=== PATIENT | female | born 1965 | race Caucasian/White ===

== ENCOUNTER 2025-01-31 06:33 | Inpatient (IN) | payer MEDICAID, SELFPAY ==
[2025-01-31] VITALS (65 sets, daily range): BP systolic 64–128; BP diastolic 39–89; PULSE 58–131; RESP 12–26; TEMP 36.2–36.7; O2SAT 67–100; BMI 29.0
--- NOTE | 2025-01-31 06:49 | XR_ITS ---
Examination: AP chest single view TECHNIQUE: AP portable upright chest single view Date and time: January 31, 2025 0705 hours Comparison November 14, 2023 INDICATIONS: Shortness of breath wheezing beginning today FINDINGS: Mild heart failure Mild enlargement cardiac contour Prominent vascular congestion. No lobar pneumonia IMPRESSION: Mild heart failure
--- NOTE | 2025-01-31 06:53 | EDNOTE_ITS ---
<Statement entered by Nina Reid MD - 02/01/25 08:17> I, Nina Reid MD, have reviewed the history, exam, and assessment of the patient. I have evaluated the patient independently and agree with the plan of care documented by [ ]. All diagnostic studies were reviewed and discussed. I confirm the diagnosis as documented by the Resident. I was present during the Medical Decision Making for this patient. The patient's plan of care was created between myself and the Resident and consistent with our discussion of the patient's case. ED General RME/HPI General Chief complaint: Shortness of Breath/Dyspnea Stated complaint: SOB Time Seen by Provider: 01/31/25 06:36 Arrival date/time: 01/31/25 06:33 RME / HPI RME / HPI narrative: 59-year-old female with past medical history of past substance abuse, bipolar disorder,A-fib, COPD, and active smoker comes in to the ER brought in by ambulance for shortness of breath. Patient was really short of breath and having some increased work of breathing when initially assessed and was not able to talk in full sentences. Patient was also more somnolent, but was able to state where she was and who she was, but not oriented to time. Patient mentioned that she has been having eye swelling for around 1 week and that she has been having shortness of breath for some time now, but does not remember since when. Stated no chest pain, nausea, vomiting, changes in bowel movement, or dysuria. Otherwise no other complaints at this time. Patient was saturating okay on nasal cannula. Related Data Previous Rx's ?Medication ?Instructions ?Recorded albuterol sulfate 90 mcg/actuation 1 inh inhalation QI D PRN shortness 11/04/23 aerosol inhaler of breath or wheezing #8.5 g kurt furosemide 20 mg tablet (Lasix) 20 mg PO QDAY 1 month #30 tabs 11/18/23 methylprednisolone 4 mg tablets in 4 mg PO QAM #21 tab s 11/18/23 a dose pack (Medrol (Severiano)) metoprolol succinate 25 mg capsule 25 mg PO QDAY 1 mon #30 ea 11/18/23 sprinkle, ext. release 24 hr Allergies Allergy/AdvReac Type Severity Reaction Status Date / Time Penicillins Allergy Severe I WILL Verified 01/31/25 06:45 Review of Systems Review of Systems Systems Reviewed: All systems reviewed, normal except as documented Past Medical History Past Medical History NEUROLOGIC: Positive Neurological Disorders and Seizures CARDIAC: Positive Cardiac Disorders and Hypertension; Negative Congestive Heart Failure RESPIRATORY: Positive Chronic Obstructive Pulmonary Disease (COPD) and Asthma GASTROINTESTINAL: Negative Gastrointestinal Disorders GENITOURINARY: Negative Genitourinary Disorders or Renal Disease REPRODUCTIVE: Negative Pelvic Inflammatory Disease MUSCULOSKELETAL: Negative Musculoskeletal Disorders ENDOCRINE: Negative Endocrine Disorders, Diabetes Mellitus Type 1, Diabetes Mellitus Type 2 or Jose's Disease HEMATOLOGIC: Negative Blood Disorders Family History FAMILY HISTORY: Negative Family Neurologic Problems Surgical History SURGICAL: Positive Section Social History SMOKING STATUS: Current every day smoker SUBSTANCE USE: marijuana and methamphetamine ED Exam Narrative Physical exam: Gen: A&O X 2 (not to time), mild respiratory distress HEENT: Eyes swollen RYLEE, Some discharge appreciated RYLEE, EOMI, Pupils reactive RYLEE, not icteric. External ears normal. No rhinorrhea. Dry mucous membranes. Neck: Supple, full range of motion, no observable masses, No meningeal sign. Lungs: Increased work of breathing, Wheezing bilateral. CV: RRR, no murmurs. Abdomen: Soft, nondistended, nontender, No rebound tenderness. MSK: No joint swelling, no redness, peripheral pulses presents, 1+ peripheral edema. Skin: No rashes, petechiae, lesions. Neuro: Somnolent, but able to follow commands and answer questions. No focal n eurological deficits. Psych: Cooperative Course Quality Measures none Orders Category Date Time Status Airborne precautions NOW Care 01/31/25 08:08 Active Bedside COVID-19 Antigen Test NOW Care 01/31/25 06:49 Active Bedside Influenza A&B Antigen Test NOW Care 01/31/25 06:51 Completed COVID-19 Screening Questionnaire NOW Care 01/31/25 11:33 Active Resource Protection Specialist Q4H START 00 Care 01/31/25 06:49 Active Continuous Pulse Oximetry NOW Care 01/31/25 06:49 Completed Decision to Admit X1 Care 01/31/25 11:33 Active EKG (ED ONLY) *Do not use* NOW Care 01/31/25 06:53 Completed [place]utherford [Urinary Catheter] QS Care 01/31/25 09:40 Active Strict Intake and Output Routine Care 01/31/25 09:40 Ordered CXRP [XR chest 1V portable] Stat Exams 01/31/25 06:49 Completed EKG (ED Only) Stat Exams 01/31/25 06:53 Draft ABG [Arterial Blood Gas] Routine Lab 01/31/25 08:33 Completed ABG [Arterial Blood Gas] Routine Lab 01/31/25 10:48 Completed ABG [Arterial Blood Gas] Stat Lab 01/31/25 07:20 Completed Alcohol, Urine Stat Lab 01/31/25 09:53 Completed CBC [CBC] Stat Lab 01/31/25 07:00 Completed CMP [Comprehensive Metabolic Panel] Stat Lab 01/31/25 07:32 Completed Drug Screen,Urine Stat Lab 01/31/25 09:53 Completed Lactic Acid [Lactate (Lactic Acid)] Stat Lab 01/31/25 07:00 Completed Magnesium Stat Lab 01/31/25 07:32 Completed PT [Prothrombin Time with INR] Stat Lab 01/31/25 07:32 Completed PTT [Partial Thromboplastin Time] Stat Lab 01/31/25 07:32 Completed Procalcitonin Stat Lab 01/31/25 07:32 Completed UA [Urinalysis] Stat Lab 01/31/25 09:53 Completed Albuterol/Ipratr Rt Kaitlynn [Duoneb Rt Kaitlynn] Med 01/31/25 06:49 Discontinued 3 ml INH X1 ONE Artificial Tears Med 01/31/25 09:03 Discontinued See Dose Instructions BOTH EYES X1 ONE Azithromycin Inj [Zithromax Inj] 500 mg Med 02/01/25 09:00 Pending Sodium Chloride 0.9% 250 ml [Ns] 250 ml IV QDAY Azithromycin Inj [Zithromax Inj] 500 mg Med 01/31/25 07:45 Discontinued Sodium Chloride 0.9% 250 ml [Ns] 250 ml IV X1 Furosemide Inj [Lasix Inj] Med 01/31/25 09:40 Discontinued 40 mg IVP X1 ONE Magnesium Sulfate 4 GM Ivpb [Magnesium Sulfate Ivpb] Med 01/31/25 08:41 Active 4 gm in 50 ml IV X1 MethylPREDNISolone. [SoluMEDROL Inj] Med 01/31/25 06:49 Discontinued 125 mg IVP X1 ONE MethylPREDNISolone.* [SoluMEDROL Inj] Med 01/31/25 07:00 Discontinued 125 mg IVP X1 ONE MethylPREDNISolone.* [SoluMEDROL Inj] Med 01/31/25 07:13 Discontinued 125 mg IVP X1 ONE cefTRIAXone/D5w 1gm IV premix [Rocephin/D5w 1gm IV Med 01/31/25 07:34 Discontinued premix] 1 gm in 50 ml IV X1 BiPAP / CPAP NOW RT 01/31/25 07:06 Active Oxygen Delivery NOW RT 01/31/25 06:52 Active Vital Signs Vital signs: Vital Signs Temperature 97.7 F 01/31/25 06:50 Pulse Rate 109 H 01/31/25 06:50 Respiratory Rate 26 H 01/31/25 06:50 Blood Pressure 113/85 H 01/31/25 06:50 Pulse Oximetry (%) 88 L 01/31/25 06:50 Oxygen Delivery Method Nasal Cannula 01/31/25 06:50 Oxygen Flow Rate 3 01/31/25 06:50 Discharge Plan Plan Patient Disposition: Admit Acute Care w/in Hospital Prescriptions/Referrals Prescriptions/Med Rec: No Action albuterol sulfate 90 mcg/actuation HFA aerosol inhaler 1 inh inhalation QID PRN (Reason: shortness of breath or wheezing) Qty: 8.5 0RF methylprednisolone [Medrol (Severiano)] 4 mg tablets,dose pack 4 mg PO QAM Qty: 21 0RF furosemide [Lasix] 20 mg tablet 20 mg PO QDAY 30 Days Qty: 30 1RF metoprolol succinate 25 mg capsule,sprinkle,ER 24hr 25 mg PO QDAY 30 Days Qty: 30 1RF Referrals: No Primary/Family,Physician [Primary Care Provider] - In 1 week Problem List Clinical Impression: Acute exacerbation of chronic obstructive airways disease, Hypoxia Patient/Caregiver Discharge Instructions Print Language: Bahamian Stand Alone Forms: Joan Award Info., Patient Portal Info Letter MDM Narrative [facility] hospital course: 6:44: Patient was seen and greeted personally by myself. Patient did have some increased work of breathing, yet was able to speak, but not sentences. Wheezing noted on auscultation and patient saturating above 88% on 6 L of nasal cannula. Ordered diagnostic imaging and labs as well as methylprednisolone and DuoNebs at this time. Ordered BIPAP. 7:30: Patient's ABG came back with pH of 7.16 and PCO2 of 104. Will continue with BiPAP for now. And reassess after 1 hour. 8:48: Patient reassessed, no clinical change still A/Ox2 and somnolent, but arousable. Patient repeat ABG did not show improvement. Will go up on RR on Bipap. Ordered Artificial eye drops. Repeat ABG in 1 hr after Bipap changes. 9:40: Ordered lasix as patient appears fluid overloaded as well. 11:25: Spoke with ICU resident for possible admission given the patient's repeat ABG did not show much improvement and pH was still 7.3 and pCO2 107. Patient is still alert and oriented x 2 not to time and is able to respond to questions and easily arousable to voice. Will see patient. Case disclosed with Attending Dr. Jeanette Miller PGY2 Disclaimer: Even though this this note was dictated by speech recognition and even though it was carefully revised there may still be minor errors in brickmason supervisor due to voice recognition software. Medication Administration(s) Medication Administration History Azithromycin 500 mg/ Sodium (Chloride) 250 mls @ 250 mls/hr IV QDAY ALIA Stop: 02/08/25 08:59 Magnesium Sulfate (Magnesium Sulfate Ivpb) 4 gm in 50 mls @ 12.5 mls/hr IV X1 ONE Stop: 01/31/25 12:40 Last Admin: 01/31/25 09:09 Dose: 12.5 mls/hr Documented By: ADALID Discontinued Medications Albuterol/Ipratropium (Albuterol/Ipratropium (Duoneb) Rt Kaitlynn 3 Ml Nebu) 3 ml INH X1 ONE Stop: 01/31/25 06:50 Last Admin: 01/31/25 07:14 Dose: 3 ml Documented By: FABIEN Artificial Tears (Artificial Tears 225 Drop/15 Ml Btl) 0 drop BOTH EYES X1 ONE Stop: 01/31/25 09:04 Last Admin: 01/31/25 09:10 Dose: 1 drop Documented By: ADALID Comments: 1 drop per eye Furosemide (Furosemide Inj 10 Mg/Ml 4ml Vial) 40 mg IVP X1 ONE Stop: 01/31/25 09:41 Last Admin: 01/31/25 09:54 Dose: 40 mg Documented By: GM Ceftriaxone Sodium/Dextrose (Rocephin/D5w 1gm Iv Premix) 1 gm in 50 mls @ 100 mls/hr IV X1 ONE Stop: 01/31/25 08:03 Last Admin: 01/31/25 08:05 Dose: Not Given Documented By: ADALID Non-Admin Reason: Discontinued Azithromycin 500 mg/ Sodium (Chloride) 250 mls @ 250 mls/hr IV X1 ONE Stop: 01/31/25 08:44 Last Infusion: 01/31/25 09:13 Dose: Infused Documented By: Admin: 01/31/25 08:03 Dose: 250 mls/hr Documented By: ADALID Methylprednisolone Sodium Succinate (Methylprednisolone Sod Succ 40 Mg Vial) 125 mg IVP X1 ONE Stop: 01/31/25 06:50 Last Admin: 01/31/25 07:42 Dose: Not Given Documented By: ADALID Non-Admin Reason: Discontinued Methylprednisolone Sodium Succinate (Methylprednisolone Sod Succ 62.5 Mg/Ml 2ml Vial) 125 mg IVP X1 ONE Stop: 01/31/25 07:01 Last Admin: 01/31/25 07:42 Dose: Not Given Documented By: ADALID Non-Admin Reason: Discontinued Methylprednisolone Sodium Succinate (Methylprednisolone Sod Succ 62.5 Mg/Ml 2ml Vial) 125 mg IVP X1 ONE Stop: 01/31/25 07:14 Last Admin: 01/31/25 07:41 Dose: 125 mg Documented By: ADALID
--- NOTE | 2025-01-31 06:53 | EKG_ITS ---
[facility] Test Date: 2025-01-31 Pat Name: MICHAEL MILES Department: Room: - Gender: Female [employer]: : 1965 Requested By: Zelalem Miller Order Number: [id number] Reading MD: Zelalem Miller Measurements Intervals Cornelius Rate: 124 P: MT: QRS: 146 QRSD: 98 T: 47 QT: 297 QTc: 427 Interpretive Statements ATRIAL FIBRILLATION WITH RAPID VENTRICULAR RESPONSE RIGHT AXIS DEVIATION [QRS AXIS > 100] LOW QRS VOLTAGE [QRS DEFLECTION < 0.5/1.0 mV IN LIMB/CHEST LEADS] ANTEROSEPTAL MYOCARDIAL INFARCTION , OF INDETERMINATE AGE [40+ ms Q WAVE IN V1-V4] Compared to ECG 11/16/2023 06:27:53 Right-axis deviation now present Myocardial infarct finding still present /store/S0/[id number]/ecg/[id number].pdf
[2025-01-31 07:08] LABS: Lactate (Lactic Acid) 0.7 mMol/L (0.4-2.0)
[2025-01-31 07:11] LABS: Basophils # (Auto) 0.0 Thou/mm3 (0.0-0.2); Basophils % (Auto) 1 % (0-2.5); Eosinophils # (Auto) 0.0 Thou/mm3 (0.0-0.5); Eosinophils % (Auto) 1 % (0-10); Hematocrit 45.1 % (36.0-46.0); Hemoglobin 12.3 g/dL (12.0-16.0); Immature Granulocytes Auto 0.04 Thou/mm3 (0.00-0.00); Lymphocytes # (Auto) 1.2 Thou/mm3 (1.0-4.8); Lymphocytes % (Auto) 21 % (10-50); Mean Corpuscular HGB Conc 27.3 g/dl (31.0-37.0); Mean Corpuscular Hemoglobin 26.5 pg (25.0-35.0); Mean Corpuscular Volume 97 fL (80-100); Monocytes # (Auto) 0.4 Thou/mm3 (0.0-0.8); Monocytes % (Auto) 7 % (0-12); Neutrophils # (Auto) 3.9 Thou/mm3 (1.8-7.7); Neutrophils % (Auto) 70 % (37-80); Nucleated Red Blood Cell # 0.00 Thou/mm3 (0.00-0.00); Nucleated Red Blood Cell % 0 /100 WBC (0); Platelet Count 83 Thou/mm3 (140-440); RDW Standard Deviation 51.3 fL (36.4-46.3); Red Blood Count 4.65 Miln/mm3 (4.00-5.20); White Blood Count 5.6 Thou/mm3 (3.6-11.0)
[2025-01-31] MEDS: ALBUTEROL/IPRATROPIUM (Duoneb) RT SOL 3 ML NEBU INH ×3 (07:14→19:30)
[2025-01-31 07:27] LABS: Base Excess 5 (-3-3); HCO3 37 mEq/L (20-26); Inspired Oxygen, FIO2 100 %; O2 Saturation 101 % (91-98); PCO2 104 mmHg (32.0-48.0); PO2 325 mmHg (83-108)
[2025-01-31 07:29] LABS: Allen Test Not Performed; Puncture Site Left Radial; pH, Arterial 7.16 (7.35-7.45)
[2025-01-31] MEDS: MethylPREDNISolone SOD SUCC 62.5 MG/ML 2ML VIAL 125 MG IVP (07:41)
[2025-01-31 07:54] LABS: INR 1.2 (0.9-1.3); Partial Thromboplastin Time 25.4 Seconds (22.0-36.0); Prothrombin Time 12.7 Seconds (9.0-12.2)
[2025-01-31] MEDS: AZITHROMYCIN INJ 500 MG in SODIUM CHLORIDE 0.9% 250 ML 250 ML 250 MG IV (08:03)
[2025-01-31 08:08] LABS: Alanine Aminotransferase 28 U/L (10-49); Albumin, Serum 4.0 gm/dL (3.4-4.8); Albumin/Globulin Ratio 2.1 (1.2-2.2); Alkaline Phosphatase 110 U/L (46-116); Anion Gap 3 (7-16); Aspartate Amino Transferase 37 U/L (0-34); BUN/Creatinine Ratio 19 Ratio (12-20); Bilirubin,Total 0.6 mg/dL (0.3-1.2); Blood Urea Nitrogen 26 mg/dL (9-23); Calcium 10.0 mg/dL (8.3-10.6); Calcium (Corrected) 10.0 mg/dL (8.5-10.1); Carbon Dioxide 37.2 mMol/L (20.0-31.0); Chloride 103 mMol/L (98-107); Creatinine (Component) 1.4 mg/dL (0.6-1.3); Estimated Creatinine Clearance 47.6 mL/min (>60); Globulin 1.9 gm/dL (2.3-3.5); Glucose 135 mg/dL (74-106); Magnesium 1.5 mg/dL (1.6-2.6); Osmolality,Calculated 291 (275-295); Potassium 5.1 mMol/L (3.4-5.1); Procalcitonin 0.06 ng/ml (0.0-0.49); Sodium 143 mMol/L (136-145); Total Protein 5.9 gm/dL (5.7-8.2); eGFR 43 See Note
[2025-01-31 08:37] LABS: Base Excess 4 (-3-3); HCO3 37 mEq/L (20-26); Inspired Oxygen, FIO2 100 %; O2 Saturation 101 % (91-98); PCO2 114 mmHg (32.0-48.0); PO2 297 mmHg (83-108)
[2025-01-31 08:41] LABS: pH, Arterial 7.12 (7.35-7.45)
[2025-01-31 08:42] LABS: Allen Test Not Performed; Puncture Site Right Radial
[2025-01-31] MEDS: Magnesium Sulfate 4 GM Ivpb 4 GM/50 ML BAG IV (09:09)
[2025-01-31] MEDS: Artificial Tears 225 DROP/15 ML BTL BOTH EYES (09:10)
[2025-01-31] MEDS: FUROSEMIDE INJ 10 MG/ML 4ML VIAL 40 MG IVP (09:54)
[2025-01-31 10:11] LABS: Collection Type, Urine Voided
[2025-01-31 10:22] LABS: Bacteria,Urine Rare; Bilirubin,Urine Negative (Negative); Blood,Urine Negative (Negative); Clarity,Urine Clear (Clear/Hazy); Color,Urine Yellow (Lt Yel-Yel); Glucose, Urine Negative (Negative); Granular Casts,Urine 3 /hpf (0-1); Hyaline Casts,Urine 3 /hpf (0-1); Ketones,Urine Negative (Negative); Leukocyte Esterase,Urine Negative (Negative); Nitrite,Urine Negative (Negative); PH,Urine 6.0 (5.0-7.0); Protein,Urine 1+ (Neg - Trace); RBC,Urine 5 /hpf (0-3); Specific Gravity,Urine 1.030 (1.001-1.035); Squamous Epithelial Cell,Urine < 1 /hpf (0-5); Urobilinogen,Urine 2.0 mg/dL (0.0-1.0); WBC,Urine 2 /hpf (0-5)
[2025-01-31 10:33] LABS: Alcohol, Urine Negative (Negative); Amphetamine/Methamp Scrn,U Negative (Negative); Barbiturate Screen,Urine Negative (Negative); Benzodiazepines Screen,Urine Negative (Negative); Benzoylecgonine Screen, Ur Negative (Negative); Fentanyl Screen,Urine Negative (Negative); Opiate Screen,Urine Negative (Negative); THC Screen,Urine Negative (Negative)
[2025-01-31 10:56] LABS: Base Excess 3 (-3-3); HCO3 35 mEq/L (20-26); Inspired Oxygen, FIO2 70 %; O2 Saturation 98 % (91-98); PCO2 107 mmHg (32.0-48.0); PO2 109 mmHg (83-108)
[2025-01-31 10:59] LABS: Allen Test Not Performed; Puncture Site Right Radial; pH, Arterial 7.13 (7.35-7.45)
--- NOTE | 2025-01-31 12:21 | XR_ITS ---
Examination: CT brain head without contrast. 2-D sagittal coronal reconstructions Date and time of exam:January 31, 2025, 1653 hours Comparison April 18, 2020 INDICATIONS: Altered mental status today CTDI: vol (mGy):54.7 DLP: (mGycm):1111 Technique: Multiple CT axial sections of the brain have been obtained, 5 mm slice thickness. Contrast has not been administered. 2-D sagittal, coronal reconstructions have been obtained Low dose protocols were performed. One or more of the following dose reduction techniques were used; automated exposure control, adjustment of the mA and/or KV according to patient size, use of iterative reconstruction technique. Findings: No significant ventricular enlargement. Intra-axial or extra-axial hemorrhage density is not seen. No mass effect or midline shift Basal cisterns are not remarkable. Fourth ventricle is midline. Cranial vault intact. Impression: Negative for acute hemorrhage, mass effect or midline shift Advise clinical correlation follow-up accordingly
[2025-01-31] MEDS: SUCCINYLCHOLINE INJ 20 MG/ML VIAL 10 ML 150 MG IV (12:47)
[2025-01-31] MEDS: ETOMIDATE INJ 2 MG/ML VIAL 10 ML 20 MG IVP (12:48)
--- NOTE | 2025-01-31 13:00 | XR_ITS ---
Examination: AP chest single view Technique one AP portable supine chest single view Date and time: January 31, 2025, 1371 hours Comparison January 31, 2025 0705 hours INDICATIONS: Hypoxic respiratory failure postintubation FINDINGS: Mild enlargement cardiac contour Moderate vascular congestion. No aspiration pneumonia. Endotracheal tube tip 24 mm above michelle. Orogastric tube in the stomach the tip is below the level of the film IMPRESSION: Endotracheal tube tip 24 mm above michelle Enlarged cardiac contour with moderate vascular congestion No aspiration pneumonia
--- NOTE | 2025-01-31 13:00 | PC.NURSE ---
delay on medications due to patient getting intubated, unstable blood pressure titrating the levo drip every five minutes, patient is resless, titrating sedation, icu at bedside
[2025-01-31] MEDS: PROPOFOL 1,000 MG IVPB 1,000 MG/100 ML VIAL 2.517 MG IV (13:14)
--- NOTE | 2025-01-31 13:34 | ESHP_ITS ---
<Statement entered by Trina Leo MD - 02/01/25 08:11> TOTAL CC TIME:45 MIN I saw and evaluated the patient. I reviewed the resident?s note and agree with findings and plan as documented in the resident?s note. Upon my evaluation, this patient had a high probability of imminent or life- threatening deterioration due to acute on chronic hypoxic and hypercapnic respiratory failure which required my direct attention, intervention, and personal management. This time is exclusive of time spent on procedures, which are documented separately if performed. Not improving respiratory acidosis while on noninvasive positive pressure ventilation Mostly somnolent and not safe to be kept on BiPAP. Multiple adjustments attempted at bedside but mainly due to to a poor air seal minute ventilation remained low Was intubated. Steroids, nebs and empiric antibiotics pending blood cultures/sputum cultures ordered Moderate air trapping but not severe noted postintubation <Statement entered by Skylar Sanches MD - 02/01/25 07:47> Patient was seen and examined by me personally. I have directly supervised and reviewed documentation by the team resident and agree with its findings with any exceptions or additional findings as below. Plan of care was discussed with the attending, Dr. Leo. Skylar Sanches, PGY-3 Documentation for date of: 01/31/25 HPI History of Present Illness History of present illness: Ms. Fely Bland is a 59-year-old female with a past medical history significant for past substance abuse, bipolar disorder, A-fib on Eliqis, HFrEF, COPD, and active smoking. She was brought to the Emergency Room by ambulance due to shortness of breath. The patient reported to EMS a history of dyspnea for an indeterminate period that has recently worsened. She denied chest pain, nausea, vomiting, changes in bowel movements, or dysuria. Complete history unattainable due to patient's somnolent status. ED course: Initial vitals included temperature 97.7, heart rate 109, respiratory 26, blood pressure 113/85, 88% on 3 L via nasal cannula. Patient's initial ABG showed a pH of 7.16 and a PCO2 of 104, and she were started on BiPAP. A reassessment showed no clinical improvement, so the respiratory rate on the BiPAP was increased. Then IV lasix 40 mg x 1 was given due to a suspicion of fluid overload. After another repeat ABG showed minimal improvement with a pH of 7.3 and PCO2 of 107, the decision was made to intubate and admit to the ICU. The patient remained alert, oriented to person and place, and was easily arousable to voice. Notable labs included K 5.1, Cr 1.4, Glucose 135, Magnesium 1.5, AST 37. Urine toxicology screen was negative. Patient recieved IV methylprednisolone 125 mg x3, IV ceftriaxone 1 g x 1, IV azithromycin 500 mg x 1, IV magnesium 4 g x 1. Past Medical History: As stated above. Past surgical history: 3 C-sections Social history: Per chart review patient drinks alcohol occasionally. Smokes half a pack of cigarettes per day. Use methamphetamines daily. Allergies: Penicillin Home medications: Pending med reconciliation Patient admitted to ICU due to inability to protect airway requiring mechanical ventilation. Review of Systems Review of Systems Narrative Review of Systems: All systems reviewed negative unless stated otherwise above. Exam Vital Signs Temp Pulse Resp BP Pulse Ox O2 Del Method O2 Flow Rate 97.7 F 123 H 26 H 114/75 97 Room Air 4 01/31/25 06:50 01/31/25 10:30 01/31/25 10:30 01/31/25 09:54 01/31/25 10:30 01/31/25 09:33 01/31/25 07:00 FiO2 70 01/31/25 10:30 Narrative Exam Gen: Somnolent with BiPAP in use, unable to protect airway, not in respiratory distress, HEENT: Eyes swollen RYLEE, Some discharge appreciated RYLEE, EOMI, Pupils reactive RYLEE, not icteric. External ears normal. No rhinorrhea. Dry mucous membranes. Neck: Supple, full range of motion, no observable masses, No meningeal sign. RESP: Reduced air entry bilaterally, no wheezes heard CVS: RRR, no murmurs. Bilat pedal +1 Abdomen: Soft, nondistended, nontender, No rebound tenderness. Bowel sounds present. MSK: No joint swelling, no redness, peripheral pulses presents, 1+ peripheral edema. Skin: No rashes, petechiae, lesions. Neuro: Somnolent, but able to follow commands and answer questions. No focal neurological deficits. Psych: Cooperative Results: Labs 01/31/25 07:00 01/31/25 07:32 Labs: Short CBC 01/31/25 Range/Units 07:00 WBC 5.6 (3.6-11.0) Thou/mm3 Hgb 12.3 (12.0-16.0) g/dL Hct 45.1 (36.0-46.0) % Plt Count 83 L (140-440) Thou/mm3 BMP 01/31/25 07:32 Sodium 143 Potassium 5.1 Chloride 103 Carbon Dioxide 37.2 H BUN 26 H Creatinine 1.4 H Glucose 135 H Calcium 10.0 Liver Function 01/31/25 Range/Units 07:32 Total Bilirubin 0.6 (0.3-1.2) mg/dL AST 37 H (0-34) U/L ALT 28 (10-49) U/L Alkaline Phosphatase 110 (46-116) U/L Albumin 4.0 (3.4-4.8) gm/dL Urine 01/31/25 Range/Units 09:53 Urine Color Yellow (Lt Yel-Yel) Urine Clarity Clear (Clear/Hazy) Urine pH 6.0 (5.0-7.0) Ur Specific Sheldon 1.030 (1.001-1.035) Urine Protein 1+ A (Neg - Trace) Urine Glucose (UA) Negative (Negative) ABG Interpretation ABG results: 01/31/25 01/31/25 01/31/25 07:20 08:33 10:48 ABG pH 7.16 L* 7.12 L* 7.13 L* ABG pCO2 104 H* 114 H* D 107 H* ABG pO2 325 H 297 H D 109 H D ABG HCO3 37 H 37 H 35 H ABG O2 Saturation 101 H 101 H 98 ABG Base Excess 5 H 4 H 3 Quality Measures Quality Measures none Medications Home Medications and Allergies Allergies Allergy/AdvReac Type Severity Reaction Status Date / Time Penicillins Allergy Severe I WILL Verified 01/31/25 06:45 Visit Medications Acetaminophen (Acetaminophen 325 Mg Tablet) 650 mg PO Q4HR PRN PRN Reason: PAIN SCALE 1-3 (mild Stop: 03/02/25 12:24 Acetaminophen (Acetaminophen Supp 650 Mg Supp) 650 mg CA Q4HR PRN PRN Reason: PAIN SCALE 1-3 (mild Stop: 03/02/25 12:24 Albuterol/Ipratropium (Albuterol/Ipratropium (Duoneb) Rt Kaitlynn 3 Ml Nebu) 3 ml INH Q6HRRT ALIA Stop: 03/02/25 12:59 Enoxaparin Sodium (Enoxaparin Sod Inj 40 Mg/0.4 Ml Syringe) 40 mg SC QDAY [facility] Stop: 02/14/25 12:29 Furosemide (Furosemide Inj 10 Mg/Ml 4ml Vial) 40 mg IVP QDAY ALIA Stop: 03/03/25 08:59 Azithromycin 500 mg/ Sodium (Chloride) 250 mls @ 250 mls/hr IV QDAY ALIA Stop: 02/08/25 08:59 Propofol (Diprivan Ivpb) 1,000 mg in 100 mls @ 2.517 mls/hr IV .Q24H PRN; Protocol PRN Reason: PER PROTOCOL Stop: 03/02/25 12:30 Last Admin: 01/31/25 13:14 Dose: 5 mcg/kg/min, 2.517 mls/hr Ceftriaxone Sodium/Dextrose (Rocephin/D5w 1gm Iv Premix) 1 gm in 50 mls @ 100 mls/hr IV QDAY [facility] Stop: 02/07/25 12:41 Norepinephrine/Dextrose (Levophed In D5w 8mg/250ml) 8 mg in 250 mls @ 7.867 mls/hr IV .Q24H PRN; Protocol PRN Reason: PER PROTOCOL Stop: 03/02/25 13:30 Methylprednisolone Sodium Succinate (Methylprednisolone Sod Succ 40 Mg Vial) 60 mg IVP BID [facility] Stop: 02/07/25 20:59 Pantoprazole Sodium (Pantoprazole Inj 40 Mg Vial) 40 mg IVP QDAY ALIA Stop: 03/02/25 12:29 Discontinued Medications Albuterol/Ipratropium (Albuterol/Ipratropium (Duoneb) Rt Kaitlynn 3 Ml Nebu) 3 ml INH X1 ONE Stop: 01/31/25 06:50 Last Admin: 01/31/25 07:14 Dose: 3 ml Artificial Tears (Artificial Tears 225 Drop/15 Ml Btl) 0 drop BOTH EYES X1 ONE Stop: 01/31/25 09:04 Last Admin: 01/31/25 09:10 Dose: 1 drop Calcium Gluconate (Calcium Gluconate 10% Inj 1 Gm/10 Ml Vial) 1 gm IV X1 ONE; Protocol Stop: 01/31/25 13:31 Etomidate (Etomidate Inj 2 Mg/Ml Vial 10 Ml) 20 mg IVP X1 ONE Stop: 01/31/25 12:33 Last Admin: 01/31/25 12:48 Dose: 20 mg Furosemide (Furosemide Inj 10 Mg/Ml 4ml Vial) 40 mg IVP X1 ONE Stop: 01/31/25 09:41 Last Admin: 01/31/25 09:54 Dose: 40 mg Ceftriaxone Sodium/Dextrose (Rocephin/D5w 1gm Iv Premix) 1 gm in 50 mls @ 100 mls/hr IV X1 ONE Stop: 01/31/25 08:03 Last Admin: 01/31/25 08:05 Dose: Not Given Azithromycin 500 mg/ Sodium (Chloride) 250 mls @ 250 mls/hr IV X1 ONE Stop: 01/31/25 08:44 Last Infusion: 01/31/25 09:13 Dose: Infused Magnesium Sulfate (Magnesium Sulfate Ivpb) 4 gm in 50 mls @ 12.5 mls/hr IV X1 ONE Stop: 01/31/25 12:40 Last Infusion: 01/31/25 13:16 Dose: Infused Methylprednisolone Sodium Succinate (Methylprednisolone Sod Succ 40 Mg Vial) 125 mg IVP X1 ONE Stop: 01/31/25 06:50 Last Admin: 01/31/25 07:42 Dose: Not Given Methylprednisolone Sodium Succinate (Methylprednisolone Sod Succ 62.5 Mg/Ml 2ml Vial) 125 mg IVP X1 ONE Stop: 01/31/25 07:01 Last Admin: 01/31/25 07:42 Dose: Not Given Methylprednisolone Sodium Succinate (Methylprednisolone Sod Succ 62.5 Mg/Ml 2ml Vial) 125 mg IVP X1 ONE Stop: 01/31/25 07:14 Last Admin: 01/31/25 07:41 Dose: 125 mg Sodium Chloride (Sodium Chloride Rt 10% 15 Ml Nebu) 5 ml INH X1 ONE Stop: 01/31/25 12:47 Succinylcholine Chloride (Succinylcholine Inj 20 Mg/Ml Vial 10 Ml) 150 mg IV X1 ONE Stop: 01/31/25 12:33 Last Admin: 01/31/25 12:47 Dose: 150 mg Assessment & Plan Plan Summary: Ms. Fely Bland is 59-year-old female with a history of past substance abuse, bipolar disorder, A-fib on Eliquis, COPD, HFrEF,and active smoking presented with worsening shortness of breath of an unknown duration. She was admitted to the ICU due to persistent respiratory acidosis, which did not improve with BiPAP, and required intubation and mechanical ventilation for airway protection. [facility] [employer] [facility]: Patient is intubated for airway protection and sedated with fentanyl and propofol #Acute encephalopathy DDX: Hypercapnia, drug-induced, metabolic, infection DX: ABG, CXR, urine tox screen ABG showed PCO2 in the low 100s Urine toxicology negative but unsure if taken other drugs that are not detectable on current machine Chest x-ray has been clear, similar to baseline RX: ? Started on antibiotics empirically ? Follow-up on blood culture, sputum culture RRX: monitor for worsening clinical status CVS: #Hx of HrEF Mild volume overload on examination, +2 bilat pedal edema Last ECHO 11/19 Estimtaed EF 40-45% RX: ?BNP in a.m. ?Follow-up on echo with bubble study ?Cardiac stratification ?Order restart GDMT when med reconciliation is completed #Hypotension DDX: Likely secondary to sedatives Blood pressures since intubation have been 60-100s/30-80s RX: ?Levophed infusion ?Midodrine 10 mg 3 times daily RRX: Monitor blood pressure, once blood pressure more stable will wean off pressor. #Chronic A-fib [id number]: 1 Rate: Controlled with metoprolol Rhythm: Irregular AC: Eliquis 5mg BID RX: ?Started home dose Eliquis 5 mg twice daily ?Will not start home metoprolol given low blood pressures and normal heart rate RRX: ?Monitor telemetry reading. RESP: #Intubated on mechanical ventilation, airway protection ABG after intubation pH 7.13, PCO2 104 RX: ?Patient on volume control currently, respiratory rate 20, tidal volume 350, PEEP 5, FiO2 90% ?Chest x-ray postintubation, no evidence of any pneumonia/pulmonary edema #Hypoxic hypercapnic respiratory failure #Respiratory acidosis #History of COPD DDX: COPD exacerbation, CHF, CAP, use of sedatives at home, arrhythmia Initial ABG showed a pH of 7.16 and a PCO2 of 104, and she were started on BiPAP but no clinical improvement in blood gas DX: ABG, echo with bubble study, urine tox screen, EKG RX: ?Maintaining FiO2 88 to 92% given COPD history ?Methylprednisolone 60 mg IV twice daily ?DuoNeb every 6 hours ?Respiratory acidosis correct slowly aim for pH increased to 7.25 RRX: Monitor ABG, CXR in a.m. GI: No active issues. RENAL: #Acute kidney injury Likely prerenal (cardiorenal) Cr 1.4 (baseline ~1.0) DX: CMP RX: ?Not giving fluids at this stage as suspecting volume overload RRX: Check creatinine level in a.m. and follow up on echo study ENDO: No active issues. MSK: No active issues. ID: #Rule-out community-acquired pneumonia Chest x-ray showed no obvious lobar pneumonia RX: ?Started on IV ceftriaxone 1 g daily ?Started on IV azithromycin 250 mg daily ?Follow sputum culture ?Follow-up blood culture Hospital Maintenance: Dispo: ICU DVT ppx: Apixaban 5 mg twice daily GI ppx: IV Protonix Diet: NPO Antimicrobials: Ceftriaxone and Azithromycin (01/31 - IV lines: PIV Code status: Full Code Case discussed with my attending Dr. Trina Leo, and senior resident Dr. Ashvin Sanches PGY-3 Francisco Willett MD PGY-1
[2025-01-31] MEDS: Norepinephrine/D5W 8mg/250ml 8 MG/250 ML BAG 7.867 MG IV (13:35)
[2025-01-31 13:54] LABS: Base Excess 3 (-3-3); HCO3 35 mEq/L (20-26); Inspired Oxygen, FIO2 100 %; O2 Saturation 83 % (91-98); PCO2 104 mmHg (32.0-48.0)
[2025-01-31 13:58] LABS: PO2 54 mmHg (83-108); pH, Arterial 7.13 (7.35-7.45)
[2025-01-31 13:59] LABS: Allen Test Not Performed; Puncture Site Right Radial
[2025-01-31] MEDS: fentaNYL 2,500 MCG/250 ML BAG 2,500 MCG/250 ML BAG IV (14:21)
[2025-01-31] MEDS: cefTRIAXone/D5w 1gm IV premix 1 GM/50 ML BAG IV (15:05)
[2025-01-31] MEDS: MIDODRINE 5 MG TABLET 10 MG PO ×2 (15:07→21:22)
--- NOTE | 2025-01-31 15:46 | PC.SS ---
Update: Patient intubated/sedated. Minimal pressor support. Patient upon admission experiencing shortness of breath and fluid overload.
--- NOTE | 2025-01-31 15:46 | PC.NURSE ---
UNABLE TO REACH [facility] [employer] LATASHA BOYLE NOT IN SERVICE. ATTEMPT TO CALL SUPPORT PERSON RAYSHAWN TOLEDO TO VOICEMAIL AND INBOX FULL.
[2025-01-31] MEDS: PROPOFOL 1,000 MG IVPB 1,000 MG/100 ML VIAL 20.14 MG IV ×2 (17:00→21:28)
--- NOTE | 2025-01-31 18:02 | PC.NURSE ---
UNABLE TO COMPLETE MED REC. FAMILY TO BRING MEDICATIONS
[2025-01-31 18:24] LABS: Base Excess 6 (-3-3); HCO3 34 mEq/L (20-26); Inspired Oxygen, FIO2 90 %; O2 Saturation 99 % (91-98); PCO2 63 mmHg (32.0-48.0); PO2 103 mmHg (83-108); pH, Arterial 7.34 (7.35-7.45)
[2025-01-31 18:27] LABS: Allen Test Performed/OK; Puncture Site Right Radial
--- NOTE | 2025-01-31 18:30 | ESOP_ITS ---
<Statement entered by Nina Reid MD - 02/01/25 08:19> I, Nina Reid MD, have reviewed the history, exam, and assessment of the patient. I have evaluated the patient independently and agree with the plan of care documented by [ ]. All diagnostic studies were reviewed and discussed. I confirm the diagnosis as documented by the Resident. I was present during the Medical Decision Making for this patient. The patient's plan of care was created between myself and the Resident and consistent with our discussion of the patient's case. PROCEDURES: Procedure Date / Time 01/31/25 13:00 Intubation Indication(s): acute Resp Failure and inability to protect airway Informed consent obtained: from patient Time out done, and the following verified: correct patient, side and site, procedure, patient position and implants and/or equipment Sedative: etomidate Mg given: 20 Paralytic: succinylcholine Mg given: 100 Laryngoscope: Irineo ET tube size: 7.5 ET tube uncuffed: No Tube secured depth (cm): 23 Tube secured location: teeth Tube placement confirmation: visualized tube passing through cords, equal breath sounds bilaterally, no breath sounds over epigastrium and confirmation by capnometry Patient tolerated procedure: well EBL(ml): 0 Intubation complications: none Additional comments: Francisco Willett MD PGY-1, assisted Dr. Reid with intubation.
[2025-01-31 18:52] LABS: B-Type Natriuretic Peptide 560 pg/mL (0-100)
[2025-01-31] MEDS: APIXABAN 2.5 MG TABLET 5 MG PO (20:45)
[2025-01-31 21:24] LABS: Anion Gap 8 (7-16); BUN/Creatinine Ratio 11 Ratio (12-20); Blood Urea Nitrogen 16 mg/dL (9-23); Calcium 10.7 mg/dL (8.3-10.6); Carbon Dioxide 31.9 mMol/L (20.0-31.0); Chloride 103 mMol/L (98-107); Creatinine (Component) 1.5 mg/dL (0.6-1.3); Estimated Creatinine Clearance 44.4 mL/min (>60); Glucose 149 mg/dL (74-106); Magnesium 2.4 mg/dL (1.6-2.6); Osmolality,Calculated 289 (275-295); Phosphorous 3.8 mg/dL (2.4-5.1); Potassium 5.8 mMol/L (3.4-5.1); Sodium 143 mMol/L (136-145); eGFR 40 See Note
[2025-01-31] MEDS: SOD POLYSTYRENE SULFON SUSP 15 GM/60 ML BTL 30 GM NG (22:15)
[2025-01-31] MEDS: INSULIN HUM REGULAR 1 UNIT/0.01 ML (PER UNIT) 5 UNIT IV (22:15)
[2025-01-31] MEDS: DEXTROSE 50%-WATER INJ 50 ML SYRINGE IVP (22:18)
[2025-02-01] VITALS (111 sets, daily range): BP systolic 60–113; BP diastolic 42–79; PULSE 57–118; RESP 20–22; TEMP 36.1–36.8; O2SAT 79–100; BMI 35.2
[2025-02-01] MEDS: ALBUTEROL/IPRATROPIUM (Duoneb) RT SOL 3 ML NEBU INH ×4 (01:28→18:10)
[2025-02-01] MEDS: PROPOFOL 1,000 MG IVPB 1,000 MG/100 ML VIAL 20.14 MG IV ×2 (02:16→05:52)
[2025-02-01] MEDS: fentaNYL 2,500 MCG/250 ML BAG 2,500 MCG/250 ML BAG 17.5 MCG IV ×2 (03:29→17:52)
[2025-02-01 04:55] LABS: Base Excess 7 (-3-3); HCO3 34 mEq/L (20-26); Inspired Oxygen, FIO2 85 %; O2 Saturation 99 % (91-98); PCO2 60 mmHg (32.0-48.0); PO2 106 mmHg (83-108); pH, Arterial 7.36 (7.35-7.45)
[2025-02-01 05:00] LABS: Allen Test Performed/OK; Puncture Site Right Radial
[2025-02-01] MEDS: MIDODRINE 5 MG TABLET 10 MG PO ×3 (05:20→21:45)
[2025-02-01 05:40] LABS: Basophils # (Auto) 0.0 Thou/mm3 (0.0-0.2); Basophils % (Auto) 0 % (0-2.5); Eosinophils # (Auto) 0.0 Thou/mm3 (0.0-0.5); Eosinophils % (Auto) 0 % (0-10); Hematocrit 42.8 % (36.0-46.0); Hemoglobin 12.5 g/dL (12.0-16.0); Immature Granulocytes Auto 0.03 Thou/mm3 (0.00-0.00); Lymphocytes # (Auto) 0.7 Thou/mm3 (1.0-4.8); Lymphocytes % (Auto) 11 % (10-50); Mean Corpuscular HGB Conc 29.2 g/dl (31.0-37.0); Mean Corpuscular Hemoglobin 26.4 pg (25.0-35.0); Mean Corpuscular Volume 90 fL (80-100); Monocytes # (Auto) 0.2 Thou/mm3 (0.0-0.8); Monocytes % (Auto) 4 % (0-12); Neutrophils # (Auto) 5.7 Thou/mm3 (1.8-7.7); Neutrophils % (Auto) 85 % (37-80); Nucleated Red Blood Cell # 0.00 Thou/mm3 (0.00-0.00); Nucleated Red Blood Cell % 0 /100 WBC (0); Platelet Count 112 Thou/mm3 (140-440); RDW Standard Deviation 47.6 fL (36.4-46.3); Red Blood Count 4.74 Miln/mm3 (4.00-5.20); White Blood Count 6.7 Thou/mm3 (3.6-11.0)
--- NOTE | 2025-02-01 06:00 | XR_ITS ---
Examination: AP chest single view TECHNIQUE: AP portable semiupright chest single view Date and time: February 01, 2025 0523 hours Comparison January 31, 2025 INDICATIONS: Hypoxic respiratory failure this week post intubation FINDINGS: Mild heart failure Moderate enlargement cardiac contour. Prominent vascular congestion with perihilar basilar edema Consider superimposed pneumonia at the lung bases Endotracheal tube tip 13 mm above michelle The orogastric tube is in the stomach, the tip is below the level of the film IMPRESSION: Mild heart failure Consider superimposed pneumonia at the lung bases
[2025-02-01 06:34] LABS: Alanine Aminotransferase 19 U/L (10-49); Albumin, Serum 3.2 gm/dL (3.4-4.8); Albumin/Globulin Ratio 1.8 (1.2-2.2); Alkaline Phosphatase 93 U/L (46-116); Anion Gap 8 (7-16); Aspartate Amino Transferase 24 U/L (0-34); BUN/Creatinine Ratio 16 Ratio (12-20); Bilirubin,Total 0.7 mg/dL (0.3-1.2); Blood Urea Nitrogen 23 mg/dL (9-23); Calcium 9.6 mg/dL (8.3-10.6); Calcium (Corrected) 10.2 mg/dL (8.5-10.1); Carbon Dioxide 31.8 mMol/L (20.0-31.0); Cardiac Risk Estimate 3.4 RATIO (3.7-5.6); Chloride 103 mMol/L (98-107); Cholesterol 125 mg/dL (132-200); Creatinine (Component) 1.4 mg/dL (0.6-1.3); Estimated Creatinine Clearance 51.5 mL/min (>60); Globulin 1.8 gm/dL (2.3-3.5); Glucose 180 mg/dL (74-106); Glucose Estimated Average 131 mg/dL (80-131); HDL Cholesterol 37 mg/dL (40-60); Hemoglobin A1C 6.2 % Hgb (4.8-6.0); LDL Cholesterol,Calculated 68 mg/dL (0-130); Magnesium 2.2 mg/dL (1.6-2.6); Osmolality,Calculated 293 (275-295); Phosphorous 2.8 mg/dL (2.4-5.1); Potassium 4.5 mMol/L (3.4-5.1); Sodium 143 mMol/L (136-145); Thyroid Stimulating Hormone 0.20 uIU/mL (0.55-4.78); Total Protein 5.0 gm/dL (5.7-8.2); Triglycerides 98 mg/dL (30-150); eGFR 43 See Note
[2025-02-01 07:51] LABS: Free T4 (Free Thyroxine) 0.97 ng/dL (0.89-1.76)
[2025-02-01] MEDS: APIXABAN 2.5 MG TABLET 5 MG PO ×2 (08:19→20:31)
[2025-02-01] MEDS: FUROSEMIDE INJ 10 MG/ML 4ML VIAL 40 MG IVP ×2 (08:20→12:45)
[2025-02-01] MEDS: cefTRIAXone/D5w 1gm IV premix 1 GM/50 ML BAG IV (08:21)
[2025-02-01] MEDS: AZITHROMYCIN INJ 500 MG in SODIUM CHLORIDE 0.9% 250 ML 250 ML 250 MG IV (08:59)
--- NOTE | 2025-02-01 10:32 | PC.DIETICIAN ---
Nutrition prescription Vital 1.2 at 20 ml/hr via OG tube by pump. Advance 10 ml every 8 hrs to goal rate of 50 ml/hr x 24 hrs. If no IV fluids, water flushes of 25 ml/hr (or per MD).
--- NOTE | 2025-02-01 11:09 | ESPR_ITS ---
<Statement entered by Trina Leo MD - 02/02/25 08:37> TOTAL CC TIME: 45 MIN I saw and evaluated the patient. I reviewed the resident?s note and agree with findings and plan as documented in the resident?s note. Upon my evaluation, this patient had a high probability of imminent or life- threatening deterioration due to acute on chronic hypoxic / hypercapnic resp failure which required my direct attention, intervention, and personal management. This time is exclusive of time spent on procedures, which are documented separately if performed. multifactorial resp failure - w/ CHF, pneumonia, COPD. cont current care wean fio2 not sbt candidate today cont steroids/nebs/abx <Statement entered by Skylar Sanches MD - 02/02/25 01:29> Patient was seen and examined by me personally. I have directly supervised and reviewed documentation by the team resident and agree with its findings with any exceptions or additional findings as below. Plan of care was discussed with the attending pet care assistant, Dr. Leo. Skylar Sanches, PGY-3 Documentation for date of: 02/01/25 Subjective Subjective Interval history: Ms. Fely Bland is a 59-year-old female with a past medical history significant for past substance abuse, bipolar disorder, A-fib on Eliquis, HFrEF, COPD, and active smoking. She was brought to the Emergency Room by ambulance due to shortness of breath. The patient reported to EMS a history of dyspnea for an indeterminate period that has recently worsened. She denied chest pain, nausea, vomiting, changes in bowel movements, or dysuria. Complete history unattainable due to patient's somnolent status. Interval history: 02/01/2025 The patient had no acute overnight events and remains under deep sedation. A recent chest x-ray shows new bilateral infiltrates. The patient tested positive for the flu and has been started on Tamiflu. According to her , the patient had been feeling unwell with general malaise for about a week. 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 Consider consulting addiction social worker. Furthermore, he noted that the patient is still smoking approximately two cigarettes a day, and had not taken any sleeping pills or illicit drugs, other than Tylenol. Patient uses home O2 with an unconfirmed amount. Exam Vital Signs Temp Pulse Resp BP Pulse Ox O2 Del Method O2 Flow Rate 97 F 84 20 84/67 L 97 Mechanical Ventilation 4 02/01/25 08:00 02/01/25 10:35 02/01/25 06:16 02/01/25 10:35 02/01/25 10:35 02/01/25 06:16 01/31/25 14:17 FiO2 75 02/01/25 10:35 Narrative Exam Gen: Under sedation. HEENT: Eyes swollen RYLEE, Some discharge appreciated RYLEE, EOMI, Pupils reactive RYLEE, not icteric. Dry mucous membranes. RESP: Reduced air entry bilaterally, inspiratory crackles with expiratory wheezes CVS: RRR, no murmurs. Bilat pedal +2 Abdomen: Soft, nondistended, nontender, No rebound tenderness. Bowel sounds present. MSK: No joint swelling, no redness, peripheral pulses presents Skin: No rashes, petechiae, lesions. Neuro: Under sedation. Objective Labs 02/01/25 04:43 02/01/25 04:43 Labs: Laboratory Results - last 24 hr 01/31/25 01/31/25 01/31/25 07:00 13:49 18:13 WBC RBC Hgb Hct MCV MCH MCHC RDW Std Deviation Plt Count Neut % (Auto) Lymph % (Auto) [place] % (Auto) Eos % (Auto) Baso % (Auto) Neut # (Auto) Lymph # (Auto) [place] # (Auto) Eos # (Auto) Baso # (Auto) Immature Gran # (Auto) Absolute Nucleated RBC Immature Gran % Nucleated RBC % Puncture Site Right Radial Right Radial ABG pH 7.13 L* 7.34 L D ABG pCO2 104 H* 63 H D ABG pO2 54 L* D 103 D ABG HCO3 35 H 34 H ABG O2 Saturation 83 L 99 H ABG Base Excess 3 6 H FiO2 100 90 Sodium Potassium Chloride Carbon Dioxide Anion Gap BUN Creatinine Estim Creat Clear Calc eGFR BUN/Creatinine Ratio Glucose Estimated Ave Glu mg/dL Hemoglobin A1c Calculated Osmolality Calcium Corrected Calcium Phosphorus Magnesium Total Bilirubin AST ALT Alkaline Phosphatase B-Natriuretic Peptide 560 H* Total Protein Albumin Globulin Albumin/Globulin Ratio Triglycerides Cholesterol LDL Cholesterol, Calc HDL Cholesterol Cholesterol/HDL Ratio TSH Free T4 01/31/25 02/01/25 02/01/25 20:33 04:34 04:43 WBC 6.7 RBC 4.74 Hgb 12.5 Hct 42.8 MCV 90 MCH 26.4 MCHC 29.2 L RDW Std Deviation 47.6 H Plt Count 112 L D Neut % (Auto) 85 H Lymph % (Auto) 11 [place] % (Auto) 4 Eos % (Auto) 0 Baso % (Auto) 0 Neut # (Auto) 5.7 Lymph # (Auto) 0.7 L [place] # (Auto) 0.2 Eos # (Auto) 0.0 Baso # (Auto) 0.0 Immature Gran # (Auto) 0.03 H Absolute Nucleated RBC 0.00 Immature Gran % 1 H Nucleated RBC % 0 Puncture Site Right Radial ABG pH 7.36 ABG pCO2 60 H ABG pO2 106 ABG HCO3 34 H ABG O2 Saturation 99 H ABG Base Excess 7 H FiO2 85 Sodium 143 143 Potassium 5.8 H D 4.5 D Chloride 103 103 Carbon Dioxide 31.9 H 31.8 H Anion Gap 8 8 BUN 16 23 Creatinine 1.5 H 1.4 H Estim Creat Clear Calc 44.4 L 51.5 L eGFR 40 L 43 L BUN/Creatinine Ratio 11 L 16 Glucose [address] Glu mg/dL 131 Hemoglobin A1c 6.2 H Calculated Osmolality 289 293 Calcium 10.7 H 9.6 Corrected Calcium 10.2 H Phosphorus 3.8 2.8 Magnesium 2.4 2.2 Total Bilirubin 0.7 AST 24 ALT 19 Alkaline Phosphatase 93 B-Natriuretic Peptide Total Protein 5.0 L Albumin 3.2 L D Globulin 1.8 L Albumin/Globulin Ratio 1.8 Triglycerides 98 Cholesterol 125 L LDL Cholesterol, Calc 68 HDL Cholesterol 37 L Cholesterol/HDL Ratio 3.4 L TSH 0.20 L Free T4 0.97 ABG Interpretation ABG results: 01/31/25 01/31/25 01/31/25 07:20 08:33 10:48 ABG pH 7.16 L* 7.12 L* 7.13 L* ABG pCO2 104 H* 114 H* D 107 H* ABG pO2 325 H 297 H D 109 H D ABG HCO3 37 H 37 H 35 H ABG O2 Saturation 101 H 101 H 98 ABG Base Excess 5 H 4 H 3 01/31/25 01/31/25 02/01/25 13:49 18:13 04:34 ABG pH 7.13 L* 7.34 L D 7.36 ABG pCO2 104 H* 63 H D 60 H ABG pO2 54 L* D 103 D 106 ABG HCO3 35 H 34 H 34 H ABG O2 Saturation 83 L 99 H 99 H ABG Base Excess 3 6 H 7 H Quality Measures Quality Measures none Assessment & Plan Assessment Current Active Medications: Generic Name Dose Route Start Last Admin Trade Name Freq PRN Reason Stop Dose Admin Acetaminophen 650 mg 01/31/25 12:25 Acetaminophen 325 Mg Tablet PO 03/02/25 12:24 Q4HR PRN PAIN SCALE 1-3 (mild Acetaminophen 650 mg 01/31/25 12:25 Acetaminophen Supp 650 Mg Supp HI 03/02/25 12:24 Q4HR PRN PAIN SCALE 1-3 (mild Albuterol/Ipratropium 3 ml 01/31/25 13:00 02/01/25 06:15 Albuterol/Ipratropium (Duoneb) Rt Kaitlynn 3 Ml Nebu INH 03/02/25 12:59 3 ml Q6HRRT ALIA Administration Apixaban 5 mg 02/01/25 09:00 02/01/25 08:19 Apixaban 2.5 Mg Tablet PO 03/03/25 08:59 5 mg BID ALIA Administration Furosemide 40 mg 02/01/25 09:00 02/01/25 08:20 Furosemide Inj 10 Mg/Ml 4ml Vial IVP 03/03/25 08:59 40 mg QDAY ALIA Administration Azithromycin 500 mg/ Sodium 250 mls @ 250 mls/hr 02/01/25 09:00 02/01/25 08:59 Chloride IV 02/08/25 08:59 250 mls/hr QDAY ALIA Administration Ceftriaxone Sodium/Dextrose 1 gm in 50 mls @ 100 mls/hr 01/31/25 12:42 02/01/25 08:21 Rocephin/D5w 1gm Iv Premix IV 02/07/25 12:41 100 mls/hr QDAY ALIA Administration Norepinephrine/Dextrose 8 mg in 250 mls @ 7.867 mls/hr 01/31/25 13:31 02/01/25 11:00 Levophed In D5w 8mg/250ml IV 03/02/25 13:30 0.05 mcg/kg/min .Q24H PRN 7.867 mls/hr PER PROTOCOL Titration Protocol 0.05 MCG/KG/MIN Fentanyl Citrate 2,500 mcg in 250 mls @ 2.5 mls/hr 01/31/25 13:47 02/01/25 11:00 Sublimaze Inj 2,500 Mcg/250 Ml Bag IV 02/05/25 13:46 125 mcg/hr .Q24H PRN 12.5 mls/hr PER PROTOCOL Titration Protocol 25 MCG/HR Propofol 1,000 mg in 100 mls @ 2.517 mls/hr 01/31/25 16:38 02/01/25 11:00 Diprivan Ivpb IV 03/02/25 16:37 15 mcg/kg/min .Q24H PRN 7.552 mls/hr PER PROTOCOL Titration Protocol 5 MCG/KG/MIN Midodrine 10 mg 01/31/25 14:00 02/01/25 05:20 Midodrine 5 Mg Tablet PO 03/02/25 13:59 10 mg TID ALIA Administration Oseltamivir Phosphate 75 mg 02/01/25 09:30 Oseltamivir 75 Mg Capsule PO 02/08/25 09:29 BID ALIA Pantoprazole Sodium 40 mg 01/31/25 12:30 02/01/25 08:20 Pantoprazole Inj 40 Mg Vial IVP 03/02/25 12:29 40 mg QDAY ALIA Administration Prednisone 20 mg 02/02/25 09:00 Prednisone 20 Mg Tablet PO 03/04/25 08:59 QDAY ALIA Plan Ms. Fely Bland is 59-year-old female with a history of past substance abuse, bipolar disorder, A-fib on Eliquis, COPD, HFrEF,and active smoking presented with worsening shortness of breath of an unknown duration. She was admitted to the ICU due to persistent respiratory acidosis, which did not improve with BiPAP, and required intubation and mechanical ventilation for airway protection. BULK PLANT OPERATOR: Patient is intubated for airway protection and sedated with fentanyl and propofol #Acute encephalopathy DDX: Hypercapnia, drug-induced, metabolic, infection DX: ABG, CXR, urine tox screen ABG showed PCO2 in the low 100s Urine toxicology negative but unsure if taken other drugs that are not detectable on current machine Chest x-ray has been clear, similar to baseline RX: ? Started on antibiotics empirically ? Follow-up on blood culture, sputum culture RRX: monitor for worsening clinical status CVS: #CHF exacerbation #Hx of HrEF Mild volume overload on examination, +2 bilat pedal edema Last ECHO 11/19 Estimtaed EF 40-45% BNP 560 RX: ?Echo pending ?IV Lasix 40 mg x 2 given today ?Restart GDMT when med reconciliation is completed RRX: Check responsiveness to Lasix with urine output #Hypotension Shock not suspected at this time Likely secondary to propofol Blood pressures since intubation have been 80-90s/50-60s RX: ?Levophed infusion ?Midodrine 10 mg 3 times daily RRX: Monitor blood pressure, once blood pressure more stable will wean off pressor. #Chronic A-fib, rate-controlled [id number]: 1 Rate: Controlled with metoprolol Rhythm: Irregular AC: Eliquis 5mg BID RX: ?Continue Eliquis 5 mg twice daily ?Will not start home metoprolol given low blood pressures and normal heart rate RRX: ?Monitor telemetry reading. RESP: #Acute on Chronic Hypoxic hypercapnic respiratory failure #Respiratory acidosis, resolved #History of COPD Multifactorial including flu pneumonia, CHF exacerbation, history of COPD, YASH, Obesity Hyperventilation syndrome ABG today showed pH 7.36, PCO2 60, PO2 106 On mechanical ventilation DX: ABG, CXR, ECHO RX: ?Patient on volume control currently, respiratory rate 20, tidal volume 350, PEEP 10, FiO2 45% ?Treat influenza ?Maintaining FiO2 88 to 92% given COPD history ?Switch to prednisone 20 mg daily starting tomorrow x4 days ?DuoNeb every 6 hours ?Aim for extubation tomorrow RRX: Monitor ABG in a.m. GI: No active issues. RENAL: #Mild Acute kidney injury Likely cardiorenal Cr 1.4 (baseline ~1.0) DX: CMP RX: - IV Lasix 40mg x 2 today - Continuing IV lasix RRX: check Cr tonight after patient recieved 80mg IV lasix today #Hykerkalemia, resolved K 5.8 -> 4.5 Tx: - IV Insulin 10u x1 - D50 push x1 - Kayexalate 30g x1 ENDO: #New diagnosis of type 2 diabetes A1c 6.2 Blood glucose 180 RX: ?Bedside glucose checks every 6 hours ?Order insulin sliding scale as needed #Subclinical hypothyroidism TSH 0.2 Free T40.97 RX: ?No intervention indicated at this time MSK: No active issues. ID: #Flu Pneumonia Chest x-ray today showed new bilat infiltrates Flu A positive Sputum gram stain: 3+ Gram Positive Cocci and 1+ Gram Positive Rods RX: ?Continue on IV ceftriaxone 1 g daily ?Continue on IV azithromycin 250 mg daily ?Follow sputum culture ?Follow-up blood culture Hospital Maintenance: Dispo: ICU DVT ppx: Apixaban 5 mg twice daily GI ppx: IV Protonix Diet: NPO Antimicrobials: Ceftriaxone and Azithromycin (01/31 - IV lines: PIV Code status: Full Code Case discussed with my attending Dr. Trina Leo, and senior resident Dr. Ashvin Sanches PGY-3 Francisco Willett MD PGY-1
[2025-02-01] MEDS: OSELTAMIVIR 75 MG CAPSULE PO ×2 (12:20→20:31)
[2025-02-01] MEDS: PROPOFOL 1,000 MG IVPB 1,000 MG/100 ML VIAL 5.035 MG IV (12:33)
[2025-02-01] MEDS: fentaNYL CIT INJ 50 mCg/ML AMP 2ML 25 MCG IVP (14:00)
--- NOTE | 2025-02-01 14:20 | PC.NURSE ---
Indwelling catheter removed @1150- pt with no urine output. Bladder scan performed at this time with a reading of 565cc. notified and new orders for straight cath; orders carried out.
--- NOTE | 2025-02-01 14:41 | PC.SS ---
SS attempted phone call with patient's life partner, Richie Lin [phone]. Massage stated service not available. SS unable to complete assessment, will reattempt at later date.
[2025-02-01] MEDS: Norepinephrine/D5W 8mg/250ml 8 MG/250 ML BAG 7.867 MG IV (15:55)
--- NOTE | 2025-02-01 16:22 | PC.SS ---
COMPUTER CONSOLE OPERATOR attempted phone call with patient's life partner, Richie Lin [phone]. No response. COMPUTER CONSOLE OPERATOR unable to leave voicemail.
--- NOTE | 2025-02-01 17:00 | PC.SS ---
Update: Patient remains intubated/sedated. Patient receiving pressor support. Patient receiving IV antibiotics. Patient is afebrile. OG tube in place. Feedings pending.
[2025-02-01] MEDS: PROPOFOL 1,000 MG IVPB 1,000 MG/100 ML VIAL 12.587 MG IV (20:00)
[2025-02-01 20:53] LABS: Albumin, Serum 3.6 gm/dL (3.4-4.8); Anion Gap 8 (7-16); BUN/Creatinine Ratio 20 Ratio (12-20); Blood Urea Nitrogen 30 mg/dL (9-23); Calcium 10.1 mg/dL (8.3-10.6); Calcium (Corrected) 10.4 mg/dL (8.5-10.1); Carbon Dioxide 32.6 mMol/L (20.0-31.0); Chloride 102 mMol/L (98-107); Creatinine (Component) 1.5 mg/dL (0.6-1.3); Estimated Creatinine Clearance 48.0 mL/min (>60); Glucose 149 mg/dL (74-106); Osmolality,Calculated 294 (275-295); Phosphorous 3.9 mg/dL (2.4-5.1); Potassium 4.2 mMol/L (3.4-5.1); Sodium 143 mMol/L (136-145); eGFR 40 See Note
[2025-02-02] VITALS (73 sets, daily range): BP systolic 80–137; BP diastolic 40–95; PULSE 76–99; RESP 8–24; TEMP 36.2–36.8; O2SAT 86–100
[2025-02-02] MEDS: ALBUTEROL/IPRATROPIUM (Duoneb) RT SOL 3 ML NEBU INH ×4 (00:18→18:04)
[2025-02-02] MEDS: PROPOFOL 1,000 MG IVPB 1,000 MG/100 ML VIAL 15.105 MG IV (03:27)
[2025-02-02 04:50] LABS: Base Excess 9 (-3-3); HCO3 36 mEq/L (20-26); Inspired Oxygen, FIO2 35 %; O2 Saturation 94 % (91-98); PCO2 60 mmHg (32.0-48.0); PO2 67 mmHg (83-108); pH, Arterial 7.38 (7.35-7.45)
[2025-02-02 04:51] LABS: Allen Test Performed/OK; Puncture Site Right Radial
[2025-02-02 06:20] LABS: Basophils # (Auto) 0.0 Thou/mm3 (0.0-0.2); Basophils % (Auto) 0 % (0-2.5); Eosinophils # (Auto) 0.0 Thou/mm3 (0.0-0.5); Eosinophils % (Auto) 0 % (0-10); Hematocrit 43.4 % (36.0-46.0); Hemoglobin 13.0 g/dL (12.0-16.0); Immature Granulocytes Auto 0.06 Thou/mm3 (0.00-0.00); Lymphocytes # (Auto) 0.9 Thou/mm3 (1.0-4.8); Lymphocytes % (Auto) 6 % (10-50); Mean Corpuscular HGB Conc 30.0 g/dl (31.0-37.0); Mean Corpuscular Hemoglobin 26.7 pg (25.0-35.0); Mean Corpuscular Volume 89 fL (80-100); Monocytes # (Auto) 1.2 Thou/mm3 (0.0-0.8); Monocytes % (Auto) 8 % (0-12); Neutrophils # (Auto) 13.0 Thou/mm3 (1.8-7.7); Neutrophils % (Auto) 85 % (37-80); Nucleated Red Blood Cell # 0.00 Thou/mm3 (0.00-0.00); Nucleated Red Blood Cell % 0 /100 WBC (0); Platelet Count 128 Thou/mm3 (140-440); RDW Standard Deviation 47.2 fL (36.4-46.3); Red Blood Count 4.86 Miln/mm3 (4.00-5.20); White Blood Count 15.2 Thou/mm3 (3.6-11.0)
[2025-02-02] MEDS: MIDODRINE 5 MG TABLET 10 MG PO ×2 (06:34→21:46)
[2025-02-02 06:53] LABS: Alanine Aminotransferase 15 U/L (10-49); Albumin, Serum 3.3 gm/dL (3.4-4.8); Albumin/Globulin Ratio 1.8 (1.2-2.2); Alkaline Phosphatase 90 U/L (46-116); Anion Gap 11 (7-16); Aspartate Amino Transferase 19 U/L (0-34); BUN/Creatinine Ratio 16 Ratio (12-20); Bilirubin,Total 0.5 mg/dL (0.3-1.2); Blood Urea Nitrogen 23 mg/dL (9-23); Calcium 9.3 mg/dL (8.3-10.6); Calcium (Corrected) 9.9 mg/dL (8.5-10.1); Carbon Dioxide 31.8 mMol/L (20.0-31.0); Chloride 100 mMol/L (98-107); Creatinine (Component) 1.4 mg/dL (0.6-1.3); Estimated Creatinine Clearance 51.4 mL/min (>60); Globulin 1.8 gm/dL (2.3-3.5); Glucose 128 mg/dL (74-106); Magnesium 1.7 mg/dL (1.6-2.6); Osmolality,Calculated 290 (275-295); Phosphorous 3.6 mg/dL (2.4-5.1); Potassium 4.2 mMol/L (3.4-5.1); Sodium 143 mMol/L (136-145); Total Protein 5.1 gm/dL (5.7-8.2); eGFR 43 See Note
--- NOTE | 2025-02-02 07:00 | XR_ITS ---
Examination: AP chest single view Technique one AP portable semiupright chest single view Date and time: February 02, 2025 0750 hours INDICATIONS: Hypoxic respiratory failure today. FINDINGS: Opacity left base retrocardiac consistent with pneumonia Mild enlargement cardiac contour with prominent vascular congestion Endotracheal tube tip 27 mm above michelle. Orogastric tube in the stomach IMPRESSION: Mild heart failure. Pneumonia left base.
[2025-02-02] MEDS: DEXMEDETOMIDINE 400 MCG IVPB 400 MCG/100 ML BAG 5.075 MCG IV (07:56)
[2025-02-02] MEDS: PROPOFOL 1,000 MG IVPB 1,000 MG/100 ML VIAL 10.07 MG IV (08:00)
[2025-02-02] MEDS: fentaNYL 2,500 MCG/250 ML BAG 2,500 MCG/250 ML BAG 12.5 MCG IV (08:00)
[2025-02-02] MEDS: APIXABAN 2.5 MG TABLET 5 MG PO ×2 (08:19→21:45)
[2025-02-02] MEDS: FUROSEMIDE INJ 10 MG/ML 4ML VIAL 40 MG IVP ×2 (08:19→12:17)
[2025-02-02] MEDS: OSELTAMIVIR 75 MG CAPSULE PO ×2 (08:19→21:45)
[2025-02-02] MEDS: AZITHROMYCIN INJ 500 MG in SODIUM CHLORIDE 0.9% 250 ML 250 ML 250 MG IV (08:19)
[2025-02-02] MEDS: cefTRIAXone/D5w 1gm IV premix 1 GM/50 ML BAG IV (08:19)
[2025-02-02] MEDS: DOXYCYCLINE INJ 100 MG in SODIUM CHLORIDE 0.9% (POP) 100 ML IV ×2 (10:01→21:45)
[2025-02-02] MEDS: DEXMEDETOMIDINE 400 MCG IVPB 400 MCG/100 ML BAG 25.375 MCG IV (12:25)
[2025-02-02 12:51] LABS: Base Excess 8 (-3-3); HCO3 37 mEq/L (20-26); Inspired Oxygen, FIO2 40 %; O2 Saturation 94 % (91-98); PCO2 72 mmHg (32.0-48.0); PO2 74 mmHg (83-108); pH, Arterial 7.32 (7.35-7.45)
[2025-02-02 12:52] LABS: Allen Test Performed/OK; Puncture Site Left Radial
--- NOTE | 2025-02-02 14:56 | ESPR_ITS ---
<Statement entered by Trina Leo MD - 02/03/25 12:58> TOTAL TIME: 45MINUTES ON DIRECT MEDICAL CARE, MANAGEMENT - COORDINATION AND COUNSELING > 50% OF TOTAL TIME I saw and evaluated the patient. I reviewed the resident?s note and agree with findings and plan as documented in the resident?s note. Hypoxic and hypercapnic respiratory failure are improving, pneumonia is improving, mechanical ventilator dynamics are acceptable with plateau pressure and PEEP at goal. Patient was tolerating pressure support ventilation 10/5 well however she became quite delirious and severely agitated and acutely desaturated and therefore she was not extubated. Continue full care management of pneumonia and COPD as well as chronic medical conditions. Cultures remain negative, continue empiric antibiotics <Statement entered by Skylar Sanches MD - 02/03/25 07:14> Patient was seen and examined by me personally. I have directly supervised and reviewed documentation by the team resident and agree with its findings with any exceptions or additional findings as below. Plan of care was discussed with the attending manager regional sales, Dr. Leo. Skylar Sanches, PGY- Documentation for date of: 02/02/25 Subjective Subjective Interval history: Ms. Fely Bland is a 59-year-old female with a past medical history significant for past substance abuse, bipolar disorder, A-fib on Eliquis, HFrEF, COPD, and active smoking. She was brought to the Emergency Room by ambulance due to shortness of breath. The patient reported to EMS a history of dyspnea for an indeterminate period that has recently worsened. She denied chest pain, nausea, vomiting, changes in bowel movements, or dysuria. Complete history unattainable due to patient's somnolent status. Interval history: 02/01/2025 The patient had no acute overnight events and remains under deep sedation. A recent chest x-ray shows new bilateral infiltrates. The patient tested positive for the flu and has been started on Tamiflu. According to her , the patient had been feeling unwell with general malaise for about a week. He also disclosed that she saw her home health billing specialist two weeks ago but was unable to fill her heart failure medications due to outstanding balances and has not been taking them. Consider consulting director of social media marketing. Furthermore, he noted that the patient is still smoking approximately two cigarettes a day, and had not taken any sleeping pills or illicit drugs, other than Tylenol. Patient uses home O2 with an unconfirmed amount. 02/02/2025 No acute overnight events. The patient has been transitioned from volume- controlled ventilation to pressure support ventilation. However, the patient is not yet a candidate for extubation due to hemodynamic instability and hypercapnia, as evidenced by ABG demonstrating CO2 retention. We will try again tomorrow. Exam Vital Signs Temp Pulse Resp BP Pulse Ox O2 Del Method O2 Flow Rate 97.8 F 94 21 H 110/94 H 92 L Mechanical Ventilation 4 02/02/25 12:00 02/02/25 14:00 02/02/25 13:39 02/02/25 14:00 02/02/25 14:00 02/02/25 12:00 01/31/25 14:17 FiO2 35 02/02/25 13:39 Narrative Exam HEENT: Eyes swollen RYLEE, Some discharge appreciated RYLEE, EOMI, Pupils reactive RYLEE, not icteric. Dry mucous membranes. RESP: Reduced air entry bilaterally, inspiratory crackles with expiratory wheezes CVS: RRR, no murmurs. Bilat pedal +2 Abdomen: Soft, nondistended, nontender, No rebound tenderness. Bowel sounds present. MSK: No joint swelling, no redness, peripheral pulses presents Skin: No rashes, petechiae, lesions. Neuro: Under sedation. Objective Labs 02/02/25 05:12 02/02/25 05:12 Labs: Laboratory Results - last 24 hr 02/01/25 02/02/25 02/02/25 19:48 04:38 05:12 WBC 15.2 H RBC 4.86 Hgb 13.0 Hct 43.4 MCV 89 MCH 26.7 MCHC 30.0 L RDW Std Deviation 47.2 H Plt Count 128 L Neut % (Auto) 85 H Lymph % (Auto) 6 L Lanier % (Auto) 8 Eos % (Auto) 0 Baso % (Auto) 0 Neut # (Auto) 13.0 H Lymph # (Auto) 0.9 L Lanier # (Auto) 1.2 H Eos # (Auto) 0.0 Baso # (Auto) 0.0 Immature Gran # (Auto) 0.06 H Absolute Nucleated RBC 0.00 Immature Gran % 0 Nucleated RBC % 0 Puncture Site Right Radial ABG pH 7.38 ABG pCO2 60 H ABG pO2 67 L D ABG HCO3 36 H ABG O2 Saturation 94 ABG Base Excess 9 H FiO2 35 Sodium 143 143 Potassium 4.2 4.2 Chloride 102 100 Carbon Dioxide 32.6 H 31.8 H Anion Gap 8 11 BUN 30 H 23 Creatinine 1.5 H 1.4 H Estim Creat Clear Calc 48.0 L 51.4 L eGFR 40 L 43 L BUN/Creatinine Ratio 20 16 Glucose 149 H 128 H Calculated Osmolality 294 290 Calcium 10.1 9.3 Corrected Calcium 10.4 H 9.9 Phosphorus 3.9 3.6 Magnesium 1.7 Total Bilirubin 0.5 AST 19 ALT 15 Alkaline Phosphatase 90 Total Protein 5.1 L Albumin 3.6 3.3 L Globulin 1.8 L Albumin/Globulin Ratio 1.8 02/02/25 12:42 WBC RBC Hgb Hct MCV MCH MCHC RDW Std Deviation Plt Count Neut % (Auto) Lymph % (Auto) Lanier % (Auto) Eos % (Auto) Baso % (Auto) Neut # (Auto) Lymph # (Auto) Lanier # (Auto) Eos # (Auto) Baso # (Auto) Immature Gran # (Auto) Absolute Nucleated RBC Immature Gran % Nucleated RBC % Puncture Site Left Radial ABG pH 7.32 L ABG pCO2 72 H* D ABG pO2 74 L ABG HCO3 37 H ABG O2 Saturation 94 ABG Base Excess 8 H FiO2 40 Sodium Potassium Chloride Carbon Dioxide Anion Gap BUN Creatinine Estim Creat Clear Calc eGFR BUN/Creatinine Ratio Glucose Calculated Osmolality Calcium Corrected Calcium Phosphorus Magnesium Total Bilirubin AST ALT Alkaline Phosphatase Total Protein Albumin Globulin Albumin/Globulin Ratio ABG Interpretation ABG results: 01/31/25 01/31/25 01/31/25 07:20 08:33 10:48 ABG pH 7.16 L* 7.12 L* 7.13 L* ABG pCO2 104 H* 114 H* D 107 H* ABG pO2 325 H 297 H D 109 H D ABG HCO3 37 H 37 H 35 H ABG O2 Saturation 101 H 101 H 98 ABG Base Excess 5 H 4 H 3 01/31/25 01/31/25 02/01/25 13:49 18:13 04:34 ABG pH 7.13 L* 7.34 L D 7.36 ABG pCO2 104 H* 63 H D 60 H ABG pO2 54 L* D 103 D 106 ABG HCO3 35 H 34 H 34 H ABG O2 Saturation 83 L 99 H 99 H ABG Base Excess 3 6 H 7 H 02/02/25 02/02/25 04:38 12:42 ABG pH 7.38 7.32 L ABG pCO2 60 H 72 H* D ABG pO2 67 L D 74 L ABG HCO3 36 H 37 H ABG O2 Saturation 94 94 ABG Base Excess 9 H 8 H Quality Measures Quality Measures none Assessment & Plan Assessment Current Active Medications: Generic Name Dose Route Start Last Admin Trade Name Freq PRN Reason Stop Dose Admin Acetaminophen 650 mg 01/31/25 12:25 Acetaminophen 325 Mg Tablet PO 03/02/25 12:24 Q4HR PRN PAIN SCALE 1-3 (mild Acetaminophen 650 mg 01/31/25 12:25 Acetaminophen Supp 650 Mg Supp GA 03/02/25 12:24 Q4HR PRN PAIN SCALE 1-3 (mild Albuterol/Ipratropium 3 ml 01/31/25 13:00 02/02/25 13:37 Albuterol/Ipratropium (Duoneb) Rt Kaitlynn 3 Ml Nebu INH 03/02/25 12:59 3 ml Q6HRRT ALIA Administration Apixaban 5 mg 02/01/25 09:00 02/02/25 08:19 Apixaban 2.5 Mg Tablet PO 03/03/25 08:59 5 mg BID ALIA Administration Furosemide 40 mg 02/01/25 09:00 02/02/25 08:19 Furosemide Inj 10 Mg/Ml 4ml Vial IVP 03/03/25 08:59 40 mg QDAY ALIA Administration Ceftriaxone Sodium/Dextrose 1 gm in 50 mls @ 100 mls/hr 01/31/25 12:42 02/02/25 08:19 Rocephin/D5w 1gm Iv Premix IV 02/07/25 12:41 100 mls/hr QDAY ALIA Administration Norepinephrine/Dextrose 8 mg in 250 mls @ 7.867 mls/hr 01/31/25 13:31 02/02/25 11:00 Levophed In D5w 8mg/250ml IV 03/02/25 13:30 0 mcg/kg/min .Q24H PRN 0 mls/hr PER PROTOCOL Titration Protocol 0.05 MCG/KG/MIN Dexmedetomidine/Sodium Chloride 400 mcg in 100 mls @ 5.075 mls/hr 02/02/25 07:52 02/02/25 14:00 Precedex Ivpb IV 03/04/25 07:51 1.4 mcg/kg/hr .[id number] PRN 35.525 mls/hr Per PROTOCOL Titration Protocol 0.2 MCG/KG/HR Fentanyl Citrate 2,500 mcg in 250 mls @ 2.5 mls/hr 02/02/25 07:53 02/02/25 10:30 Sublimaze Inj 2,500 Mcg/250 Ml Bag IV 02/05/25 13:46 0 mcg/hr .Q24H PRN 0 mls/hr PER PROTOCOL Titration Protocol 25 MCG/HR Propofol 1,000 mg in 100 mls @ 2.517 mls/hr 02/02/25 07:53 02/02/25 10:30 Diprivan Ivpb IV 03/02/25 16:37 0 mcg/kg/min .Q24H PRN 0 mls/hr PER PROTOCOL Titration Protocol 5 MCG/KG/MIN Doxycycline Hyclate 100 mg/ 100 mls @ 100 mls/hr 02/02/25 09:15 02/02/25 10:01 Sodium Chloride IV 02/09/25 09:14 100 mls/hr BID ALIA Administration Midodrine 10 mg 02/02/25 14:25 Midodrine 5 Mg Tablet PO 03/02/25 13:59 TID ALIA Mupirocin 0 gm 02/02/25 14:00 Mupirocin Oint 2% 15 Gm Tube TOP 02/09/25 13:59 TID ALIA Oseltamivir Phosphate 75 mg 02/01/25 09:30 02/02/25 08:19 Oseltamivir 75 Mg Capsule PO 02/08/25 09:29 75 mg BID ALIA Administration Pantoprazole Sodium 40 mg 01/31/25 12:30 02/02/25 08:19 Pantoprazole Inj 40 Mg Vial IVP 03/02/25 12:29 40 mg QDAY ALIA Administration Prednisone 20 mg 02/02/25 09:00 02/02/25 08:19 Prednisone 20 Mg Tablet PO 02/06/25 09:00 20 mg QDAY ALIA Administration Plan Summary: Ms. Fely Bland is 59-year-old female with a history of past substance abuse, bipolar disorder, A-fib on Eliquis, COPD, HFrEF, and active smoking presented with worsening shortness of breath of an unknown duration. She was admitted to the ICU due to persistent respiratory acidosis, which did not improve with BiPAP, and required intubation and mechanical ventilation. 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 Continue antibiotics empirically ? Follow-up on blood culture, sputum culture RRX: monitor for worsening clinical status CVS: #CHF exacerbation #Hx of HrEF Mild volume overload on examination, +2 bilat pedal edema Last ECHO 11/19 Estimtaed EF 40-45% BNP 560 RX: ?Echo pending ?IV Lasix 40 mg x 2 given today ?Restart GDMT when med reconciliation is completed RRX: Check responsiveness to Lasix with urine output #Hypotension, improved Shock not suspected at this time Likely secondary to propofol RX: ?OFF Levophed infusion ?Midodrine 10 mg 3 times daily with BP parameters set #Chronic A-fib, rate-controlled [id number]: 1 Rate: Controlled with metoprolol Rhythm: Irregular AC: Eliquis 5mg BID RX: ?Continue Eliquis 5 mg twice daily ?Will not start home metoprolol given low blood pressures and normal heart rate RRX: ?Monitor telemetry reading. RESP: #Acute on Chronic Hypoxic hypercapnic respiratory failure #Respiratory acidosis, resolved #History of COPD Multifactorial including flu pneumonia, CHF exacerbation, history of COPD, YASH, Obesity Hypoventilation syndrome ABG today showed pH 7.32, PCO2 72, PO2 74 DX: ABG, CXR, ECHO RX: ?On mechanical ventilation on Pressure Support PS 10, PEEP 8, FiO2 35% ?Treat influenza ?Maintaining FiO2 88 to 92% given COPD history ?ECHO Pending ?On prednisone 20 mg daily until 02/06 (total 5 days) ?DuoNeb every 6 hours ?Aim for extubation tomorrow if more hemodynamically stable RRX: Monitor ABG in a.m. GI: No active issues. RENAL: #Mild Acute kidney injury Likely cardiorenal vs inadequate diuresis vs new baseline Cr 1.4 (prev baseline ~1.0) DX: CMP RX: - IV Lasix 40mg x 2 today - Continuing IV lasix RRX: F/U Cr #Hykerkalemia, resolved ENDO: #New diagnosis of type 2 diabetes A1c 6.2 Blood glucose 128 RX: ?Bedside glucose checks every 6 hours as NPO ?Order insulin sliding scale as needed #Subclinical hypothyroidism TSH 0.2 Free T40.97 RX: ?No intervention indicated at this time MSK: No active issues. Hem/Onc: Leukocytosis DDX: Steroid-induced vs infection No fever Flu positive On Prednisone 20mg qday RX: - Continue Abx RRX: Monitor for fever, worsening leukocytosis ID: #Flu Pneumonia Chest x-ray today showed pneumonia left base Flu A positive Sputum gram stain: 3+ Gram Positive Cocci and 1+ Gram Positive Rods RX: ?Continue on IV ceftriaxone 1 g daily ?Continue on IV azithromycin 250 mg daily ?Follow sputum culture ?Follow-up blood culture #MRSA, nares RX: -Mupirocin TID Hospital Maintenance: Dispo: ICU DVT ppx: Apixaban 5 mg twice daily GI ppx: IV Protonix Diet: NPO Antimicrobials: Ceftriaxone and Azithromycin (01/31 - IV lines: PIV Code status: Full Code Case discussed with my attending Dr. Trina Leo, and senior resident Dr. Ashvin Sanches PGY-3 Francisco Willett MD PGY-1
--- NOTE | 2025-02-02 15:31 | PC.SS ---
SS follow up note; SS attempted phone call with patient's life partner, Richie Lin [phone]. Unable to leave voicemail, due to voicemail not set up. SS unable to complete assessment, will reattempt at later date.
[2025-02-02] MEDS: fentaNYL 2,500 MCG/250 ML BAG 2,500 MCG/250 ML BAG IV (15:43)
[2025-02-02] MEDS: DEXMEDETOMIDINE 400 MCG IVPB 400 MCG/100 ML BAG 35.525 MCG IV ×3 (15:45→21:38)
--- NOTE | 2025-02-02 16:47 | PC.SS ---
CLINICAL CARE MANAGER conducted bedside contact with the patient conduct initial assessment and to discuss discharge planning.? At bedside with patient was partner, Richie Lin .? Information was obtained from patient?s partner.? Patient possesses history of substance abuse, bipolar disorder, and COPD. ?Patient brought to the Emergency Room by ambulance due to shortness of breath.? Patient currently admitted to ICU.? Patient currently intubated/sedated.? Patient resides at home with partner.? Patient does not utilize DME to assist with ambulation.? Patient does possess home oxygen and C-PAP machine.? Patient?s surrogate medical decision maker is partner, Richie Lin.? Patient utilizes [facility] for medication services.? Patient?s partner reports that patient possesses a sister in [facility].? No contact information for sister provided.? director of professional services will discuss discharge needs at an appropriate future time.? No further intervention required at this time, social worker aide will be available to address any further concerns.? Next of Kin: Richie Lin D/C Plan: Pending
[2025-02-02] MEDS: Magnesium Sulfate 2 GM Ivpb 2 GM/50 ML BAG IV (17:38)
[2025-02-03] VITALS (43 sets, daily range): BP systolic 112–155; BP diastolic 77–107; PULSE 78–143; RESP 10–31; TEMP 36.2–37; O2SAT 89–99
[2025-02-03] MEDS: DEXMEDETOMIDINE 400 MCG IVPB 400 MCG/100 ML BAG 35.525 MCG IV ×5 (00:32→12:17)
[2025-02-03] MEDS: ALBUTEROL/IPRATROPIUM (Duoneb) RT SOL 3 ML NEBU INH ×6 (01:02→18:24)
[2025-02-03] MEDS: PROPOFOL 1,000 MG IVPB 1,000 MG/100 ML VIAL 7.552 MG IV (02:10)
[2025-02-03] MEDS: MUPIROCIN OINT 2% 15 GM TUBE TOP ×3 (04:30→21:59)
[2025-02-03 04:50] LABS: Base Excess 14 (-3-3); HCO3 40 mEq/L (20-26); Inspired Oxygen, FIO2 21 %; O2 Saturation 92 % (91-98); PCO2 61 mmHg (32.0-48.0); PO2 60 mmHg (83-108); pH, Arterial 7.43 (7.35-7.45)
[2025-02-03 04:51] LABS: Allen Test Not Performed; Puncture Site Left Radial
[2025-02-03 05:50] LABS: Basophils # (Auto) 0.0 Thou/mm3 (0.0-0.2); Basophils % (Auto) 0 % (0-2.5); Eosinophils # (Auto) 0.0 Thou/mm3 (0.0-0.5); Eosinophils % (Auto) 0 % (0-10); Hematocrit 41.5 % (36.0-46.0); Hemoglobin 12.5 g/dL (12.0-16.0); Immature Granulocytes Auto 0.02 Thou/mm3 (0.00-0.00); Lymphocytes # (Auto) 0.8 Thou/mm3 (1.0-4.8); Lymphocytes % (Auto) 13 % (10-50); Mean Corpuscular HGB Conc 30.1 g/dl (31.0-37.0); Mean Corpuscular Hemoglobin 26.8 pg (25.0-35.0); Mean Corpuscular Volume 89 fL (80-100); Monocytes # (Auto) 0.6 Thou/mm3 (0.0-0.8); Monocytes % (Auto) 9 % (0-12); Neutrophils # (Auto) 4.8 Thou/mm3 (1.8-7.7); Neutrophils % (Auto) 78 % (37-80); Nucleated Red Blood Cell # 0.00 Thou/mm3 (0.00-0.00); Nucleated Red Blood Cell % 0 /100 WBC (0); RDW Standard Deviation 46.3 fL (36.4-46.3); Red Blood Count 4.67 Miln/mm3 (4.00-5.20); White Blood Count 6.1 Thou/mm3 (3.6-11.0)
[2025-02-03 05:56] LABS: Platelet Count 76 Thou/mm3 (140-440)
[2025-02-03 06:04] LABS: Alanine Aminotransferase 13 U/L (10-49); Albumin, Serum 3.3 gm/dL (3.4-4.8); Albumin/Globulin Ratio 1.8 (1.2-2.2); Alkaline Phosphatase 84 U/L (46-116); Anion Gap 7 (7-16); Aspartate Amino Transferase 16 U/L (0-34); BUN/Creatinine Ratio 25 Ratio (12-20); Bilirubin,Total 0.6 mg/dL (0.3-1.2); Blood Urea Nitrogen 28 mg/dL (9-23); Calcium 9.0 mg/dL (8.3-10.6); Calcium (Corrected) 9.6 mg/dL (8.5-10.1); Carbon Dioxide 36.5 mMol/L (20.0-31.0); Chloride 101 mMol/L (98-107); Creatinine (Component) 1.1 mg/dL (0.6-1.3); Estimated Creatinine Clearance 65.0 mL/min (>60); Globulin 1.8 gm/dL (2.3-3.5); Glucose 114 mg/dL (74-106); Magnesium 2.0 mg/dL (1.6-2.6); Osmolality,Calculated 293 (275-295); Phosphorous 3.0 mg/dL (2.4-5.1); Potassium 4.0 mMol/L (3.4-5.1); Sodium 144 mMol/L (136-145); Total Protein 5.1 gm/dL (5.7-8.2); eGFR 58 See Note
[2025-02-03] MEDS: MIDODRINE 5 MG TABLET 10 MG PO (06:31)
--- NOTE | 2025-02-03 07:41 | XR_ITS ---
Examination: AP chest single view TECHNIQUE: AP portable semiupright chest single view Date and time: February 13, 2025 0811 hours Comparison February 02, 2025 INDICATIONS: Hypoxic respiratory failure, heart failure pneumonia on earlier chest imaging. FINDINGS: Mild enlargement cardiac contour Moderate vascular congestion. Bibasilar pneumonia. Endotracheal tube tip 3.1 cm above michelle. The orogastric tube is in the stomach, the tip is below the level of the film IMPRESSION: Moderate vascular congestion Significant bibasilar pneumonia
[2025-02-03 08:49] LABS: Slide Review Platelets confirmed
[2025-02-03] MEDS: HALOPERIDOL LACT INJ 5 MG/ML VIAL 2.5 MG IV ×2 (09:00→10:39)
[2025-02-03] MEDS: DOXYCYCLINE INJ 100 MG in SODIUM CHLORIDE 0.9% (POP) 100 ML IV ×2 (09:30→20:39)
[2025-02-03] MEDS: cefTRIAXone/D5w 1gm IV premix 1 GM/50 ML BAG IV (09:31)
[2025-02-03] MEDS: FUROSEMIDE INJ 10 MG/ML 4ML VIAL 40 MG IVP (09:31)
[2025-02-03] MEDS: fentaNYL CIT INJ 50 mCg/ML AMP 2ML 25 MCG IVP (10:48)
[2025-02-03 11:03] LABS: Allen Test Performed/OK; Base Excess 13 (-3-3); HCO3 40 mEq/L (20-26); Inspired Oxygen, FIO2 35 %; O2 Saturation 94 % (91-98); PCO2 59 mmHg (32.0-48.0); PO2 65 mmHg (83-108); Puncture Site Left Radial; pH, Arterial 7.44 (7.35-7.45)
[2025-02-03] MEDS: ENOXAPARIN SOD INJ 100 MG/ML SYRINGE SC ×2 (12:36→20:52)
[2025-02-03] MEDS: OLANZapine INJ 10 MG, Sterile Water 2.1 ML IM ×2 (12:39→21:06)
--- NOTE | 2025-02-03 14:27 | ESPR_ITS ---
<Statement entered by Trina Leo MD - 02/04/25 13:08> TOTAL CC TIME:45 MIN I saw and evaluated the patient. I reviewed the resident?s note and agree with findings and plan as documented in the resident?s note. Upon my evaluation, this patient had a high probability of imminent or life- threatening deterioration due to acute on chronic hypoxic hypercapnic respiratory failure, pneumonia, delirium which required my direct attention, intervention, and personal management. This time is exclusive of time spent on procedures, which are documented separately if performed. Extubated to noninvasive positive pressure ventilation complicated by severe delirium requiring antipsychotics and fentanyl drip. Serial ABGs reveal intact ventilation. Continue noninvasive positive pressure ventilation, antibiotics, steroids nebulized short acting bronchodilators Documentation for date of: 02/03/25 Subjective Subjective Interval history: Ms. Fely Bland is a 59-year-old female with a past medical history significant for past substance abuse, bipolar disorder, A-fib on Eliquis, HFrEF, COPD, and active smoking. She was brought to the Emergency Room by ambulance due to shortness of breath. The patient reported to EMS a history of dyspnea for an indeterminate period that has recently worsened. She denied chest pain, nausea, vomiting, changes in bowel movements, or dysuria. Complete history unattainable due to patient's somnolent status. Interval history: 02/01/2025 The patient had no acute overnight events and remains under deep sedation. A recent chest x-ray shows new bilateral infiltrates. The patient tested positive for the flu and has been started on Tamiflu. According to her , the patient had been feeling unwell with general malaise for about a week. 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 Consider consulting social director. Furthermore, he noted that the patient is still smoking approximately two cigarettes a day, and had not taken any sleeping pills or illicit drugs, other than Tylenol. Patient uses home O2 with an unconfirmed amount. 02/02/2025 No acute overnight events. The patient has been transitioned from volume- controlled ventilation to pressure support ventilation. However, the patient is not yet a candidate for extubation due to hemodynamic instability and hypercapnia, as evidenced by ABG demonstrating CO2 retention. We will try again tomorrow. 02/03/2025 No acute overnight events. Patient was on pressure support FiO2 30% and successfully was extubated to BiPAP. She is able to follow commands and answer yes and no questions, yet continues to be agitated at times therefore she is on restraints, as well as titratable Precedex, and fentanyl drip. Hold for MAP <65, RR <14, or unable to arouse. Patient was titrated off fentanyl drip, however had several episodes of agitation and confusion requiring haldol pushes, which only lasted about 30 minutes. Patient was unable to properly converse and sounded confused. She was given about 4 hours of break off BiPAP on OxyMask. BiPAP to be resumed all night. ABG scheduled q6h. Patient continues to have expiratory wheezing on examination. Prednisone converted to Solu-Medrol again given patient unable to swallow yet. Creatinine showed improvement finally today at 1.1. Will continue with Lasix 40 mg qday, patient continues to have good urine output with -4L in the past day. Exam Vital Signs Temp Pulse Resp BP Pulse Ox O2 Del Method O2 Flow Rate 97.8 F 98 17 119/88 H 95 Mechanical Ventilation 6 02/03/25 12:00 02/03/25 14:19 02/03/25 14:19 02/03/25 14:00 02/03/25 14:19 02/03/25 04:01 02/03/25 08:46 FiO2 40 02/03/25 14:19 Narrative Exam HEENT: Eyes swollen RYLEE, Some discharge appreciated RYLEE, EOMI, Pupils reactive RYLEE, not icteric. Dry mucous membranes. RESP: Reduced air entry bilaterally, inspiratory crackles with expiratory wheezes CVS: RRR, no murmurs. Bilat pedal +2 Abdomen: Soft, nondistended, nontender, No rebound tenderness. Bowel sounds present. MSK: No joint swelling, no redness, peripheral pulses presents Skin: No rashes, petechiae, lesions. Neuro: Under sedation. Objective Labs 02/04/25 04:37 02/04/25 04:37 Labs: Laboratory Results - last 24 hr 02/03/25 02/03/25 02/03/25 04:25 04:37 10:55 WBC 6.1 RBC 4.67 Hgb 12.5 Hct 41.5 MCV 89 MCH 26.8 MCHC 30.1 L RDW Std Deviation 46.3 Plt Count 76 L D Neut % (Auto) 78 Lymph % (Auto) 13 Finney % (Auto) 9 Eos % (Auto) 0 Baso % (Auto) 0 Neut # (Auto) 4.8 Lymph # (Auto) 0.8 L Finney # (Auto) 0.6 Eos # (Auto) 0.0 Baso # (Auto) 0.0 Immature Gran # (Auto) 0.02 H Absolute Nucleated RBC 0.00 Immature Gran % 0 Nucleated RBC % 0 Puncture Site Left Radial Left Radial ABG pH 7.43 D 7.44 ABG pCO2 61 H D 59 H ABG pO2 60 L 65 L ABG HCO3 40 H 40 H ABG O2 Saturation 92 94 ABG Base Excess 14 H 13 H FiO2 21 35 Sodium 144 Potassium 4.0 Chloride 101 Carbon Dioxide 36.5 H Anion Gap 7 BUN 28 H Creatinine 1.1 Estim Creat Clear Calc 65.0 eGFR 58 L BUN/Creatinine Ratio 25 H Glucose 114 H Calculated Osmolality 293 Calcium 9.0 Corrected Calcium 9.6 Phosphorus 3.0 Magnesium 2.0 Total Bilirubin 0.6 AST 16 ALT 13 Alkaline Phosphatase 84 Total Protein 5.1 L Albumin 3.3 L Globulin 1.8 L Albumin/Globulin Ratio 1.8 Misc Test Result Platelets confirmed ABG Interpretation ABG results: 01/31/25 01/31/25 01/31/25 07:20 08:33 10:48 ABG pH 7.16 L* 7.12 L* 7.13 L* ABG pCO2 104 H* 114 H* D 107 H* ABG pO2 325 H 297 H D 109 H D ABG HCO3 37 H 37 H 35 H ABG O2 Saturation 101 H 101 H 98 ABG Base Excess 5 H 4 H 3 01/31/25 01/31/25 02/01/25 13:49 18:13 04:34 ABG pH 7.13 L* 7.34 L D 7.36 ABG pCO2 104 H* 63 H D 60 H ABG pO2 54 L* D 103 D 106 ABG HCO3 35 H 34 H 34 H ABG O2 Saturation 83 L 99 H 99 H ABG Base Excess 3 6 H 7 H 02/02/25 02/02/25 02/03/25 04:38 12:42 04:25 ABG pH 7.38 7.32 L 7.43 D ABG pCO2 60 H 72 H* D 61 H D ABG pO2 67 L D 74 L 60 L ABG HCO3 36 H 37 H 40 H ABG O2 Saturation 94 94 92 ABG Base Excess 9 H 8 H 14 H 02/03/25 10:55 ABG pH 7.44 ABG pCO2 59 H ABG pO2 65 L ABG HCO3 40 H ABG O2 Saturation 94 ABG Base Excess 13 H Quality Measures Quality Measures none Assessment & Plan Assessment Current Active Medications: Generic Name Dose Route Start Last Admin Trade Name Freq PRN Reason Stop Dose Admin Acetaminophen 650 mg 01/31/25 12:25 Acetaminophen 325 Mg Tablet PO 03/02/25 12:24 Q4HR PRN PAIN SCALE 1-3 (mild Acetaminophen 650 mg 01/31/25 12:25 Acetaminophen Supp 650 Mg Supp PA 03/02/25 12:24 Q4HR PRN PAIN SCALE 1-3 (mild Albuterol/Ipratropium 3 ml 01/31/25 13:00 02/03/25 13:05 Albuterol/Ipratropium (Duoneb) Rt Kaitlynn 3 Ml Nebu INH 03/02/25 12:59 3 ml Q6HRRT ALIA Administration Olanzapine 10 mg/ Sterile 0 mg 02/03/25 11:12 02/03/25 12:39 Water 2.1 ml IM 03/05/25 11:11 10 dose QDAY ALIA Administration Enoxaparin Sodium 100 mg 02/03/25 10:45 02/03/25 12:36 Enoxaparin Sod Inj 100 Mg/Ml Syringe 1 mg/kg (100 mg) 02/17/25 10:44 100 mg SC Administration BID ALIA Furosemide 40 mg 02/01/25 09:00 02/03/25 09:31 Furosemide Inj 10 Mg/Ml 4ml Vial IVP 03/03/25 08:59 40 mg QDAY ALIA Administration Ceftriaxone Sodium/Dextrose 1 gm in 50 mls @ 100 mls/hr 01/31/25 12:42 02/03/25 09:31 Rocephin/D5w 1gm Iv Premix IV 02/07/25 12:41 100 mls/hr QDAY ALIA Administration Dexmedetomidine/Sodium Chloride 400 mcg in 100 mls @ 5.075 mls/hr 02/02/25 07:52 02/03/25 12:17 Precedex Ivpb IV 03/04/25 07:51 1.4 mcg/kg/hr .[id number] PRN 35.525 mls/hr Per PROTOCOL Administration Protocol 0.2 MCG/KG/HR Doxycycline Hyclate 100 mg/ 100 mls @ 100 mls/hr 02/02/25 09:15 02/03/25 09:30 Sodium Chloride IV 02/09/25 09:14 100 mls/hr BID ALIA Administration Fentanyl Citrate 2,500 mcg in 250 mls @ 2.5 mls/hr 02/03/25 11:37 Sublimaze Inj 2,500 Mcg/250 Ml Bag IV 02/05/25 13:46 .Q24H PRN PER PROTOCOL Protocol 25 MCG/HR Methylprednisolone Sodium Succinate 40 mg 02/03/25 21:00 Methylprednisolone Sod Succ 40 Mg Vial IVP 02/10/25 20:59 Q12HR ALIA Midodrine 10 mg 02/02/25 14:25 02/03/25 06:31 Midodrine 5 Mg Tablet PO 03/02/25 13:59 10 mg TID ALIA Administration Mupirocin 0 gm 02/02/25 14:00 02/03/25 06:38 Mupirocin Oint 2% 15 Gm Tube TOP 02/09/25 13:59 Not Given TID ALIA Oseltamivir Phosphate 75 mg 02/01/25 09:30 02/03/25 10:29 Oseltamivir 75 Mg Capsule PO 02/08/25 09:29 Not Given BID ALIA Pantoprazole Sodium 40 mg 01/31/25 12:30 02/03/25 09:31 Pantoprazole Inj 40 Mg Vial IVP 03/02/25 12:29 40 mg QDAY ALIA Administration Plan Summary: Ms. Fely Bland is 59-year-old female with a history of past substance abuse, bipolar disorder, A-fib on Eliquis, COPD, HFrEF, and active smoking presented with worsening shortness of breath of an unknown duration. She was admitted to the ICU due to persistent respiratory acidosis, which did not improve with BiPAP, and required intubation and mechanical ventilation. DROP CLIPPER: #Acute encephalopathy DDX: Hypercapnia, infection, metabolic DX: ABG, CXR, urine tox screen ABG showed PCO2 in the low 100s Urine toxicology negative but unsure if taken other drugs that are not detectable on current machine Chest x-ray has shows opacity left base consistent with pneumonia RX: ? Continue BiPAP all night ? ABG q6h ? Continue antibiotics empirically ? Follow-up on blood culture, sputum culture RRX: monitor for worsening clinical status #Agitation DDX: Hospital delirium, drug withdrawal DX: Patient has been able to follow commands and ask yes or no questions, but has been kicking, twisting, trying to take of the mask and get out of bed. Non- redirectable at times, even with at bedside. RX: ? Continue measures to prevent delirium, natural light, continue frequent re- orientation, family visitation ? Precedex drip ? Olanzipine 10 mg IM push as needed for severe agitation ? Fentanyl drip as needed, titratable by 25 mcg, stop if MAP <65, RR <14, or difficult to arouse ? Soft wrist restraints CVS: #CHF exacerbation #Hx of HrEF Mild volume overload on examination, +2 bilat pedal edema Last ECHO 11/19 Estimtaed EF 40-45% BNP 560 RX: ? Echo pending, REORDERED today ? Continue IV Lasix 40 mg qday ? Restart GDMT when appropriate RRX: Check responsiveness to Lasix with urine output #Hypotension, improved Shock not suspected at this time Likely secondary to propofol RX: ? OFF Levophed infusion ? Midodrine 10 mg 3 times daily with BP parameters set #Chronic A-fib, rate-controlled [id number]: 1 Rate: Controlled with metoprolol Rhythm: Irregular AC: Eliquis 5mg BID RX: ? Continue Eliquis 5 mg twice daily ? Will not start home metoprolol given low blood pressures and normal heart rate RRX: ?Monitor telemetry reading. RESP: #Acute on Chronic Hypoxic hypercapnic respiratory failure #Respiratory acidosis, resolved #History of COPD Multifactorial including flu pneumonia, CHF exacerbation, history of COPD, YASH, Obesity Hypoventilation syndrome ABG today showed pH 7.32, PCO2 72, PO2 74 DX: ABG, CXR, ECHO 02/03/2025 Extubated to BiPAP RX: ? Continue influenza treatment ? Maintaining FiO2 88 to 92% given COPD history ? ECHO Pending ? Converted prednisone 20 mg to methylprednisolone 40 mg q12h daily due to lack of PO ability until 02/06 (total 5 days) ? DuoNeb every 6 hours ? ABG q6h ? Continue BiPAP all night RRX: Monitor ABGs GI: No active issues. RENAL: #Mild acute kidney injury - resolving Likely cardiorenal vs inadequate diuresis vs new baseline Cr 1.4 (prev baseline ~1.0) DX: CMP 02/03/2025 Creatinine improved to 1.1 RX: - Continue IV Lasix 40mg qday RRX: F/U Cr #Hykerkalemia, resolved ENDO: #New diagnosis of type 2 diabetes A1c 6.2 Blood glucose 128 RX: ? Bedside glucose checks every 6 hours as NPO ? Insulin sliding scale as needed #Subclinical hypothyroidism TSH 0.2 Free T40.97 RX: ? No intervention indicated at this time MSK: No active issues. Hem/Onc: Leukocytosis DDX: Steroid-induced vs infection No fever Flu positive On Prednisone 20mg qday RX: - Continue Abx RRX: Monitor for fever, worsening leukocytosis ID: #Flu Pneumonia Dx: Chest x-ray today showed pneumonia left base Flu A positive Sputum gram stain: 3+ Gram Positive Cocci and 1+ Gram Positive Rods Sputum culture negative Blood culture negative RX: ? Continue on IV ceftriaxone 1 g daily ? Continue on IV azithromycin 250 mg daily for 5 day total course #MRSA, nares RX: ? Mupirocin TID Hospital Maintenance: Dispo: ICU DVT ppx: Apixaban 5 mg twice daily GI ppx: IV Protonix Diet: NPO Antimicrobials: Ceftriaxone and Azithromycin (01/31 - IV lines: PIV Code status: Full Code Patient plan of care was discussed with the attending auricular therapist, Dr. Leo. Skylar Sanches, PGY-3
[2025-02-03 14:40] LABS: Base Excess 16 (-3-3); HCO3 43 mEq/L (20-26); Inspired Oxygen, FIO2 40 %; O2 Saturation 94 % (91-98); PCO2 60 mmHg (32.0-48.0); PO2 65 mmHg (83-108); pH, Arterial 7.47 (7.35-7.45)
[2025-02-03 14:41] LABS: Allen Test Performed/OK; Puncture Site Left Radial
[2025-02-03 18:22] LABS: Base Excess 17 (-3-3); HCO3 44 mEq/L (20-26); Inspired Oxygen, FIO2 40 %; O2 Saturation 97 % (91-98); PCO2 66 mmHg (32.0-48.0); PO2 80 mmHg (83-108); pH, Arterial 7.44 (7.35-7.45)
[2025-02-03 18:35] LABS: Allen Test Performed/OK; Puncture Site Right Radial
[2025-02-03] MEDS: DEXMEDETOMIDINE 400 MCG IVPB 400 MCG/100 ML BAG 10.15 MCG IV (19:49)
--- NOTE | 2025-02-03 19:50 | EKG_ITS ---
[facility] Test Date: 2025-02-03 Pat Name: MICHAEL MILES Department: Room: 54A Gender: Female Physiotherapy Aide: YANY : 1965 Requested By: Benoit Pat Order Number: [id number] Reading MD: Benoit Pat Measurements Intervals [place] Rate: 101 P: NM: QRS: -9 QRSD: 101 T: 53 QT: 361 QTc: 469 Interpretive Statements ATRIAL FIBRILLATION WITH RAPID VENTRICULAR RESPONSE LOW QRS VOLTAGE ANTEROSEPTAL MYOCARDIAL INFARCTION , OF INDETERMINATE AGE Compared to ECG 01/31/2025 07:19:15 Right-axis deviation no longer present Myocardial infarct finding still present /store/S0/[id number]
[2025-02-03] MEDS: DEXMEDETOMIDINE 400 MCG IVPB 400 MCG/100 ML BAG 25.375 MCG IV (23:47)
[2025-02-04] VITALS (35 sets, daily range): BP systolic 113–150; BP diastolic 80–104; PULSE 83–121; RESP 12–36; TEMP 36.4–36.6; O2SAT 83–100; BMI 33.5
[2025-02-04] MEDS: ALBUTEROL/IPRATROPIUM (Duoneb) RT SOL 3 ML NEBU INH ×5 (01:05→18:13)
[2025-02-04 01:12] LABS: Base Excess 17 (-3-3); HCO3 44 mEq/L (20-26); Inspired Oxygen, FIO2 40 %; O2 Saturation 97 % (91-98); PCO2 67 mmHg (32.0-48.0); PO2 84 mmHg (83-108); pH, Arterial 7.43 (7.35-7.45)
[2025-02-04 01:13] LABS: Allen Test Performed/OK; Puncture Site Left Radial
[2025-02-04] MEDS: DEXMEDETOMIDINE 400 MCG IVPB 400 MCG/100 ML BAG 35.525 MCG IV ×5 (03:02→21:24)
[2025-02-04 05:39] LABS: Basophils # (Auto) 0.0 Thou/mm3 (0.0-0.2); Basophils % (Auto) 0 % (0-2.5); Eosinophils # (Auto) 0.0 Thou/mm3 (0.0-0.5); Eosinophils % (Auto) 0 % (0-10); Hematocrit 42.3 % (36.0-46.0); Hemoglobin 12.6 g/dL (12.0-16.0); Immature Granulocytes Auto 0.01 Thou/mm3 (0.00-0.00); Lymphocytes # (Auto) 0.4 Thou/mm3 (1.0-4.8); Lymphocytes % (Auto) 7 % (10-50); Mean Corpuscular HGB Conc 29.8 g/dl (31.0-37.0); Mean Corpuscular Hemoglobin 26.8 pg (25.0-35.0); Mean Corpuscular Volume 90 fL (80-100); Monocytes # (Auto) 0.1 Thou/mm3 (0.0-0.8); Monocytes % (Auto) 3 % (0-12); Neutrophils # (Auto) 4.6 Thou/mm3 (1.8-7.7); Neutrophils % (Auto) 90 % (37-80); Nucleated Red Blood Cell # 0.00 Thou/mm3 (0.00-0.00); Nucleated Red Blood Cell % 0 /100 WBC (0); RDW Standard Deviation 47.4 fL (36.4-46.3); Red Blood Count 4.70 Miln/mm3 (4.00-5.20); White Blood Count 5.1 Thou/mm3 (3.6-11.0)
[2025-02-04 05:40] LABS: Platelet Count 70 Thou/mm3 (140-440)
[2025-02-04] MEDS: MUPIROCIN OINT 2% 15 GM TUBE TOP ×3 (05:58→21:23)
[2025-02-04 06:00] LABS: Alanine Aminotransferase 11 U/L (10-49); Albumin, Serum 3.3 gm/dL (3.4-4.8); Albumin/Globulin Ratio 1.7 (1.2-2.2); Alkaline Phosphatase 79 U/L (46-116); Anion Gap 9 (7-16); Aspartate Amino Transferase 20 U/L (0-34); BUN/Creatinine Ratio 20 Ratio (12-20); Bilirubin,Total 0.6 mg/dL (0.3-1.2); Blood Urea Nitrogen 18 mg/dL (9-23); Calcium 9.1 mg/dL (8.3-10.6); Calcium (Corrected) 9.7 mg/dL (8.5-10.1); Carbon Dioxide 37.8 mMol/L (20.0-31.0); Chloride 98 mMol/L (98-107); Creatinine (Component) 0.9 mg/dL (0.6-1.3); Estimated Creatinine Clearance 79.1 mL/min (>60); Globulin 1.9 gm/dL (2.3-3.5); Glucose 121 mg/dL (74-106); Magnesium 2.0 mg/dL (1.6-2.6); Osmolality,Calculated 291 (275-295); Phosphorous 3.5 mg/dL (2.4-5.1); Potassium 4.3 mMol/L (3.4-5.1); Sodium 145 mMol/L (136-145); Total Protein 5.2 gm/dL (5.7-8.2); eGFR > 60 See Note
[2025-02-04] MEDS: DEXMEDETOMIDINE 400 MCG IVPB 400 MCG/100 ML BAG 30.45 MCG IV ×2 (06:00→12:09)
--- NOTE | 2025-02-04 06:00 | XR_ITS ---
Examination: AP chest single view Technique one AP portable semiupright chest single view Date and time: February 04, 2025, 0604 hours Comparison February 03, 2025 INDICATIONS: Heart failure, COPD, hypoxic respiratory failure postintubation FINDINGS: The patient has been extubated Mild to moderate enlargement cardiac contour There remains bibasilar pneumonia Moderate vascular congestion. No jordin pulmonary edema. Moderate osteopenia IMPRESSION: There remains bibasilar pneumonia Moderate vascular congestion
[2025-02-04 06:45] LABS: Slide Review Platelets confirmed
[2025-02-04 07:34] LABS: Base Excess 16 (-3-3); HCO3 44 mEq/L (20-26); Inspired Oxygen, FIO2 21 %; O2 Saturation 94 % (91-98); PCO2 66 mmHg (32.0-48.0); PO2 68 mmHg (83-108); pH, Arterial 7.43 (7.35-7.45)
[2025-02-04 07:35] LABS: Allen Test Not Performed; Puncture Site Right Radial
[2025-02-04] MEDS: DOXYCYCLINE INJ 100 MG in SODIUM CHLORIDE 0.9% (POP) 100 ML IV ×2 (08:57→20:31)
[2025-02-04] MEDS: cefTRIAXone/D5w 1gm IV premix 1 GM/50 ML BAG IV (08:58)
[2025-02-04] MEDS: FUROSEMIDE INJ 10 MG/ML 4ML VIAL 40 MG IVP ×2 (08:58→20:29)
--- NOTE | 2025-02-04 08:59 | ESPR_ITS ---
<Statement entered by Trina Leo MD - 02/04/25 13:16> TOTAL CC TIME:45 MIN I saw and evaluated the patient. I reviewed the resident?s note and agree with findings and plan as documented in the resident?s note. Upon my evaluation, this patient had a high probability of imminent or life- threatening deterioration due to acute on chronic hypoxic hypercapnic respiratory failure, which required my direct attention, intervention, and personal management. This time is exclusive of time spent on procedures, which are documented separately if performed. Able to wean off noninvasive positive pressure ventilation to facemask, remains delirious but improved continue current therapy. Recheck sodium and if increasing start gentle D5 W. Continue diuresis Documentation for date of: 02/04/25 Subjective Subjective Interval history: Ms. Fely Bland is a 59-year-old female with a past medical history significant for past substance abuse, bipolar disorder, A-fib on Eliquis, HFrEF, COPD, and active smoking. She was brought to the Emergency Room by ambulance due to shortness of breath. The patient reported to EMS a history of dyspnea for an indeterminate period that has recently worsened. She denied chest pain, nausea, vomiting, changes in bowel movements, or dysuria. Complete history unattainable due to patient's somnolent status. Interval history: 02/01/2025 The patient had no acute overnight events and remains under deep sedation. A recent chest x-ray shows new bilateral infiltrates. The patient tested positive for the flu and has been started on Tamiflu. According to her , the patient had been feeling unwell with general malaise for about a week. He also disclosed that she saw her print line inspector two weeks ago but was unable to fill her heart failure medications due to outstanding balances and has not been taking them. Consider consulting social media marketing specialist. Furthermore, he noted that the patient is still smoking approximately two cigarettes a day, and had not taken any sleeping pills or illicit drugs, other than Tylenol. Patient uses home O2 with an unconfirmed amount. 02/02/2025 No acute overnight events. The patient has been transitioned from volume- controlled ventilation to pressure support ventilation. However, the patient is not yet a candidate for extubation due to hemodynamic instability and hypercapnia, as evidenced by ABG demonstrating CO2 retention. We will try again tomorrow. 02/03/2025 No acute overnight events. Patient was on pressure support FiO2 30% and successfully was extubated to BiPAP. She is able to follow commands and answer yes and no questions, yet continues to be agitated at times therefore she is on restraints, as well as titratable Precedex, and fentanyl drip. Hold for MAP <65, RR <14, or unable to arouse. Patient was titrated off fentanyl drip, however had several episodes of agitation and confusion requiring haldol pushes, which only lasted about 30 minutes. Patient was unable to properly converse and sounded confused. She was given about 4 hours of break off BiPAP on OxyMask. BiPAP to be resumed all night. ABG scheduled q6h. Patient continues to have expiratory wheezing on examination. Prednisone converted to Solu-Medrol again given patient unable to swallow yet. Creatinine showed improvement finally today at 1.1. Will continue with Lasix 40 mg qday, patient continues to have good urine output with -4L in the past day. 02/04/2025 No acute overnight events. The patient continued on BiPAP all night. The patient remained agitated this morning. Given a QTc of 469ms, further olanzapine doses were withheld. The patient had received 10 mg of olanzapine thrice in the past 24 hours. Additionally, the patient was given 25 mg of Benadryl once. The BiPAP was trialled off given a stable ABG this morning. However, if the patient's respirations increase or patient clinically deteriorates, it will be put back on. IV Lasix was increased from 40 mg daily to twice daily as the patient is still volume overloaded. The patient's sodium levels will need to be monitored closely, as she is not drinking and is at risk for hypernatremia. A swallow evaluation needs to be passed before starting feeds. Exam Vital Signs Temp Pulse Resp BP Pulse Ox O2 Del Method O2 Flow Rate 97.9 F 95 14 137/92 H 95 BiPAP 10 02/04/25 04:00 02/04/25 08:58 02/04/25 06:48 02/04/25 08:58 02/04/25 06:48 02/04/25 06:00 02/03/25 20:00 FiO2 40 02/04/25 06:48 Narrative Exam HEENT: Eyes swollen RYLEE, Some discharge appreciated RYLEE, EOMI, Pupils reactive RYLEE, not icteric. Dry mucous membranes. RESP: Reduced air entry bilaterally, inspiratory crackles with expiratory wheezes CVS: RRR, no murmurs. Bilat pitting pedal edema +2 Abdomen: Soft, nondistended, nontender, No rebound tenderness. Bowel sounds present. MSK: No joint swelling, no redness, peripheral pulses presents Skin: Skin brusies on bilateral arms next to IV sites. No rashes, petechiae, lesions. Neuro: Under sedation. GCS 12 Objective Labs 02/04/25 04:37 02/04/25 16:25 Labs: Laboratory Results - last 24 hr 02/03/25 02/03/25 02/03/25 10:55 14:29 18:13 WBC RBC Hgb Hct MCV MCH MCHC RDW Std Deviation Plt Count Neut % (Auto) Lymph % (Auto) [place] % (Auto) Eos % (Auto) Baso % (Auto) Neut # (Auto) Lymph # (Auto) [place] # (Auto) Eos # (Auto) Baso # (Auto) Immature Gran # (Auto) Absolute Nucleated RBC Immature Gran % Nucleated RBC % Puncture Site Left Radial Left Radial Right Radial ABG pH 7.44 7.47 H 7.44 ABG pCO2 59 H 60 H 66 H ABG pO2 65 L 65 L 80 L ABG HCO3 40 H 43 H 44 H ABG O2 Saturation 94 94 97 ABG Base Excess 13 H 16 H 17 H FiO2 35 40 40 Sodium Potassium Chloride Carbon Dioxide Anion Gap BUN Creatinine Estim Creat Clear Calc eGFR BUN/Creatinine Ratio Glucose Calculated Osmolality Calcium Corrected Calcium Phosphorus Magnesium Total Bilirubin AST ALT Alkaline Phosphatase Total Protein Albumin Globulin Albumin/Globulin Ratio [facility] [place] Test Result 02/04/25 02/04/25 02/04/25 00:46 04:37 07:26 WBC 5.1 RBC 4.70 Hgb 12.6 Hct 42.3 MCV 90 MCH 26.8 MCHC 29.8 L RDW Std Deviation 47.4 H Plt Count 70 L Neut % (Auto) 90 H Lymph % (Auto) 7 L [place] % (Auto) 3 Eos % (Auto) 0 Baso % (Auto) 0 Neut # (Auto) 4.6 Lymph # (Auto) 0.4 L [place] # (Auto) 0.1 Eos # (Auto) 0.0 Baso # (Auto) 0.0 Immature Gran # (Auto) 0.01 H Absolute Nucleated RBC 0.00 Immature Gran % 0 Nucleated RBC % 0 Puncture Site Left Radial Right Radial ABG pH 7.43 7.43 ABG pCO2 67 H 66 H ABG pO2 84 68 L ABG HCO3 44 H 44 H ABG O2 Saturation 97 94 ABG Base Excess 17 H 16 H FiO2 40 21 Sodium 145 Potassium 4.3 Chloride 98 Carbon Dioxide 37.8 H Anion Gap 9 BUN 18 Creatinine 0.9 Estim Creat Clear Calc 79.1 eGFR > 60 BUN/Creatinine Ratio 20 Glucose 121 H Calculated Osmolality 291 Calcium 9.1 Corrected Calcium 9.7 Phosphorus 3.5 Magnesium 2.0 Total Bilirubin 0.6 AST 20 ALT 11 Alkaline Phosphatase 79 Total Protein 5.2 L Albumin 3.3 L Globulin 1.9 L Albumin/Globulin Ratio 1.7 Misc Test Result Platelets confirmed ABG Interpretation ABG results: 01/31/25 01/31/25 01/31/25 07:20 08:33 10:48 ABG pH 7.16 L* 7.12 L* 7.13 L* ABG pCO2 104 H* 114 H* D 107 H* ABG pO2 325 H 297 H D 109 H D ABG HCO3 37 H 37 H 35 H ABG O2 Saturation 101 H 101 H 98 ABG Base Excess 5 H 4 H 3 01/31/25 01/31/25 02/01/25 13:49 18:13 04:34 ABG pH 7.13 L* 7.34 L D 7.36 ABG pCO2 104 H* 63 H D 60 H ABG pO2 54 L* D 103 D 106 ABG HCO3 35 H 34 H 34 H ABG O2 Saturation 83 L 99 H 99 H ABG Base Excess 3 6 H 7 H 02/02/25 02/02/25 02/03/25 04:38 12:42 04:25 ABG pH 7.38 7.32 L 7.43 D ABG pCO2 60 H 72 H* D 61 H D ABG pO2 67 L D 74 L 60 L ABG HCO3 36 H 37 H 40 H ABG O2 Saturation 94 94 92 ABG Base Excess 9 H 8 H 14 H 02/03/25 02/03/25 02/03/25 10:55 14:29 18:13 ABG pH 7.44 7.47 H 7.44 ABG pCO2 59 H 60 H 66 H ABG pO2 65 L 65 L 80 L ABG HCO3 40 H 43 H 44 H ABG O2 Saturation 94 94 97 ABG Base Excess 13 H 16 H 17 H 02/04/25 02/04/25 00:46 07:26 ABG pH 7.43 7.43 ABG pCO2 67 H 66 H ABG pO2 84 68 L ABG HCO3 44 H 44 H ABG O2 Saturation 97 94 ABG Base Excess 17 H 16 H Quality Measures Quality Measures none Assessment & Plan Assessment Current Active Medications: Generic Name Dose Route Start Last Admin Trade Name Freq PRN Reason Stop Dose Admin Acetaminophen 650 mg 01/31/25 12:25 Acetaminophen 325 Mg Tablet PO 03/02/25 12:24 Q4HR PRN PAIN SCALE 1-3 (mild Acetaminophen 650 mg 01/31/25 12:25 Acetaminophen Supp 650 Mg Supp SC 03/02/25 12:24 Q4HR PRN PAIN SCALE 1-3 (mild Albuterol/Ipratropium 3 ml 01/31/25 13:00 02/04/25 06:46 Albuterol/Ipratropium (Duoneb) Rt Kaitlynn 3 Ml Nebu INH 03/02/25 12:59 3 ml Q6HRRT ALIA Administration Enoxaparin Sodium 100 mg 02/03/25 10:45 02/03/25 20:52 Enoxaparin Sod Inj 100 Mg/Ml Syringe 1 mg/kg (100 mg) 02/17/25 10:44 100 mg SC Administration BID ALIA Furosemide 40 mg 02/04/25 09:00 02/04/25 08:58 Furosemide Inj 10 Mg/Ml 4ml Vial IVP 03/06/25 08:59 40 mg BID ALIA Administration Ceftriaxone Sodium/Dextrose 1 gm in 50 mls @ 100 mls/hr 01/31/25 12:42 02/04/25 08:58 Rocephin/D5w 1gm Iv Premix IV 02/07/25 12:41 100 mls/hr QDAY ALIA Administration Dexmedetomidine/Sodium Chloride 400 mcg in 100 mls @ 5.075 mls/hr 02/02/25 07:52 02/04/25 08:00 Precedex Ivpb IV 03/04/25 07:51 1.4 mcg/kg/hr .[id number] PRN 35.525 mls/hr Per PROTOCOL Titration Protocol 0.2 MCG/KG/HR Doxycycline Hyclate 100 mg/ 100 mls @ 100 mls/hr 02/02/25 09:15 02/04/25 08:57 Sodium Chloride IV 02/09/25 09:14 100 mls/hr BID ALIA Administration Fentanyl Citrate 2,500 mcg in 250 mls @ 2.5 mls/hr 02/03/25 11:37 Sublimaze Inj 2,500 Mcg/250 Ml Bag IV 02/05/25 13:46 .Q24H PRN PER PROTOCOL Protocol 25 MCG/HR Methylprednisolone Sodium Succinate 40 mg 02/03/25 21:00 02/04/25 08:58 Methylprednisolone Sod Succ 40 Mg Vial IVP 02/10/25 20:59 40 mg Q12HR ALIA Administration Midodrine 10 mg 02/02/25 14:25 02/04/25 05:19 Midodrine 5 Mg Tablet PO 03/02/25 13:59 Not Given TID ALIA Mupirocin 0 gm 02/02/25 14:00 02/04/25 05:58 Mupirocin Oint 2% 15 Gm Tube TOP 02/09/25 13:59 1 appl TID ALIA Administration Oseltamivir Phosphate 75 mg 02/01/25 09:30 02/03/25 20:55 Oseltamivir 75 Mg Capsule PO 02/08/25 09:29 Not Given BID ALIA Pantoprazole Sodium 40 mg 01/31/25 12:30 02/04/25 08:57 Pantoprazole Inj 40 Mg Vial IVP 03/02/25 12:29 40 mg QDAY ALIA Administration Plan Ms. Fely Bland is 59-year-old female with a history of past substance abuse, bipolar disorder, A-fib on Eliquis, COPD, HFrEF, and active smoking presented with worsening shortness of breath of an unknown duration. She was admitted to the ICU due to persistent respiratory acidosis, which did not improve with BiPAP, and required intubation and mechanical ventilation. 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 Continue BiPAP all night ? ABG q6h ? Continue antibiotics empirically RRX: monitor for worsening clinical status #Agitation DDX: Hospital delirium, drug withdrawal DX: Patient has been able to follow commands and ask yes or no questions, but has been kicking, twisting, trying to take of the mask and get out of bed. Non- redirectable at times, even with at bedside. RX: ? Continue measures to prevent delirium, natural light, continue frequent re- orientation, family visitation ? Precedex drip ? Olanzipine 10 mg IM push as needed for severe agitation (max dose of 30 mg in 24 hours) ? Benadryl 25 mg IV as needed ? Fentanyl drip as needed, titratable by 25 mcg, stop if MAP <65, RR <14, or difficult to arouse ? Soft wrist restraints CVS: #CHF exacerbation #Hx of HrEF Mild volume overload on examination, +2 bilat pedal edema Last ECHO 11/19 Estimtaed EF 40-45% BNP 560 RX: ? Echo pending, has been REORDERED ? Increased IV Lasix 40 mg BID ? Restart GDMT when appropriate RRX: Check responsiveness to Lasix with urine output #Hypotension, resolved Secondary to propofol RX: ? OFF propofol ? OFF pressor support ? Midodrine 10 mg 3 times daily with BP parameters set #Chronic A-fib, rate-controlled [id number]: 1 Rate: Controlled with metoprolol Rhythm: Irregular AC: Eliquis 5mg BID RX: ? Switched Eliquis 5 mg twice daily to Lovenox 100mg q12h as not tolerating oral ? HELD Lovenox given dropping Plt ? Consider restarting home metoprolol dose RRX: ?Monitor telemetry reading. RESP: #Acute on Chronic Hypoxic hypercapnic respiratory failure #Respiratory acidosis, resolved #History of COPD Multifactorial including flu pneumonia, CHF exacerbation, history of COPD, YASH, Obesity Hypoventilation syndrome ABG today showed pH 7.32, PCO2 72, PO2 74 DX: ABG, CXR, ECHO 02/03/2025 Extubated to BiPAP RX: ? Continue influenza treatment ? Maintaining FiO2 88 to 92% given COPD history ? ECHO Pending ? Converted prednisone 20 mg to methylprednisolone 40 mg q12h daily due to lack of PO ability until 02/06 (total 5 days) ? DuoNeb every 6 hours ? ABG in AM ? Continue BiPAP all night RRX: Monitor ABGs GI: No active issues. RENAL: #Mild acute kidney injury - resolving Likely cardiorenal vs inadequate diuresis vs new baseline Cr baseline ~1.0) DX: CMP 02/03/2025 Creatinine improved to 1.1 02/04/2025 Cr 0.9 RX: - Continue IV Lasix 40mg BID RRX: F/U Cr #Hykerkalemia, resolved ENDO: #New diagnosis of type 2 diabetes A1c 6.2 Blood glucose 121 RX: ? Bedside glucose checks every 6 hours as NPO ? Insulin sliding scale as needed #Subclinical hypothyroidism TSH 0.2 Free T40.97 RX: ? No intervention indicated at this time MSK: No active issues. Hem/Onc: #Leukocytosis, resolved DDX: Steroid-induced vs infection No fever Flu positive On Prednisone 20mg qday RX: - Continue Abx RRX: Monitor for fever, worsening leukocytosis #Thrombocytopenia DDX: Nutritional deficiencies vs. infection Platelets 76 -> 70 Flu A+ RX: ?Check vitamin B-12 and folate levels ?Continue Tamiflu ?HELD Lovenox ID: #Flu Pneumonia With potential superimposed bacterial infection Dx: Chest x-ray showed pneumonia left base Flu A positive Sputum gram stain: 3+ Gram Positive Cocci and 1+ Gram Positive Rods Sputum culture mixed vijay Blood culture negative RX: ? Continue Tamiflu 75 mg twice daily X5 days ? Continue on IV ceftriaxone 1 g daily ? Continue on IV doxycycline 100 mg BID for 5 day total course #MRSA, nares RX: ? Mupirocin TID Hospital Maintenance: Dispo: ICU DVT ppx: Lovenox 100mg subcut BID (HELD due to LOW Plt) GI ppx: IV Protonix Diet: NPO Antimicrobials: Ceftriaxone (01/31- Azithromycin (01/31-02/02), Doxycycline (02/02- Tamiflu (02/01- IV lines: PIV Code status: Full Code Case discussed with my attending Dr. Felipa Willett MD PGY-1
[2025-02-04] MEDS: OLANZapine INJ 10 MG, Sterile Water 2.1 ML IM (09:59)
--- NOTE | 2025-02-04 11:20 | PCS.ST ---
swallow evaluation attempted. Pt unable to be roused. TAVERN KEEPER will re-attempt swallow evaluation tomorrow morning.
--- NOTE | 2025-02-04 11:22 | PC.SS ---
Update: Patient extubated on 02-03-25. Patient on 6L oxygen. Patient failed speech evaluation. Patient receiving Precedix. Patient receiving IV antibiotics. Patient is afebrile. Patient is not requiring pressor support.
--- NOTE | 2025-02-04 15:26 | PC.NURSE ---
Olanzapine given at 0959 compounded mixture verified with pharmacy before administration.
[2025-02-04 17:00] LABS: Albumin, Serum 3.4 gm/dL (3.4-4.8); BUN/Creatinine Ratio 16 Ratio (12-20); Blood Urea Nitrogen 14 mg/dL (9-23); Calcium 9.5 mg/dL (8.3-10.6); Calcium (Corrected) 10.0 mg/dL (8.5-10.1); Chloride 97 mMol/L (98-107); Creatinine (Component) 0.9 mg/dL (0.6-1.3); Estimated Creatinine Clearance 78.1 mL/min (>60); Glucose 142 mg/dL (74-106); Osmolality,Calculated 289 (275-295); Phosphorous 3.0 mg/dL (2.4-5.1); Potassium 4.2 mMol/L (3.4-5.1); Sodium 144 mMol/L (136-145); eGFR > 60 See Note
[2025-02-04 17:03] LABS: Anion Gap 9 (7-16); Carbon Dioxide 37.7 mMol/L (20.0-31.0)
[2025-02-04 17:38] LABS: Base Excess 20 (-3-3); HCO3 48 mEq/L (20-26); Inspired O2, VO2 Liters 6 L/min; Inspired Oxygen, FIO2 21 %; O2 Saturation 91 % (91-98); PCO2 67 mmHg (32.0-48.0); pH, Arterial 7.47 (7.35-7.45)
[2025-02-04 17:40] LABS: Puncture Site Right Radial
[2025-02-04 17:42] LABS: Allen Test Performed/OK
[2025-02-04 17:43] LABS: PO2 58 mmHg (83-108)
[2025-02-04] MEDS: OSELTAMIVIR 75 MG CAPSULE PO (20:46)
[2025-02-04] MEDS: ACETAMINOPHEN 325 MG TABLET 650 MG PO (20:46)
--- NOTE | 2025-02-04 21:35 | EKG_ITS ---
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
[2025-02-04] MEDS: Magnesium Sulfate 2 GM Ivpb 2 GM/50 ML BAG IV (22:00)
--- NOTE | 2025-02-04 22:39 | PC.RT ---
Per Dr. Mckenzie, pt will remain off of bipap tonight.
[2025-02-04] MEDS: ACETAzolaMIDE SOD 500 MG in SODIUM CHLORIDE 0.9% 50 ML 100 MG IV (22:53)
[2025-02-05] VITALS (34 sets, daily range): BP systolic 89–150; BP diastolic 47–127; PULSE 80–146; RESP 12–39; TEMP 36.1–36.8; O2SAT 87–99; BMI 32.2
[2025-02-05] MEDS: DEXMEDETOMIDINE 400 MCG IVPB 400 MCG/100 ML BAG 35.525 MCG IV (00:16)
[2025-02-05] MEDS: ALBUTEROL/IPRATROPIUM (Duoneb) RT SOL 3 ML NEBU INH ×5 (00:21→22:40)
[2025-02-05] MEDS: MIDAZOLAM INJ 1 MG/ML VIAL 2 ML 2 MG IVP (02:10)
[2025-02-05] MEDS: DEXMEDETOMIDINE 400 MCG IVPB 400 MCG/100 ML BAG 20.3 MCG IV (03:30)
--- NOTE | 2025-02-05 06:00 | XR_ITS ---
Examination: AP chest single view Technique one AP portable semiupright chest single view Date and time: February 05, 2025 0652 hours Comparison February 04, 2025 INDICATIONS: Cough and congestion shortness of breath this week. FINDINGS: Pneumonia right base obscuring detail right hemidiaphragm Possible small to moderate right pleural effusion Multiple retrocardiac contour. No pulmonary edema IMPRESSION: Right base pneumonia with right pleural fluid
[2025-02-05] MEDS: MUPIROCIN OINT 2% 15 GM TUBE TOP ×2 (06:07→22:02)
[2025-02-05 06:35] LABS: Basophils # (Auto) 0.0 Thou/mm3 (0.0-0.2); Basophils % (Auto) 0 % (0-2.5); Eosinophils # (Auto) 0.0 Thou/mm3 (0.0-0.5); Eosinophils % (Auto) 0 % (0-10); Hematocrit 45.0 % (36.0-46.0); Hemoglobin 13.3 g/dL (12.0-16.0); Immature Granulocytes Auto 0.02 Thou/mm3 (0.00-0.00); Lymphocytes # (Auto) 0.4 Thou/mm3 (1.0-4.8); Lymphocytes % (Auto) 7 % (10-50); Mean Corpuscular HGB Conc 29.6 g/dl (31.0-37.0); Mean Corpuscular Hemoglobin 26.3 pg (25.0-35.0); Mean Corpuscular Volume 89 fL (80-100); Monocytes # (Auto) 0.2 Thou/mm3 (0.0-0.8); Monocytes % (Auto) 3 % (0-12); Neutrophils # (Auto) 4.9 Thou/mm3 (1.8-7.7); Neutrophils % (Auto) 90 % (37-80); Nucleated Red Blood Cell # 0.00 Thou/mm3 (0.00-0.00); Nucleated Red Blood Cell % 0 /100 WBC (0); RDW Standard Deviation 45.6 fL (36.4-46.3); Red Blood Count 5.06 Miln/mm3 (4.00-5.20); White Blood Count 5.5 Thou/mm3 (3.6-11.0)
[2025-02-05 06:38] LABS: Platelet Count 66 Thou/mm3 (140-440); Slide Review Platelets confirmed
[2025-02-05 07:10] LABS: Alanine Aminotransferase 12 U/L (10-49); Albumin, Serum 3.6 gm/dL (3.4-4.8); Albumin/Globulin Ratio 1.8 (1.2-2.2); Alkaline Phosphatase 101 U/L (46-116); Anion Gap 11 (7-16); Aspartate Amino Transferase 19 U/L (0-34); BUN/Creatinine Ratio 21 Ratio (12-20); Bilirubin,Total 0.7 mg/dL (0.3-1.2); Blood Urea Nitrogen 21 mg/dL (9-23); Calcium 9.4 mg/dL (8.3-10.6); Calcium (Corrected) 9.7 mg/dL (8.5-10.1); Carbon Dioxide > 40.0 mMol/L (20.0-31.0); Chloride 94 mMol/L (98-107); Creatinine (Component) 1.0 mg/dL (0.6-1.3); Estimated Creatinine Clearance 68.8 mL/min (>60); Globulin 2.0 gm/dL (2.3-3.5); Glucose 125 mg/dL (74-106); Magnesium 1.8 mg/dL (1.6-2.6); Osmolality,Calculated 292 (275-295); Phosphorous 3.3 mg/dL (2.4-5.1); Potassium 3.7 mMol/L (3.4-5.1); Sodium 145 mMol/L (136-145); Total Protein 5.6 gm/dL (5.7-8.2); eGFR > 60 See Note
[2025-02-05 07:20] LABS: Base Excess 16 (-3-3); HCO3 44 mEq/L (20-26); Inspired Oxygen, FIO2 21 %; O2 Saturation 93 % (91-98); PCO2 65 mmHg (32.0-48.0); PO2 65 mmHg (83-108); pH, Arterial 7.44 (7.35-7.45)
[2025-02-05 07:21] LABS: Allen Test Not Performed; Puncture Site Right Radial
[2025-02-05] MEDS: DOXYCYCLINE INJ 100 MG in SODIUM CHLORIDE 0.9% (POP) 100 ML IV ×2 (09:11→20:23)
[2025-02-05] MEDS: OSELTAMIVIR 75 MG CAPSULE PO ×2 (09:11→20:24)
[2025-02-05] MEDS: cefTRIAXone/D5w 1gm IV premix 1 GM/50 ML BAG IV (09:11)
[2025-02-05] MEDS: METOPROLOL SUCCINATE XL 25 MG TABCR PO (10:48)
[2025-02-05] MEDS: APIXABAN 2.5 MG TABLET 5 MG PO ×2 (10:48→20:30)
[2025-02-05] MEDS: METOPROLOL TARTRATE INJ 1 MG/ML AMP 5 ML 5 MG IVP (10:53)
--- NOTE | 2025-02-05 11:58 | ESPR_ITS ---
Documentation for date of: 02/05/25 Subjective Subjective Interval history: 59-year-old female with a past medical history significant for past substance abuse, bipolar disorder, A-fib on Eliquis, HFrEF, COPD, and active smoking. She was brought to the Emergency Room by ambulance due to shortness of breath. The patient reported to EMS a history of dyspnea for an indeterminate period that has recently worsened. She denied chest pain, nausea, vomiting, changes in bowel movements, or dysuria. Complete history unattainable due to patient's somnolent status. Interval history: 02/01/2025 The patient had no acute overnight events and remains under deep sedation. A recent chest x-ray shows new bilateral infiltrates. The patient tested positive for the flu and has been started on Tamiflu. According to her , the patient had been feeling unwell with general malaise for about a week. He also disclosed that she saw her general surgery physician assistant two weeks ago but was unable to fill her heart failure medications due to outstanding balances and has not been taking them. Consider consulting social science professor. Furthermore, he noted that the patient is still smoking approximately two cigarettes a day, and had not taken any sleeping pills or illicit drugs, other than Tylenol. Patient uses home O2 with an unconfirmed amount. 02/02/2025 No acute overnight events. The patient has been transitioned from volume- controlled ventilation to pressure support ventilation. However, the patient is not yet a candidate for extubation due to hemodynamic instability and hypercapnia, as evidenced by ABG demonstrating CO2 retention. We will try again tomorrow. 02/03/2025 No acute overnight events. Patient was on pressure support FiO2 30% and successfully was extubated to BiPAP. She is able to follow commands and answer yes and no questions, yet continues to be agitated at times therefore she is on restraints, as well as titratable Precedex, and fentanyl drip. Hold for MAP <65, RR <14, or unable to arouse. Patient was titrated off fentanyl drip, however had several episodes of agitation and confusion requiring haldol pushes, which only lasted about 30 minutes. Patient was unable to properly converse and sounded confused. She was given about 4 hours of break off BiPAP on OxyMask. BiPAP to be resumed all night. ABG scheduled q6h. Patient continues to have expiratory wheezing on examination. Prednisone converted to Solu-Medrol again given patient unable to swallow yet. Creatinine showed improvement finally today at 1.1. Will continue with Lasix 40 mg qday, patient continues to have good urine output with -4L in the past day. 02/04/2025 No acute overnight events. The patient continued on BiPAP all night. The patient remained agitated this morning. Given a QTc of 469ms, further olanzapine doses were withheld. The patient had received 10 mg of olanzapine thrice in the past 24 hours. Additionally, the patient was given 25 mg of Benadryl once. The BiPAP was trialled off given a stable ABG this morning. However, if the patient's respirations increase or patient clinically deteriorates, it will be put back on. IV Lasix was increased from 40 mg daily to twice daily as the patient is still volume overloaded. The patient's sodium levels will need to be monitored closely, as she is not drinking and is at risk for hypernatremia. A swallow evaluation needs to be passed before starting feeds. 02/05/2025 Patient was agitated overnight and received 25 milligrams of Seroquel however patient was still agitated and required 2 mg of midazolam x 1. Precedex infusion was decreased and stopped in the morning. Patient passed a swallow screen. Patient had 150 mL measured urine output however had 3 large unmeasured urine output. BiPAP has been removed. Agitation is well controlled. Patient is going to be transferred to the medical floor today as not requiring ICU level care anymore. Exam Vital Signs Temp Pulse Resp BP Pulse Ox O2 Del Method O2 Flow Rate 98.3 F 132 H 22 H 132/90 H 94 L BiPAP 7 02/05/25 08:00 02/05/25 10:53 02/05/25 10:19 02/05/25 10:53 02/05/25 10:19 02/05/25 03:01 02/05/25 00:21 FiO2 40 02/05/25 06:28 Narrative Exam HEENT: Eyes swollen RYLEE, Some discharge appreciated RYLEE, EOMI, Pupils reactive RYLEE, not icteric. Dry mucous membranes. RESP: Reduced air entry bilaterally, inspiratory crackles with expiratory wheezes CVS: RRR, no murmurs. Bilat pitting pedal edema +2 Abdomen: Soft, nondistended, nontender, No rebound tenderness. Bowel sounds present. MSK: No joint swelling, no redness, peripheral pulses presents Skin: Skin brusies on bilateral arms next to IV sites. No rashes, petechiae, lesions. Neuro: No focal neurologic deficits. Upper and lower extremities normal strength. Sensations intact. GCS 15. Objective Labs 02/06/25 05:55 02/06/25 05:55 Labs: Laboratory Results - last 24 hr 02/04/25 02/04/25 02/05/25 16:25 17:28 04:36 WBC 5.5 RBC 5.06 Hgb 13.3 Hct 45.0 MCV 89 MCH 26.3 MCHC 29.6 L RDW Std Deviation 45.6 Plt Count 66 L Neut % (Auto) 90 H Lymph % (Auto) 7 L Borden % (Auto) 3 Eos % (Auto) 0 Baso % (Auto) 0 Neut # (Auto) 4.9 Lymph # (Auto) 0.4 L Borden # (Auto) 0.2 Eos # (Auto) 0.0 Baso # (Auto) 0.0 Immature Gran # (Auto) 0.02 H Absolute Nucleated RBC 0.00 Immature Gran % 0 Nucleated RBC % 0 Puncture Site Right Radial ABG pH 7.47 H ABG pCO2 67 H ABG pO2 58 L* ABG HCO3 48 H ABG O2 Saturation 91 ABG Base Excess 20 H Oxygen Liter Flow 6 FiO2 21 Sodium 144 145 Potassium 4.2 3.7 D Chloride 97 L 94 L Carbon Dioxide 37.7 H > 40.0 H Anion Gap 9 11 BUN 14 21 Creatinine 0.9 1.0 Estim Creat Clear Calc 78.1 68.8 eGFR > 60 > 60 BUN/Creatinine Ratio 16 21 H Glucose 142 H 125 H Calculated Osmolality 289 292 Calcium 9.5 9.4 Corrected Calcium 10.0 9.7 Phosphorus 3.0 3.3 Magnesium 1.8 Total Bilirubin 0.7 AST 19 ALT 12 Alkaline Phosphatase 101 D Total Protein 5.6 L Albumin 3.4 3.6 Globulin 2.0 L Albumin/Globulin Ratio 1.8 Misc Test Result Platelets confirmed 02/05/25 07:12 WBC RBC Hgb Hct MCV MCH MCHC RDW Std Deviation Plt Count Neut % (Auto) Lymph % (Auto) Borden % (Auto) Eos % (Auto) Baso % (Auto) Neut # (Auto) Lymph # (Auto) Borden # (Auto) Eos # (Auto) Baso # (Auto) Immature Gran # (Auto) Absolute Nucleated RBC Immature Gran % Nucleated RBC % Puncture Site Right Radial ABG pH 7.44 ABG pCO2 65 H ABG pO2 65 L ABG HCO3 44 H ABG O2 Saturation 93 ABG Base Excess 16 H Oxygen Liter Flow FiO2 21 Sodium Potassium Chloride Carbon Dioxide Anion Gap BUN Creatinine Estim Creat Clear Calc eGFR BUN/Creatinine Ratio Glucose Calculated Osmolality Calcium Corrected Calcium Phosphorus Magnesium Total Bilirubin AST ALT Alkaline Phosphatase Total Protein Albumin Globulin Albumin/Globulin Ratio Misc Test Result ABG Interpretation ABG results: 01/31/25 01/31/25 01/31/25 07:20 08:33 10:48 ABG pH 7.16 L* 7.12 L* 7.13 L* ABG pCO2 104 H* 114 H* D 107 H* ABG pO2 325 H 297 H D 109 H D ABG HCO3 37 H 37 H 35 H ABG O2 Saturation 101 H 101 H 98 ABG Base Excess 5 H 4 H 3 01/31/25 01/31/25 02/01/25 13:49 18:13 04:34 ABG pH 7.13 L* 7.34 L D 7.36 ABG pCO2 104 H* 63 H D 60 H ABG pO2 54 L* D 103 D 106 ABG HCO3 35 H 34 H 34 H ABG O2 Saturation 83 L 99 H 99 H ABG Base Excess 3 6 H 7 H 02/02/25 02/02/25 02/03/25 04:38 12:42 04:25 ABG pH 7.38 7.32 L 7.43 D ABG pCO2 60 H 72 H* D 61 H D ABG pO2 67 L D 74 L 60 L ABG HCO3 36 H 37 H 40 H ABG O2 Saturation 94 94 92 ABG Base Excess 9 H 8 H 14 H 02/03/25 02/03/25 02/03/25 10:55 14:29 18:13 ABG pH 7.44 7.47 H 7.44 ABG pCO2 59 H 60 H 66 H ABG pO2 65 L 65 L 80 L ABG HCO3 40 H 43 H 44 H ABG O2 Saturation 94 94 97 ABG Base Excess 13 H 16 H 17 H 02/04/25 02/04/25 02/04/25 00:46 07:26 17:28 ABG pH 7.43 7.43 7.47 H ABG pCO2 67 H 66 H 67 H ABG pO2 84 68 L 58 L* ABG HCO3 44 H 44 H 48 H ABG O2 Saturation 97 94 91 ABG Base Excess 17 H 16 H 20 H 02/05/25 07:12 ABG pH 7.44 ABG pCO2 65 H ABG pO2 65 L ABG HCO3 44 H ABG O2 Saturation 93 ABG Base Excess 16 H Quality Measures Quality Measures none Assessment & Plan Assessment Current Active Medications: Generic Name Dose Route Start Last Admin Trade Name Freq PRN Reason Stop Dose Admin Acetaminophen 650 mg 01/31/25 12:25 02/04/25 20:46 Acetaminophen 325 Mg Tablet PO 03/02/25 12:24 650 mg Q4HR PRN Administration PAIN SCALE 1-3 (mild Acetaminophen 650 mg 01/31/25 12:25 Acetaminophen Supp 650 Mg Supp MN 03/02/25 12:24 Q4HR PRN PAIN SCALE 1-3 (mild Albuterol/Ipratropium 3 ml 01/31/25 13:00 02/05/25 06:27 Albuterol/Ipratropium (Duoneb) Rt Kaitlynn 3 Ml Nebu INH 03/02/25 12:59 3 ml Q6HRRT ALIA Administration Apixaban 5 mg 02/05/25 10:45 02/05/25 10:48 Apixaban 2.5 Mg Tablet PO 03/07/25 10:44 5 mg BID ALIA Administration Furosemide 40 mg 02/05/25 09:00 Furosemide Inj 10 Mg/Ml 4ml Vial IVP 03/07/25 08:59 QDAY ALIA Ceftriaxone Sodium/Dextrose 1 gm in 50 mls @ 100 mls/hr 01/31/25 12:42 02/05/25 09:11 Rocephin/D5w 1gm Iv Premix IV 02/07/25 12:41 100 mls/hr QDAY ALIA Administration Dexmedetomidine/Sodium Chloride 400 mcg in 100 mls @ 5.075 mls/hr 02/02/25 07:52 02/05/25 08:53 Precedex Ivpb IV 03/04/25 07:51 0 mcg/kg/hr .[id number] PRN 0 mls/hr Per PROTOCOL Titration Protocol 0.2 MCG/KG/HR Doxycycline Hyclate 100 mg/ 100 mls @ 100 mls/hr 02/02/25 09:15 02/05/25 09:11 Sodium Chloride IV 02/09/25 09:14 100 mls/hr BID ALIA Administration Fentanyl Citrate 2,500 mcg in 250 mls @ 2.5 mls/hr 02/03/25 11:37 Sublimaze Inj 2,500 Mcg/250 Ml Bag IV 02/05/25 13:46 .Q24H PRN PER PROTOCOL Protocol 25 MCG/HR Methylprednisolone Sodium Succinate 40 mg 02/03/25 21:00 02/05/25 09:12 Methylprednisolone Sod Succ 40 Mg Vial IVP 02/10/25 20:59 40 mg Q12HR ALIA Administration Metoprolol Succinate 25 mg 02/05/25 10:45 02/05/25 10:48 Metoprolol Succinate Xl 25 Mg Tabcr PO 03/07/25 10:44 25 mg QDAY ALIA Administration Midodrine 10 mg 02/02/25 14:25 02/05/25 06:06 Midodrine 5 Mg Tablet PO 03/02/25 13:59 Not Given TID ALIA Mupirocin 0 gm 02/02/25 14:00 02/05/25 06:07 Mupirocin Oint 2% 15 Gm Tube TOP 02/09/25 13:59 1 appl TID ALIA Administration Oseltamivir Phosphate 75 mg 02/01/25 09:30 02/05/25 09:11 Oseltamivir 75 Mg Capsule PO 02/08/25 09:29 75 mg BID ALIA Administration Pantoprazole Sodium 40 mg 01/31/25 12:30 02/05/25 09:11 Pantoprazole Inj 40 Mg Vial IVP 03/02/25 12:29 40 mg QDAY ALIA Administration Quetiapine Fumarate 50 mg 02/05/25 21:00 Quetiapine Fumarate 25 Mg Tablet PO 03/07/25 20:59 HS ALIA Plan 59-year-old female with a history of past substance abuse, bipolar disorder, A- fib on Eliquis, COPD, HFrEF, and active smoking presented with worsening shortness of breath of an unknown duration. She was admitted to the ICU due to persistent respiratory acidosis, which did not improve with BiPAP, and required intubation and mechanical ventilation. Patient has been stabilized and ready to be downgraded to the medical floor. 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 Continue measures to prevent delirium, natural light, continue frequent re- orientation, family visitation ? Stopped precedex drip ? Increased Seroquel to 50 mg daily nightly CVS: #CHF exacerbation #Hx of HrEF Mild volume overload on examination, +2 bilat pedal edema Last ECHO 11/19 Estimtaed EF 40-45% BNP 560 RX: ? Echo pending read by cardiology ? Dropped IV Lasix to 40 mg daily ? Restart GDMT when appropriate #Chronic A-fib, rate-controlled [id number]: 1 Rate: Controlled with metoprolol Rhythm: Irregular AC: Eliquis 5mg BID RX: ? HELD Eliquis due to drop in platelets ? Metoprolol tartrate 5 mg IV x 1 ? Metoprolol succinate 25 mg daily ? Contninue telemetry monitoring - Keep K >4 and Mg >2 RESP: #COPD exacerbation Patient is on home O2 of unknown amount, not on BiPAP ? Maintaining O2 stats 88 to 92% given COPD history ? DuoNeb every 6 hours ? Continue Abx GI: No active issues. RENAL: #Mild acute kidney injury -improved Likely cardiorenal as it improved with adequate diuresis Creatinine 1.0 (0.9) Plan: - Continue IV Lasix 40mg daily ENDO: #New diagnosis of type 2 diabetes A1c 6.2 Blood glucose 125 RX: ? Insulin sliding scale as needed ? Hypoglycemia protocol in place #Subclinical hypothyroidism TSH 0.2 Free T40.97 RX: ? No intervention indicated at this time MSK: No active issues. Hem/Onc: #Thrombocytopenia DDX: Drug-induced, Bone Marrow disorders, Nutritional deficiencies, infection NO signs of bleeding Platelets 76 -> 70 -> 66 Flu A+ and CAP RX: ?Check vitamin B-12 and folate levels ?Continue Tamiflu ?Continue abx ?Continue Eliquis as platelets greater than 50 ID: #Flu Pneumonia With potential superimposed bacterial infection Dx: Chest x-ray showed pneumonia left base Flu A positive Sputum gram stain: 3+ Gram Positive Cocci and 1+ Gram Positive Rods Sputum culture mixed vijay Blood culture negative RX: ? Continue Tamiflu 75 mg twice daily X5 days ? Continue on IV ceftriaxone 1 g daily ? Continue on IV doxycycline 100 mg BID for 5 day total course #MRSA, nares RX: ? Mupirocin TID Hospital Maintenance: Dispo: ICU DVT ppx: Eliquis 5 mg twice daily GI ppx: IV Protonix Diet: NPO Antimicrobials: Ceftriaxone (01/31- Azithromycin (01/31-02/02), Doxycycline (02/02- Tamiflu (02/01- IV lines: PIV Code status: Full Code Case discussed with my attending Dr. Rigo Willett MD PGY-1 Attending Provider Attestation/Addendum pt seen and examined with resident, agree with above. in brief this is a 59yo F who has been in the ICU for agitation on a precedex gtt. She had several code greys called yesterday. She was originally admitted with acute hypercapneic resp failure. Overnight she was on bipap and did well, she was weened off the precedex gtt this AM. On exam she is awake and conversant though perhaps confused. Lung mims with scattered expiratory wheeze, no crackles, HRIR, no increase in WOB. abd s/nt/bs+, no focal deficits. Agitation- improved and off precedex, did require a 1x haldol Afib c RVR- today rate uncontrolled and home meds including metoprolol resumed case d/w ICU team labs, imaging, records reviewed ~40min required for eval, exam, review, intervention, discussion and formulation of POC for this pt
[2025-02-05] MEDS: HALOPERIDOL LACT INJ 5 MG/ML VIAL IV (13:50)
[2025-02-05] MEDS: Magnesium Sulfate 2 GM Ivpb 2 GM/50 ML BAG IV (15:31)
--- NOTE | 2025-02-05 16:27 | ESPR_ITS ---
<Statement entered by Jasmeet Nathan MD - 02/08/25 14:39> I reviewed above note and agree with findings and plans. I have also personally examined the patient with medicine team and went over assessment and plan with medical team including market research intern and resident physician. Documentation for date of: 02/05/25 Subjective Subjective Interval history: Patient downgraded from ICU. Patient was seen and examined at bedside. AM vitals and labs reviewed. Handoff received from ICU team. Patient presented for shortness of breath and heart failure exacerbation with bilateral lower extremity edema. The patient is a poor historian, but she was able to recall that she was trying to obtain a new medication for her heart failure, but the patient's coupon did not work. It is unclear how, but the patient stated that she was not able to receive the rest of her medication. This was about 2 weeks ago, and the patient had not been taking any of her medications for about 2 weeks. Patient does not know what her medication list is. It is unclear if the patient has a harbor master, as she states that she has a heart doctor in [place], but does not know the name and states that she has never had an appointment with this patient. This ultimately led to her seeking care at the hospital, requiring ICU level care with intubation due to persistent respiratory acidosis. The patient was in the ICU for 5 days, extubated on 02/03, transitioned to BiPAP, and then downgraded to floors on 02/05 after patient was weaned off BiPAP and midodrine for blood pressure control. ICU team gave the patient Seroquel due to agitation. Currently on ceftriaxone and doxycycline, day 5 of 7 as well as Tamiflu until 02/08. Patient is currently breathing comfortably on 5 L nasal cannula. The patient states that she is on 2 to 4 L nasal cannula at home. Patient has no complaints at this time. Patient did endorse stomachache, diarrhea, fevers, blood in stools prior to her hospitalization. She also smoked half a pack of cigarettes for about 4 months, but has stopped and was not clear on when she stopped. Pending echocardiogram read. Review of systems otherwise negative except for what is mentioned above. Exam Vital Signs Temp Pulse Resp BP Pulse Ox O2 Del Method O2 Flow Rate 97.7 F 128 H 20 90/47 L 93 L Nasal Cannula 5 02/05/25 12:00 02/05/25 16:01 02/05/25 16:01 02/05/25 16:01 02/05/25 16:01 02/05/25 12:00 02/05/25 13:11 FiO2 40 02/05/25 06:28 Narrative Exam Physical Exam: General: Alert, no acute distress. Skin: Warm, dry, intact, no obvious rash. Head: Normocephalic, atraumatic. Eye: Normal conjunctiva, PERRL. Cardiovascular: Regular rate and irregular rhythm, no murmur, +S1/S2. Respiratory: Lungs are clear to auscultation, respirations unlabored, no crackles, wheezing periodically. Gastrointestinal: Soft, nontender, non-distended. No guarding or rebound tenderness. Extremities: 1+ edema BLE, no cyanosis, no clubbing. 2+ radial pulse bilaterally, 2+ pedal pulse bilaterally. Neuro: No focal deficits observed. Conversant, moving all extremities. No overt cerebellar signs/incoordination. Psychiatric: Cooperative, appropriate affect. Objective Labs 02/05/25 04:36 02/05/25 04:36 Labs: Laboratory Results - last 24 hr 02/04/25 02/04/25 02/05/25 16:25 17:28 04:36 WBC 5.5 RBC 5.06 Hgb 13.3 Hct 45.0 MCV 89 MCH 26.3 MCHC 29.6 L RDW Std Deviation 45.6 Plt Count 66 L Neut % (Auto) 90 H Lymph % (Auto) 7 L [place] % (Auto) 3 Eos % (Auto) 0 Baso % (Auto) 0 Neut # (Auto) 4.9 Lymph # (Auto) 0.4 L [place] # (Auto) 0.2 Eos # (Auto) 0.0 Baso # (Auto) 0.0 Immature Gran # (Auto) 0.02 H Absolute Nucleated RBC 0.00 Immature Gran % 0 Nucleated RBC % 0 Puncture Site Right Radial ABG pH 7.47 H ABG pCO2 67 H ABG pO2 58 L* ABG HCO3 48 H ABG O2 Saturation 91 ABG Base Excess 20 H Oxygen Liter Flow 6 FiO2 21 Sodium 144 145 Potassium 4.2 3.7 D Chloride 97 L 94 L Carbon Dioxide 37.7 H > 40.0 H Anion Gap 9 11 BUN 14 21 Creatinine 0.9 1.0 Estim Creat Clear Calc 78.1 68.8 eGFR > 60 > 60 BUN/Creatinine Ratio 16 21 H Glucose 142 H 125 H Calculated Osmolality 289 292 Calcium 9.5 9.4 Corrected Calcium 10.0 9.7 Phosphorus 3.0 3.3 Magnesium 1.8 Total Bilirubin 0.7 AST 19 ALT 12 Alkaline Phosphatase 101 D Total Protein 5.6 L Albumin 3.4 3.6 Globulin 2.0 L Albumin/Globulin Ratio 1.8 Misc Test Result Platelets confirmed 02/05/25 07:12 WBC RBC Hgb Hct MCV MCH MCHC RDW Std Deviation Plt Count Neut % (Auto) Lymph % (Auto) [place] % (Auto) Eos % (Auto) Baso % (Auto) Neut # (Auto) Lymph # (Auto) [place] # (Auto) Eos # (Auto) Baso # (Auto) Immature Gran # (Auto) Absolute Nucleated RBC Immature Gran % Nucleated RBC % Puncture Site Right Radial ABG pH 7.44 ABG pCO2 65 H ABG pO2 65 L ABG HCO3 44 H ABG O2 Saturation 93 ABG Base Excess 16 H Oxygen Liter Flow FiO2 21 Sodium Potassium Chloride Carbon Dioxide Anion Gap BUN Creatinine Estim Creat Clear Calc eGFR BUN/Creatinine Ratio Glucose Calculated Osmolality Calcium Corrected Calcium Phosphorus Magnesium Total Bilirubin AST ALT Alkaline Phosphatase Total Protein Albumin Globulin Albumin/Globulin Ratio Misc Test Result ABG Interpretation ABG results: 01/31/25 01/31/25 01/31/25 07:20 08:33 10:48 ABG pH 7.16 L* 7.12 L* 7.13 L* ABG pCO2 104 H* 114 H* D 107 H* ABG pO2 325 H 297 H D 109 H D ABG HCO3 37 H 37 H 35 H ABG O2 Saturation 101 H 101 H 98 ABG Base Excess 5 H 4 H 3 01/31/25 01/31/25 02/01/25 13:49 18:13 04:34 ABG pH 7.13 L* 7.34 L D 7.36 ABG pCO2 104 H* 63 H D 60 H ABG pO2 54 L* D 103 D 106 ABG HCO3 35 H 34 H 34 H ABG O2 Saturation 83 L 99 H 99 H ABG Base Excess 3 6 H 7 H 02/02/25 02/02/25 02/03/25 04:38 12:42 04:25 ABG pH 7.38 7.32 L 7.43 D ABG pCO2 60 H 72 H* D 61 H D ABG pO2 67 L D 74 L 60 L ABG HCO3 36 H 37 H 40 H ABG O2 Saturation 94 94 92 ABG Base Excess 9 H 8 H 14 H 02/03/25 02/03/25 02/03/25 10:55 14:29 18:13 ABG pH 7.44 7.47 H 7.44 ABG pCO2 59 H 60 H 66 H ABG pO2 65 L 65 L 80 L ABG HCO3 40 H 43 H 44 H ABG O2 Saturation 94 94 97 ABG Base Excess 13 H 16 H 17 H 02/04/25 02/04/25 02/04/25 00:46 07:26 17:28 ABG pH 7.43 7.43 7.47 H ABG pCO2 67 H 66 H 67 H ABG pO2 84 68 L 58 L* ABG HCO3 44 H 44 H 48 H ABG O2 Saturation 97 94 91 ABG Base Excess 17 H 16 H 20 H 02/05/25 07:12 ABG pH 7.44 ABG pCO2 65 H ABG pO2 65 L ABG HCO3 44 H ABG O2 Saturation 93 ABG Base Excess 16 H Quality Measures Quality Measures VTE prophylaxis Assessment & Plan Assessment Current Active Medications: Generic Name Dose Route Start Last Admin Trade Name Freq PRN Reason Stop Dose Admin Acetaminophen 650 mg 01/31/25 12:25 02/04/25 20:46 Acetaminophen 325 Mg Tablet PO 03/02/25 12:24 650 mg Q4HR PRN Administration PAIN SCALE 1-3 (mild Albuterol/Ipratropium 3 ml 01/31/25 13:00 02/05/25 13:08 Albuterol/Ipratropium (Duoneb) Rt Kaitlynn 3 Ml Nebu INH 03/02/25 12:59 3 ml Q6HRRT ALIA Administration Apixaban 5 mg 02/05/25 10:45 02/05/25 10:48 Apixaban 2.5 Mg Tablet PO 03/07/25 10:44 5 mg BID ALIA Administration Furosemide 40 mg 02/05/25 09:00 Furosemide Inj 10 Mg/Ml 4ml Vial IVP 03/07/25 08:59 QDAY ALIA Ceftriaxone Sodium/Dextrose 1 gm in 50 mls @ 100 mls/hr 01/31/25 12:42 02/05/25 09:11 Rocephin/D5w 1gm Iv Premix IV 02/07/25 12:41 100 mls/hr QDAY ALIA Administration Doxycycline Hyclate 100 mg/ 100 mls @ 100 mls/hr 02/02/25 09:15 02/05/25 09:11 Sodium Chloride IV 02/09/25 09:14 100 mls/hr BID ALIA Administration Magnesium Sulfate 2 gm in 50 mls @ 25 mls/hr 02/05/25 14:40 02/05/25 15:31 Magnesium Sulfate Ivpb IV 02/05/25 16:39 25 mls/hr X1 ONE Administration Metoprolol Succinate 25 mg 02/05/25 10:45 02/05/25 10:48 Metoprolol Succinate Xl 25 Mg Tabcr PO 03/07/25 10:44 25 mg QDAY ALIA Administration Mupirocin 0 gm 02/02/25 14:00 02/05/25 14:37 Mupirocin Oint 2% 15 Gm Tube TOP 02/09/25 13:59 Not Given TID ALIA Oseltamivir Phosphate 75 mg 02/01/25 09:30 02/05/25 09:11 Oseltamivir 75 Mg Capsule PO 02/08/25 09:29 75 mg BID ALIA Administration Pantoprazole Sodium 40 mg 01/31/25 12:30 02/05/25 09:11 Pantoprazole Inj 40 Mg Vial IVP 03/02/25 12:29 40 mg QDAY ALIA Administration Quetiapine Fumarate 50 mg 02/05/25 21:00 Quetiapine Fumarate 25 Mg Tablet PO 03/07/25 20:59 HS ALIA Plan Mrs. Bland is a 59 year old female with a history of bipolar disorder, schizophrenia, HFrEF (EF 40-45% 2023), A-fib (on Eliquis), COPD, asthma, past methamphetamine abuse, and active smoking presented to [facility] ED on 01/31 for shortness of breath and increased work of breathing. Patient was admitted to ICU due to persistent respiratory acidosis on BiPAP and somnolence, resulting in intubation to protect airways. Patient was downgraded to telemetry on 02/05 for improvement of respiratory status. #Acute hypoxic respiratory failure 2/2 #Acute CHF exacerbation #HFrEF (EF 40-45% 2023) #Respiratory acidosis (resolved) Patient presented to ED with worsening shortness of breath and increased work of breathing. Patient had not received medication for CHF about 2 weeks. Bilateral lower extremity edema was noted on presentation. Patient's last echocardiogram was performed on October 2023, which had estimated ejection fraction of 40 to 45%. BNP on presentation 560. Required intubation to protect her airways in the ED, which prompted admission to ICU. Patient successfully diuresed in ICU with furosemide 40mg IV daily. ? Continue furosemide 40 mg IV push daily ? Pending med rec to restart patient on GDMT, will reach out to patient's family 02/06 ? Pending echocardiogram read, according to ICU team, echocardiogram was performed but the read has not been uploaded ? Patient may benefit from outpatient echocardiogram if patient remains stable and read remains unuploaded #COPD exacerbation #History of asthma #Flu positive #MRSA positive nares #Hospital acquired pneumonia Patient presents to ED with worsening shortness of breath and increased work of breathing. Patient has a history of COPD and asthma. Patient was positive for flu and MRSA. Initial chest x-ray in ED showed no lobar pneumonia, but subsequent chest x-rays after patient was admitted to ICU showed formation of pneumonia starting at left lung base and 02/02, which progressed to significant bibasilar pneumonia on 02/03. Sputum culture of endotracheal tube was positive for 3+ gram-positive cocci, 1+ gram-positive rods, 3+ blood blood cells, and 2+ mixed oral vijay. Patient was also positive for flu A and MRSA nasal swab. ICU team started patient on Tamiflu 75 mg twice daily, ceftriaxone 1 g, and doxycycline 100 mg twice daily. Patient stated that she is on 2-4L of O2 at home. ? Continue patient on ceftriaxone 1 g (01/31--) ? Continue patient on doxycycline 100 mg twice daily (02/02--) ? Continue patient on Tamiflu 75 mg twice daily (02/01-02/08) ? Started patient on DuoNebs 3 mL every 4 hour ? Started patient on Solu-Medrol 40 mg IVP daily #A-fib, RVR, on Eliquis Patient has a history of A-fib on Eliquis, though the patient does not recall ever being diagnosed with A-fib when asked. Most recent EKG on 02/04 prior to ICU downgrade showed atrial fibrillation with rapid ventricular response, borderline heart rate of 100. ? Continue Eliquis 5 mg twice daily ? Pending med rec to restart patient on rate control medication #Acute kidney injury, mild (resolved) Patient presented with BUN 26, creatinine 1.4, and GFR 43 on 01/31. Her creatinine was elevated from baseline of 1.0. This is most likely due to fluid overload, cardiorenal syndrome, as a result of the patient's CHF exacerbation. In the ICU, the patient's BUN, creatinine, and GFR all returned to their baseline. ? Will continue to monitor with daily labs ? Continue with appropriate diuresis #Subclinical hypothyroidism Patient noted to have TSH of 0.2 and free T4 of 0.97. Patient does not appear symptomatic at this time. ? No intervention indicated at this time ? Patient to follow-up with outpatient PCP #Thrombocytopenia Patient came in with platelet of 83, which increased to 128, but has since been downtrending. This is potentially drug-induced secondary to ceftriaxone or potentially nutritional deficiencies. Infection was considered however this is less likely given that the patient has been on antibiotics, has improvement of her pneumonia, and is still downtrending on platelets. ? Continue to monitor with daily labs ? Will continue Eliquis as platelets are greater than 50 ? Will monitor for active signs of bleeding ? Will transfuse if platelets below 20 #Agitation (resolved) Patient was noted to have delirium but required multiple doses of olanzapine for management. ICU team eventually started patient on Seroquel, which seem to have significantly helped with the agitation. Patient initially received 25 mg of Seroquel, but was still agitated, requiring 2 mg of midazolam one-time dose. The patient was eventually increased to 50 milligrams of Seroquel, which seemed to be effective at keeping the patient calm. ? Will continue Seroquel 50 mg at night DVT Prophylaxis: Eliquis GI Prophylaxis: Protonix Bowel: N/A Diet: Dysphagia 2 [place]: N/A Lines: Peripheral IV Antibiotics: Ceftriaxone (01/31--) & Doxycycline (02/02--) Code Status: FULL Reason for Hospitalization: Persistent respiratory acidosis Other Barriers to Discharge: CHF med rec Patient plan of care was discussed with the senior resident Dr. López (PGY-2) and attending physician Dr. Nathan. Edd Solis, PGY1
[2025-02-05] MEDS: NICOTINE PATCH 21 MG/24 HR PATCH.TD24 TOP (18:27)
[2025-02-06] VITALS (17 sets, daily range): BP systolic 98–146; BP diastolic 58–100; PULSE 71–142; RESP 15–24; TEMP 36.3–36.8; O2SAT 93–100; BMI 32.2
[2025-02-06] MEDS: ALBUTEROL/IPRATROPIUM (Duoneb) RT SOL 3 ML NEBU INH ×6 (02:49→22:44)
[2025-02-06] MEDS: MUPIROCIN OINT 2% 15 GM TUBE TOP ×3 (05:23→21:04)
[2025-02-06 07:12] LABS: Basophils # (Auto) 0.0 Thou/mm3 (0.0-0.2); Basophils % (Auto) 0 % (0-2.5); Eosinophils # (Auto) 0.0 Thou/mm3 (0.0-0.5); Eosinophils % (Auto) 0 % (0-10); Hematocrit 47.0 % (36.0-46.0); Hemoglobin 13.8 g/dL (12.0-16.0); Immature Granulocytes Auto 0.03 Thou/mm3 (0.00-0.00); Lymphocytes # (Auto) 0.3 Thou/mm3 (1.0-4.8); Lymphocytes % (Auto) 4 % (10-50); Mean Corpuscular HGB Conc 29.4 g/dl (31.0-37.0); Mean Corpuscular Hemoglobin 26.5 pg (25.0-35.0); Mean Corpuscular Volume 90 fL (80-100); Monocytes # (Auto) 0.3 Thou/mm3 (0.0-0.8); Monocytes % (Auto) 3 % (0-12); Neutrophils # (Auto) 7.3 Thou/mm3 (1.8-7.7); Neutrophils % (Auto) 92 % (37-80); Nucleated Red Blood Cell # 0.00 Thou/mm3 (0.00-0.00); Nucleated Red Blood Cell % 0 /100 WBC (0); RDW Standard Deviation 48.4 fL (36.4-46.3); Red Blood Count 5.20 Miln/mm3 (4.00-5.20); White Blood Count 7.9 Thou/mm3 (3.6-11.0)
[2025-02-06 07:18] LABS: Platelet Count 68 Thou/mm3 (140-440)
[2025-02-06 07:26] LABS: Alanine Aminotransferase 13 U/L (10-49); Albumin, Serum 3.5 gm/dL (3.4-4.8); Albumin/Globulin Ratio 1.8 (1.2-2.2); Alkaline Phosphatase 82 U/L (46-116); Anion Gap 8 (7-16); Aspartate Amino Transferase 22 U/L (0-34); BUN/Creatinine Ratio 19 Ratio (12-20); Bilirubin,Total 0.7 mg/dL (0.3-1.2); Blood Urea Nitrogen 23 mg/dL (9-23); Calcium 9.5 mg/dL (8.3-10.6); Calcium (Corrected) 9.9 mg/dL (8.5-10.1); Carbon Dioxide 38.0 mMol/L (20.0-31.0); Chloride 96 mMol/L (98-107); Creatinine (Component) 1.2 mg/dL (0.6-1.3); Estimated Creatinine Clearance 57.3 mL/min (>60); Globulin 1.9 gm/dL (2.3-3.5); Glucose 103 mg/dL (74-106); Magnesium 2.0 mg/dL (1.6-2.6); Osmolality,Calculated 286 (275-295); Phosphorous 4.3 mg/dL (2.4-5.1); Potassium 3.7 mMol/L (3.4-5.1); Sodium 142 mMol/L (136-145); Total Protein 5.4 gm/dL (5.7-8.2); eGFR 52 See Note
[2025-02-06 08:34] LABS: Slide Review Platelets confirmed
--- NOTE | 2025-02-06 09:06 | PC.SS ---
Follow up note: ICU down grade. On IV antibiotic. On IV steroids. Receiving breathing treatments. Pt will return home upon dc.
[2025-02-06] MEDS: METOPROLOL SUCCINATE XL 25 MG TABCR PO (09:14)
[2025-02-06] MEDS: OSELTAMIVIR 75 MG CAPSULE PO ×2 (09:15→20:06)
[2025-02-06] MEDS: DOXYCYCLINE INJ 100 MG in SODIUM CHLORIDE 0.9% (POP) 100 ML IV (09:17)
[2025-02-06] MEDS: cefTRIAXone/D5w 1gm IV premix 1 GM/50 ML BAG IV (09:17)
[2025-02-06] MEDS: APIXABAN 2.5 MG TABLET 5 MG PO ×2 (09:17→20:07)
[2025-02-06] MEDS: FUROSEMIDE INJ 10 MG/ML 4ML VIAL 40 MG IVP (09:18)
[2025-02-06] MEDS: NICOTINE PATCH 21 MG/24 HR PATCH.TD24 TOP (09:19)
[2025-02-06] MEDS: AMIODARONE HCL 200 MG TABLET PO (12:15)
--- NOTE | 2025-02-06 13:28 | ESPR_ITS ---
<Statement entered by Jasmeet Nathan MD - 02/09/25 09:09> I reviewed above note and agree with findings and plans. I have also personally examined the patient with medicine team and went over assessment and plan with medical team including internet manager and resident physician. <Statement entered by Deonte López MD - 02/06/25 15:48> Patient is seen at bedside this morning. Patient is currently saturating on 5 L oxygen via nasal cannula. Continues to endorse improvement in her shortness of breath and wheezing. Patient does have a history of A-fib and heart rate is elevated therefore will resume home amiodarone 200 mg daily. Will also increase metoprolol XL from 25 mg to 50 mg. Patient is currently on IV antibiotics and scheduled DuoNebs as well as Solu-Medrol 40 mg daily. Will continue to monitor patient's clinical improvement and anticipate discharge tomorrow. Patient was seen and examined by me personally. I have directly supervised and reviewed documentation by the team resident and agree with its findings. ------- Plan of care was discussed with the attending, Dr. Jac López, PGY-2 Documentation for date of: 02/06/25 Subjective Subjective Interval history: Overnight events: No acute events overnight. Patient was seen and examined at bedside. AM vitals and labs reviewed. Patient was sitting up in bed and greeted excitedly. Breathing comfortably on 5 L nasal cannula. Blood pressure soft at 98/58 and heart rate elevated at 119. No complaints at this time. Continue Rocephin and doxycycline, Lasix 40 mg twice daily, DuoNebs every 4 and methylprednisolone 40 mg, and Seroquel 50 mg at night. Increased metoprolol to 50 mg daily. Started amiodarone 200 mg daily. Possible discharge tomorrow. Review of systems otherwise negative except for what is mentioned above. Exam Vital Signs Temp Pulse Resp BP Pulse Ox O2 Del Method O2 Flow Rate 97.3 F 114 H 23 H 104/85 H 99 High Flow Nasal Cannula 4 02/06/25 12:00 02/06/25 12:15 02/06/25 12:00 02/06/25 12:15 02/06/25 12:00 02/06/25 12:00 02/06/25 12:00 FiO2 40 02/05/25 19:49 Narrative Exam Physical Exam: General: Alert, no acute distress. Skin: Warm, dry, intact, no obvious rash. Head: Normocephalic, atraumatic. Eye: Normal conjunctiva, PERRL. Cardiovascular: Tachycardic and regular rhythm, no murmur, +S1/S2. Respiratory: Lungs are clear to auscultation, respirations unlabored, no crackles, periodic diffuse wheezing. Gastrointestinal: Soft, nontender, non-distended. No guarding or rebound tenderness. Extremities: Trace edema BLE, no cyanosis, no clubbing. 2+ radial pulse bilaterally, 2+ pedal pulse bilaterally. Neuro: No focal deficits observed. Conversant, moving all extremities. No overt cerebellar signs/incoordination. Psychiatric: Cooperative, appropriate affect. Objective Labs 02/06/25 05:55 02/06/25 05:55 Labs: Laboratory Results - last 24 hr 02/06/25 05:55 WBC 7.9 D RBC 5.20 Hgb 13.8 Hct 47.0 H MCV 90 MCH 26.5 MCHC 29.4 L RDW Std Deviation 48.4 H Plt Count 68 L Neut % (Auto) 92 H Lymph % (Auto) 4 L [place] % (Auto) 3 Eos % (Auto) 0 Baso % (Auto) 0 Neut # (Auto) 7.3 Lymph # (Auto) 0.3 L [place] # (Auto) 0.3 Eos # (Auto) 0.0 Baso # (Auto) 0.0 Immature Gran # (Auto) 0.03 H Absolute Nucleated RBC 0.00 Immature Gran % 0 Nucleated RBC % 0 Sodium 142 Potassium 3.7 Chloride 96 L Carbon Dioxide 38.0 H Anion Gap 8 BUN 23 Creatinine 1.2 Estim Creat Clear Calc 57.3 L eGFR 52 L BUN/Creatinine Ratio 19 Glucose 103 Calculated Osmolality 286 Calcium 9.5 Corrected Calcium 9.9 Phosphorus 4.3 Magnesium 2.0 Total Bilirubin 0.7 AST 22 ALT 13 Alkaline Phosphatase 82 Total Protein 5.4 L Albumin 3.5 Globulin 1.9 L Albumin/Globulin Ratio 1.8 Misc Test Result Platelets confirmed ABG Interpretation ABG results: 01/31/25 01/31/25 01/31/25 07:20 08:33 10:48 ABG pH 7.16 L* 7.12 L* 7.13 L* ABG pCO2 104 H* 114 H* D 107 H* ABG pO2 325 H 297 H D 109 H D ABG HCO3 37 H 37 H 35 H ABG O2 Saturation 101 H 101 H 98 ABG Base Excess 5 H 4 H 3 01/31/25 01/31/25 02/01/25 13:49 18:13 04:34 ABG pH 7.13 L* 7.34 L D 7.36 ABG pCO2 104 H* 63 H D 60 H ABG pO2 54 L* D 103 D 106 ABG HCO3 35 H 34 H 34 H ABG O2 Saturation 83 L 99 H 99 H ABG Base Excess 3 6 H 7 H 02/02/25 02/02/25 02/03/25 04:38 12:42 04:25 ABG pH 7.38 7.32 L 7.43 D ABG pCO2 60 H 72 H* D 61 H D ABG pO2 67 L D 74 L 60 L ABG HCO3 36 H 37 H 40 H ABG O2 Saturation 94 94 92 ABG Base Excess 9 H 8 H 14 H 02/03/25 02/03/25 02/03/25 10:55 14:29 18:13 ABG pH 7.44 7.47 H 7.44 ABG pCO2 59 H 60 H 66 H ABG pO2 65 L 65 L 80 L ABG HCO3 40 H 43 H 44 H ABG O2 Saturation 94 94 97 ABG Base Excess 13 H 16 H 17 H 02/04/25 02/04/25 02/04/25 00:46 07:26 17:28 ABG pH 7.43 7.43 7.47 H ABG pCO2 67 H 66 H 67 H ABG pO2 84 68 L 58 L* ABG HCO3 44 H 44 H 48 H ABG O2 Saturation 97 94 91 ABG Base Excess 17 H 16 H 20 H 02/05/25 07:12 ABG pH 7.44 ABG pCO2 65 H ABG pO2 65 L ABG HCO3 44 H ABG O2 Saturation 93 ABG Base Excess 16 H Quality Measures Quality Measures VTE prophylaxis Assessment & Plan Assessment Current Active Medications: Generic Name Dose Route Start Last Admin Trade Name Freq PRN Reason Stop Dose Admin Acetaminophen 650 mg 01/31/25 12:25 02/04/25 20:46 Acetaminophen 325 Mg Tablet PO 03/02/25 12:24 650 mg Q4HR PRN Administration PAIN SCALE 1-3 (mild Albuterol/Ipratropium 3 ml 02/05/25 19:00 02/06/25 10:26 Albuterol/Ipratropium (Duoneb) Rt Kaitlynn 3 Ml Nebu INH 03/07/25 18:59 3 ml Q4HRRT ALIA Administration Albuterol/Ipratropium 3 ml 02/06/25 09:03 Albuterol/Ipratropium (Duoneb) Rt Kaitlynn 3 Ml Nebu INH 03/08/25 09:02 Q2HR PRN SHORTNESS OF BREATH OR WHEEZE Amiodarone HCl 200 mg 02/06/25 10:15 02/06/25 12:15 Amiodarone Hcl 200 Mg Tablet PO 03/08/25 10:14 200 mg QDAY ALIA Administration Apixaban 5 mg 02/05/25 10:45 02/06/25 09:17 Apixaban 2.5 Mg Tablet PO 03/07/25 10:44 5 mg BID ALIA Administration Doxycycline Hyclate 100 mg 02/06/25 21:00 Doxycycline 100 Mg Tablet PO 02/09/25 20:59 BID ALIA Protocol Furosemide 40 mg 02/05/25 09:00 02/06/25 09:18 Furosemide Inj 10 Mg/Ml 4ml Vial IVP 03/07/25 08:59 40 mg QDAY ALIA Administration Ceftriaxone Sodium/Dextrose 1 gm in 50 mls @ 100 mls/hr 01/31/25 12:42 02/06/25 09:17 Rocephin/D5w 1gm Iv Premix IV 02/07/25 12:41 100 mls/hr QDAY ALIA Administration Methylprednisolone Sodium Succinate 40 mg 02/05/25 18:15 02/06/25 09:18 Methylprednisolone Sod Succ 40 Mg Vial IVP 02/12/25 18:14 40 mg QDAY ALIA Administration Metoprolol Succinate 50 mg 02/07/25 09:00 Metoprolol Succinate Xl 25 Mg Tabcr PO 03/09/25 08:59 QDAY ALIA Mupirocin 0 gm 02/02/25 14:00 02/06/25 13:03 Mupirocin Oint 2% 15 Gm Tube TOP 02/09/25 13:59 1 appl TID ALIA Administration Nicotine 21 mg 02/05/25 18:15 02/06/25 09:19 Nicotine Patch 21 Mg/24 Hr Patch.Td24 TOP 03/07/25 18:14 21 mg QDAY ALIA Administration Oseltamivir Phosphate 75 mg 02/01/25 09:30 02/06/25 09:15 Oseltamivir 75 Mg Capsule PO 02/08/25 09:29 75 mg BID ALIA Administration Pantoprazole Sodium 40 mg 01/31/25 12:30 02/06/25 09:16 Pantoprazole Inj 40 Mg Vial IVP 03/02/25 12:29 40 mg QDAY ALIA Administration Quetiapine Fumarate 50 mg 02/05/25 21:00 02/05/25 20:23 Quetiapine Fumarate 25 Mg Tablet PO 03/07/25 20:59 50 mg HS ALIA Administration Plan Mrs. Bland is a 59 year old female with a history of bipolar disorder, schizophrenia, HFrEF (EF 40-45% 2023), A-fib (on Eliquis), COPD, asthma, past methamphetamine abuse, and active smoking presented to [facility] ED on 01/31 for shortness of breath and increased work of breathing. Patient was admitted to ICU due to persistent respiratory acidosis on BiPAP and somnolence, resulting in intubation to protect airways. Patient was downgraded to telemetry on 02/05 for improvement of respiratory status. #Acute hypoxic respiratory failure 2/ #Acute CHF exacerbation #HFrEF (EF 40-45% 2023) #Respiratory acidosis (resolved) Patient presented to ED with worsening shortness of breath and increased work of breathing. Patient had not received medication for CHF about 2 weeks. Bilateral lower extremity edema was noted on presentation. Patient's last echocardiogram was performed on October 2023, which had estimated ejection fraction of 40 to 45%. BNP on presentation 560. Required intubation to protect her airways in the ED, which prompted admission to ICU. Patient successfully diuresed in ICU with furosemide 40mg IV daily. ? Continue furosemide 40 mg IV push daily ? Pending echocardiogram read, according to ICU team, echocardiogram was performed but the read has not been uploaded ? Patient may benefit from outpatient echocardiogram if patient remains stable and read remains unuploaded #COPD exacerbation #History of asthma #Flu positive #MRSA positive nares #Hospital acquired pneumonia Patient presents to ED with worsening shortness of breath and increased work of breathing. Patient has a history of COPD and asthma. Patient was positive for flu and MRSA. Initial chest x-ray in ED showed no lobar pneumonia, but subsequent chest x-rays after patient was admitted to ICU showed formation of pneumonia starting at left lung base and 02/02, which progressed to significant bibasilar pneumonia on 02/03. Sputum culture of endotracheal tube was positive for 3+ gram-positive cocci, 1+ gram-positive rods, 3+ blood blood cells, and 2+ mixed oral vijay. Patient was also positive for flu A and MRSA nasal swab. ICU team started patient on Tamiflu 75 mg twice daily, ceftriaxone 1 g, and doxycycline 100 mg twice daily. Patient stated that she is on 2-4L of O2 at home. ? Continue patient on ceftriaxone 1 g (01/31--) ? Continue patient on doxycycline 100 mg twice daily (02/02--) ? Continue patient on Tamiflu 75 mg twice daily (02/01-02/08) ? Started patient on DuoNebs 3 mL every 4 hour ? Started patient on Solu-Medrol 40 mg IVP daily #A-fib, RVR, on Eliquis Patient has a history of A-fib on Eliquis, though the patient does not recall ever being diagnosed with A-fib when asked. Most recent EKG on 02/04 prior to ICU downgrade showed atrial fibrillation with rapid ventricular response, borderline heart rate of 100. ? Continue Eliquis 5 mg twice daily ? Started Metoprolol 50 mg daily ?Started amiodarone 200 mg daily ? Pending med rec to restart patient on rate control medication #Acute kidney injury, mild (resolved) Patient presented with BUN 26, creatinine 1.4, and GFR 43 on 01/31. Her creatinine was elevated from baseline of 1.0. This is most likely due to fluid overload, cardiorenal syndrome, as a result of the patient's CHF exacerbation. In the ICU, the patient's BUN, creatinine, and GFR all returned to their baseline. ? Will continue to monitor with daily labs ? Continue with appropriate diuresis #Subclinical hypothyroidism Patient noted to have TSH of 0.2 and free T4 of 0.97. Patient does not appear symptomatic at this time. ? No intervention indicated at this time ? Patient to follow-up with outpatient PCP #Thrombocytopenia Patient came in with platelet of 83, which increased to 128, but has since been downtrending. This is potentially drug-induced secondary to ceftriaxone or potentially nutritional deficiencies. Infection was considered however this is less likely given that the patient has been on antibiotics, has improvement of her pneumonia, and is still downtrending on platelets. ? Continue to monitor with daily labs ? Will continue Eliquis as platelets are greater than 50 ? Will monitor for active signs of bleeding ? Will transfuse if platelets below 20 #Agitation (resolved) Patient was noted to have delirium but required multiple doses of olanzapine for management. ICU team eventually started patient on Seroquel, which seem to have significantly helped with the agitation. Patient initially received 25 mg of Seroquel, but was still agitated, requiring 2 mg of midazolam one-time dose. The patient was eventually increased to 50 milligrams of Seroquel, which seemed to be effective at keeping the patient calm. ? Will continue Seroquel 50 mg at night DVT Prophylaxis: Eliquis GI Prophylaxis: Protonix Bowel: N/A Diet: Dysphagia 2 [place]: N/A Lines: Peripheral IV Antibiotics: Ceftriaxone (01/31--) & Doxycycline (02/02--) Code Status: FULL Reason for Hospitalization: Persistent respiratory acidosis Other Barriers to Discharge: N/A Patient plan of care was discussed with the senior resident Dr. López (PGY-2) and attending physician Dr. Nathan. Edd Solis, PGY1
[2025-02-06] MEDS: DOXYCYCLINE 100 MG TABLET PO (20:07)
[2025-02-06] MEDS: MELATONIN 3 MG TABLET 10 MG PO (23:34)
[2025-02-07] VITALS (9 sets, daily range): BP systolic 100–133; BP diastolic 72–98; PULSE 85–138; RESP 16–28; TEMP 36.5–37.4; O2SAT 88–100; BMI 33.7
[2025-02-07] MEDS: ALBUTEROL/IPRATROPIUM (Duoneb) RT SOL 3 ML NEBU INH ×3 (02:53→10:31)
[2025-02-07] MEDS: MUPIROCIN OINT 2% 15 GM TUBE TOP (06:20)
[2025-02-07 06:26] LABS: Basophils # (Auto) 0.0 Thou/mm3 (0.0-0.2); Basophils % (Auto) 0 % (0-2.5); Eosinophils # (Auto) 0.0 Thou/mm3 (0.0-0.5); Eosinophils % (Auto) 0 % (0-10); Hematocrit 45.8 % (36.0-46.0); Hemoglobin 13.3 g/dL (12.0-16.0); Immature Granulocytes Auto 0.05 Thou/mm3 (0.00-0.00); Lymphocytes # (Auto) 0.8 Thou/mm3 (1.0-4.8); Lymphocytes % (Auto) 9 % (10-50); Mean Corpuscular HGB Conc 29.0 g/dl (31.0-37.0); Mean Corpuscular Hemoglobin 26.6 pg (25.0-35.0); Mean Corpuscular Volume 92 fL (80-100); Monocytes # (Auto) 0.9 Thou/mm3 (0.0-0.8); Monocytes % (Auto) 10 % (0-12); Neutrophils # (Auto) 7.6 Thou/mm3 (1.8-7.7); Neutrophils % (Auto) 81 % (37-80); Nucleated Red Blood Cell # 0.00 Thou/mm3 (0.00-0.00); Nucleated Red Blood Cell % 0 /100 WBC (0); RDW Standard Deviation 49.7 fL (36.4-46.3); Red Blood Count 5.00 Miln/mm3 (4.00-5.20); White Blood Count 9.3 Thou/mm3 (3.6-11.0)
[2025-02-07 06:40] LABS: Platelet Count 74 Thou/mm3 (140-440)
[2025-02-07 06:51] LABS: Alanine Aminotransferase 12 U/L (10-49); Albumin, Serum 4.1 gm/dL (3.4-4.8); Albumin/Globulin Ratio 2.0 (1.2-2.2); Alkaline Phosphatase 81 U/L (46-116); Anion Gap 9 (7-16); Aspartate Amino Transferase 26 U/L (0-34); BUN/Creatinine Ratio 14 Ratio (12-20); Bilirubin,Total 0.9 mg/dL (0.3-1.2); Blood Urea Nitrogen 17 mg/dL (9-23); Calcium 10.4 mg/dL (8.3-10.6); Calcium (Corrected) 10.4 mg/dL (8.5-10.1); Carbon Dioxide 38.7 mMol/L (20.0-31.0); Chloride 94 mMol/L (98-107); Creatinine (Component) 1.2 mg/dL (0.6-1.3); Estimated Creatinine Clearance 58.8 mL/min (>60); Globulin 2.1 gm/dL (2.3-3.5); Glucose 95 mg/dL (74-106); Magnesium 2.2 mg/dL (1.6-2.6); Osmolality,Calculated 284 (275-295); Phosphorous 2.3 mg/dL (2.4-5.1); Potassium 3.2 mMol/L (3.4-5.1); Sodium 142 mMol/L (136-145); Total Protein 6.2 gm/dL (5.7-8.2); eGFR 52 See Note
[2025-02-07] MEDS: NAPH,KPH MBDB 1 PACKET (1.5 GM) PO (08:13)
[2025-02-07] MEDS: FUROSEMIDE INJ 10 MG/ML 4ML VIAL 40 MG IVP (08:13)
[2025-02-07] MEDS: NICOTINE PATCH 21 MG/24 HR PATCH.TD24 TOP (08:13)
[2025-02-07] MEDS: cefTRIAXone/D5w 1gm IV premix 1 GM/50 ML BAG IV (08:13)
[2025-02-07] MEDS: DOXYCYCLINE 100 MG TABLET PO (08:14)
[2025-02-07] MEDS: OSELTAMIVIR 75 MG CAPSULE PO (08:14)
[2025-02-07] MEDS: AMIODARONE HCL 200 MG TABLET PO (08:15)
[2025-02-07] MEDS: PANTOPRAZOLE 40 MG TABLET PO (08:15)
[2025-02-07] MEDS: METOPROLOL SUCCINATE XL 25 MG TABCR 50 MG PO (08:15)
[2025-02-07] MEDS: APIXABAN 2.5 MG TABLET 5 MG PO (08:16)
[2025-02-07] MEDS: POTASSIUM CHL 10 mEq IVPB 10 MEQ/100 ML BAG 100 MEQ IV ×2 (09:03→10:36)
[2025-02-07 09:09] LABS: Slide Review Platelets confirmed
--- NOTE | 2025-02-07 09:53 | ESDS_ITS ---
<Statement entered by Jasmeet Nathan MD - 02/20/25 07:42> I reviewed above note and agree with findings and plans. I have also personally examined the patient with medicine team and went over assessment and plan with medical team including international marketing coordinator and resident physician. Planned Discharge Date 02/07/25 DS: Providers Provider Date of admission: 01/31/25 12:25 Primary care physician: Physician No Primary/Family Admitting Provider: Trina Leo MD Attending Provider on Admission: Jasmeet Nathan MD Consults: 02/04/25 08:53 Referral Speech Therapy Stat Comment: 02/06/25 08:31 PT [Referral Physical Therapy] Routine Comment: Needs eval for discharge placement Physician Instructions: Attending Provider on DC: Jasmeet Nathan MD Discharging Provider: RESIDENT Ammy Anticipated date of discharge: 02/07/25 DS: Diagnosis Problem List Completed Was Problem List Reviewed/Reconciled?: Yes Hospital Course Hospital Course Hospital course: Reason for hospitalization:?Acute hypercapnic respiratory failure Summary: This patient is a 59 year old female with a history of bipolar disorder, schizophrenia, HFrEF (EF 40-45% 2023), A-fib (on Eliquis), COPD, asthma, past methamphetamine abuse, and active smoking presented to [facility] ED on 01/31 for shortness of breath and increased work of breathing. According to the patient, she had not received her medication for about 2 weeks. In the ED, patient had oxygen saturation of 88% on 3 L with an ABG showing pH of 7.16 and PCO2 104. The patient was started on BiPAP, but this did not improve her respiratory distress and acidosis. The patient was somnolent throughout this ED course. Patient was admitted to ICU due to persistent respiratory acidosis on BiPAP and somnolence, resulting in intubation to protect airways. The patient was started on ceftriaxone and azithromycin due to concerns of possible pneumonia and star joey diuresis given patient's fluid overload status. CT chest on 02/01 significant for new bilateral infiltrates as noted by ICU team, and patient was started on Tamiflu due to testing positive for Influenza A. In addition, sputum Gram stain showed 3+ gram-positive cocci and 1+ gram-positive rods, confirming suspicion for community-acquired pneumonia. The patient was extubated on 02/03 to BiPAP. On 02/04, the patient had their azithromycin swapped to doxycycline. The patient stayed in the ICU until 02/05 due to difficulty weaning off BiPAP and excessive agitation, but patient was eventually transferred to medical floor on 02/05 after successfully weaning the patient to nasal cannula and successful management of agitation with Seroquel. Patient was kept on medical floor until 02/07 to wean the patient to 2 to 4 L of oxygen nasal cannula, which is just amount that she uses at home. On 02/07, the patient was breathing comfortably on 1L oxygen nasal cannula and back to baseline mentation. Patient had stable vitals, stable labs, and was alert and oriented to person and place. The patient was medically cleared to discharge back home. Discharge Recommendations: - Follow up with PCP within 1 week of discharge - Continue rest of medications as previously prescribed - Return to the ED or call EMS if symptoms return and/or worsen - Take Ellipta anoro once a day for COPD, use albuterol inhaler as needed, complete steroid taper - Continue Lasix 40mg daily, obtain cardiology referral outpatient and follow up with a can solderer, obtain ECHO - STOP SMOKING, use nicotine patches - Continue amiodarone, metoprolol and eliuquis as below for atrial fibrillaion, follow up with a can solderer outpatient for holter monitoring. - [facility] (phone# [phone]) For home Oxygen. If you don't have a PCP, you can make an appointment at the [facility]: [address] [place], [place] [id number] Hospital Diagnoses: #Acute hypercapnic respiratory failure #Acute CHF exacerbation #HFrEF (EF 40-45% 2023) #Respiratory acidosis (resolved) #COPD exacerbation #History of asthma #Flu positive, MRSA positive nares #Community acquired pneumonia #A-fib, RVR, on Eliquis #Acute kidney injury, mild (resolved) #Subclinical hypothyroidism #Thrombocytopenia #Agitation (resolved) Patient plan of care was discussed with the senior resident Dr. López (PGY-2) and attending physician Dr. Nathan. Edd Solis, PGY-1 Status at Discharge Overall status at discharge: patient is back to baseline Time Spent with Patient Time attestation: Total time spent providing and/or coordinating discharge services: Time spent: Greater than 30 minutes Exam Vital Signs Temp Pulse Resp BP Pulse Ox O2 Del Method O2 Flow Rate 99.3 F 91 16 133/98 H 100 Nasal Cannula 4 02/07/25 08:00 02/07/25 08:15 02/07/25 08:00 02/07/25 08:15 02/07/25 08:00 02/07/25 08:00 02/07/25 08:00 FiO2 40 02/05/25 19:49 Narrative Exam Physical Exam: General: Alert, no acute distress. Skin: Warm, dry, intact, no obvious rash. Head: Normocephalic, atraumatic. Eye: Normal conjunctiva, PERRL. Cardiovascular: Tachycardic and regular rhythm, no murmur, +S1/S2. Respiratory: Lungs are clear to auscultation, respirations unlabored, no crackles, periodic diffuse wheezing. Gastrointestinal: Soft, nontender, non-distended. No guarding or rebound tenderness. Extremities: Trace edema BLE, no cyanosis, no clubbing. 2+ radial pulse bilaterally, 2+ pedal pulse bilaterally. Neuro: No focal deficits observed. Conversant, moving all extremities. No overt cerebellar signs/incoordination. Psychiatric: Cooperative, appropriate affect. Discharge Plan Plan Patient Disposition: HOME (Self Care) Patient condition on transfer: Stable Care Plan Goals: -Take Ellipta anoro once a day for COPD, use albuterol inhaler as needed, complete steroid taper -Continue Lasix 40mg daily, obtain cardiology referral outpatient and follow up with a can solderer, obtain ECHO -STOP SMOKING, use nicotine patches -Continue amiodarone, metoprolol and eliuquis as below for atrial fibrillaion, follow up with a can solderer outpatient for holter monitoring. -Follow up with PCP in 1 week -Return to ED if syptom worsen [facility] (phone# [phone]) For home Oxygen. Prescriptions/Referrals Prescriptions/Med Rec: New amiodarone 200 mg Tablet 200 mg PO QDAY 30 Days Qty: 30 0RF apixaban 5 mg tablet 5 mg PO BID 30 Days Qty: 60 0RF nicotine 21 mg/24 hr Patch 24 Hour 21 mg top QDAY 7 Days Qty: 7 0RF quetiapine 50 mg tablet 50 mg PO HS 15 Days Qty: 15 0RF prednisone 5 mg tablet See Taper PO QDAY Qty: 19 0RF Taper: Prednisone Taper 20 mg DAILY for 2 Days and 0 Hour 10 mg DAILY for 2 Days and 0 Hour 5 mg DAILY for 7 Days and 0 Hour umeclidinium-vilanterol [Anoro Ellipta] 62.5-25 mcg/actuation blister with device 1 inh inhalation Q24H Qty: 60 0RF albuterol sulfate 90 mcg/actuation HFA aerosol inhaler 1 inh inhalation QID PRN (Reason: shortness of breath or wheezing) Qty: 8.5 0RF Changed furosemide 20 mg tablet 40 mg PO QDAY 30 Days Qty: 30 1RF metoprolol succinate 25 mg capsule,sprinkle,ER 24hr 50 mg PO QDAY 30 Days Qty: 30 1RF Discontinued albuterol sulfate 90 mcg/actuation HFA aerosol inhaler 1 inh inhalation QID PRN (Reason: shortness of breath or wheezing) Qty: 8.5 0RF methylprednisolone [Medrol (Severiano)] 4 mg tablets,dose pack 4 mg PO QAM Qty: 21 0RF Referrals: No Primary/Family,Physician [Primary Care Provider] - Patient/Caregiver Discharge Instructions Discharge Activity: activity as tolerated Education Materials: Asthma and COPD, AFL/Afib Print Language: Kazakh Stand Alone Forms: Joan Award Info., Patient Portal Info Letter Discharge Order Discharge Orders: Discharge (Routine); Ordered 02/07/25 Ordered By: Deonte López Quality Discharge Quality Measures VTE prophylaxis
--- NOTE | 2025-02-07 12:20 | PC.SS ---
SS met with pt who states she has home O2 but is unable to recall name of the DME company. Pt provided her sister's phone# [phone]. SS spoke to Liset, patient's sister who explained she is unable to recall name of DME company. Liset provided patient's significant other, Richie (phone# [phone]). SS spoke to Richie who states pt has small O2 tank which he will bring to hospital. Small O2 tank is at bedside and the DME company is [facility] (phone# [phone]). Pt and are aware DME phone# is on O2 tank and contact them when pt is requiring O2 tank refills. SS has called [facility] and spoke to Thor who is aware pt is requiring O2 tank refills. Per Thor, they will deliver O2 tanks tomorrow to patient's address. SS has provided patient's address [address] [place] [address] in [place]. SS contacted Vira from patient registration to update patient's facesheet with address provided by significant other and his correct phone#.
--- NOTE | 2025-02-07 14:24 | PC.SS ---
SS received call pt is requiring clothes and is preparing to be d/c. SS provided pt with a shirt and shorts.
[2025-02-08 16:03] LABS: Folate 21.06 ng/mL (>5.38); Vitamin B12 311 pg/mL (211-911)
== END 2025-02-07 13:35 | disposition home or self-care (01) | DRG 140 ==
LOC: SERX 12:17 → SERHOLD 12:36 → S2SX 14:30 → S2NX 02-05 16:43
PROVIDERS: Student in an Organized Health Care Education/Training Program; Admitting Provider Internal Medicine; Emergency Provider Emergency Medicine; Visit Provider Internal Medicine
DX: J44.1 Chronic obstructive pulmonary disease with (acute) exacerbation (principal); F31.9 Bipolar disorder, unspecified; D69.6 Thrombocytopenia, unspecified; E03.8 Other specified hypothyroidism; F17.210 Nicotine dependence, cigarettes, uncomplicated; G93.40 Encephalopathy, unspecified; E11.9 Type 2 diabetes mellitus without complications; E87.29 Other acidosis; I48.20 Chronic atrial fibrillation, unspecified; J18.9 Pneumonia, unspecified organism; I50.22 Chronic systolic (congestive) heart failure; J44.0 Chronic obstructive pulmonary disease with (acute) lower respiratory infection; F20.9 Schizophrenia, unspecified; J96.21 Acute and chronic respiratory failure with hypoxia; J96.22 Acute and chronic respiratory failure with hypercapnia; N17.9 Acute kidney failure, unspecified; Y95 Nosocomial condition; Z22.322 Carrier or suspected carrier of Methicillin resistant Staphylococcus aureus; Z78.1 Physical restraint status; Z79.01 Long term (current) use of anticoagulants; Z79.899 Other long term (current) drug therapy; J10.00 Influenza due to other identified influenza virus with unspecified type of pneumonia; Z88.0 Allergy status to penicillin
CPT/HCPCS: 36415; 36600; 70450; 71045; 80048; 80053; 80061; 80069; 80307; 80320; 81001; 82607; 82746; 82803; 83036; 83605; 83735; 83880; 84100; 84145; 84439; 84443; 85025; 85610; 85730; 87040; 87081; 87205; 87400; 87811; 92610; 93005; 94002; 94003; 94640; 94660; 96365; 96366; 96375; 96376; 97162; 99284; A4216; A9270; J0330; J0456; J0696; J1120; J1200; J1630; J1650; J1815; J1938; J2250; J2358; J2470; J2704; J2919; J3010; J3475; J3480; J3490; J7050; J7512; G0480; J2359

== ENCOUNTER 2025-02-18 09:52 | Emergency (ER) | payer MEDICAID, SELFPAY ==
[2025-02-18 09:53] VITALS: BMI 31.3
[2025-02-18 10:32] VITALS: BP 131/94; PULSE 105; RESP 19; TEMP 37.2; O2SAT 95
--- NOTE | 2025-02-18 10:58 | XR_ITS ---
Examination: CT right elbow with intravenous contrast. 2-D sagittal reconstructions. 2-D coronal reconstructions. 3-D reconstructions. Date and time of exam:February 18, 2025 1356 hrs. Indications: Patient states I infection at IV site in the right arm redness swelling and pain this week CTDI: vol (mGy):5.88 DLP: (mGycm):1399. Technique: Multiple 1.25 mm axial sections of the right elbow post intravenous administration 60 cc Isovue-370. have been obtained. 2-D sagittal and coronal reconstructions have been obtained. 3-D reconstructions have been obtained. Low dose protocols were performed. One or more of the following dose reduction techniques were used; automated exposure control, adjustment of the mA and/or KV according to patient size, use of iterative reconstruction technique. Findings: No cortical bone destruction involving distal humerus, radius or ulna Cellulitis pattern in the soft tissue posterior elbow as well as anterior lateral soft tissue elbow with skin thickening most prominent dorsal to the distal humerus No soft tissue abscess No foreign body Impression: Cellulitis pattern involving the elbow as above Negative for osteomyelitis Negative for fluid-filled soft tissue abscess
--- NOTE | 2025-02-18 11:00 | EDRME_ITS ---
Rapid Medical Screening Exam RME Arrival date/time: 02/18/25 09:52 Chief Complaint: Extremity Problem,Nontraumatic Time Seen by Provider: 02/18/25 10:55 Vital signs: Vital Signs Temperature 98.9 F 02/18/25 10:32 Pulse Rate 105 H 02/18/25 10:32 Respiratory Rate 19 02/18/25 10:32 Blood Pressure 131/94 H 02/18/25 10:32 Pulse Oximetry (%) 95 02/18/25 10:32 Oxygen Delivery Method Room Air 02/18/25 10:32 Vital signs reviewed by provider: Yes RME Narrative: Patient is a 59-year-old female with medical history notable for recent hospitalization for COPD exacerbation discharged on February 07 is in emerged from concerns for nonhealing wound on the right upper extremity. Patient states she had an IV placed in her right upper arm, has gone home and it has not healed. It itches, and has surrounding redness and some discharge now. Denies fevers chills nausea vomiting chest pain shortness of breath abdominal pain dysuria hematuria. 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 Previously smoked. Denies any trauma to the area
[2025-02-18 12:24] LABS: Basophils # (Auto) 0.0 Thou/mm3 (0.0-0.2); Basophils % (Auto) 1 % (0-2.5); Eosinophils # (Auto) 0.1 Thou/mm3 (0.0-0.5); Eosinophils % (Auto) 2 % (0-10); Hematocrit 46.3 % (36.0-46.0); Hemoglobin 13.1 g/dL (12.0-16.0); Immature Granulocytes Auto 0.02 Thou/mm3 (0.00-0.00); Lymphocytes # (Auto) 1.3 Thou/mm3 (1.0-4.8); Lymphocytes % (Auto) 21 % (10-50); Mean Corpuscular HGB Conc 28.3 g/dl (31.0-37.0); Mean Corpuscular Hemoglobin 26.2 pg (25.0-35.0); Mean Corpuscular Volume 93 fL (80-100); Monocytes # (Auto) 0.4 Thou/mm3 (0.0-0.8); Monocytes % (Auto) 7 % (0-12); Neutrophils # (Auto) 4.4 Thou/mm3 (1.8-7.7); Neutrophils % (Auto) 70 % (37-80); Nucleated Red Blood Cell # 0.00 Thou/mm3 (0.00-0.00); Nucleated Red Blood Cell % 0 /100 WBC (0); Platelet Count 128 Thou/mm3 (140-440); RDW Standard Deviation 52.7 fL (36.4-46.3); Red Blood Count 5.00 Miln/mm3 (4.00-5.20); White Blood Count 6.2 Thou/mm3 (3.6-11.0)
[2025-02-18 12:37] LABS: B-Type Natriuretic Peptide 616 pg/mL (0-100)
[2025-02-18 12:38] LABS: Alanine Aminotransferase 31 U/L (10-49); Albumin, Serum 4.0 gm/dL (3.4-4.8); Albumin/Globulin Ratio 2.0 (1.2-2.2); Alkaline Phosphatase 105 U/L (46-116); Anion Gap 6 (7-16); Aspartate Amino Transferase 23 U/L (0-34); BUN/Creatinine Ratio 17 Ratio (12-20); Bilirubin,Total 0.8 mg/dL (0.3-1.2); Blood Urea Nitrogen 15 mg/dL (9-23); Calcium 10.2 mg/dL (8.3-10.6); Calcium (Corrected) 10.2 mg/dL (8.5-10.1); Carbon Dioxide 35.9 mMol/L (20.0-31.0); Chloride 104 mMol/L (98-107); Creatinine (Component) 0.9 mg/dL (0.6-1.3); Estimated Creatinine Clearance 76.9 mL/min (>60); Globulin 2.0 gm/dL (2.3-3.5); Glucose 79 mg/dL (74-106); Osmolality,Calculated 290 (275-295); Potassium 4.6 mMol/L (3.4-5.1); Sodium 146 mMol/L (136-145); Total Protein 6.0 gm/dL (5.7-8.2); eGFR > 60 See Note
[2025-02-18 12:41] LABS: INR 1.1 (0.9-1.3); Prothrombin Time 11.9 Seconds (9.0-12.2)
--- NOTE | 2025-02-18 12:43 | PD.EDEXREM ---
ED Extremity Problem RME/HPI General Chief complaint: Extremity Problem,Nontraumatic Stated complaint: LEFT ARM ABCESS/INFECTION X1 WK Time Seen by Provider: 02/18/25 10:55 Arrival date/time: 02/18/25 09:52 Limitations: no limitations RME / HPI RME / HPI Narrative: Patient is a 59-year-old female with medical history notable for recent hospitalizationfor COPD exacerbation discharged on February 07 is in emerged from concerns for nonhealing wound on the right upper extremity. Patient states she had an IV placed in her right upper arm, has gone home and it has not healed. It itches, and has surrounding redness and some discharge now. Denies fevers chills nausea vomiting chest pain shortness of breath abdominal pain dysuria hematuria. 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 Previously smoked.Denies any trauma to the area Related Data Previous Rx's ?Medication ?Instructions ?Recorded albuterol sulfate 90 mcg/actuation 1 inh inhalation QID PRN shortness 02/07/25 aerosol inhaler of breath or wheezing #8.5 grams amiodarone 200 mg tablet 200 mg PO QDAY 30 days #30 tabs 02/07/25 apixaban 5 mg tablet 5 mg PO BID 30 days #60 tabs 02/07/25 furosemide 20 mg tablet 40 mg (2 x 20 mg) PO QDAY 1 month 02/07/25 #30 tabs metoprolol succinate 25 mg capsule 50 mg (2 x 25 mg) PO QDAY 1 month 02/07/25 sprinkle, ext. release 24 hr #30 ea prednisone 5 mg tablet See Taper PO QDAY #19 tabs 02/07/25 quetiapine 50 mg tablet 50 mg PO HS 15 days #15 tabs 02/07/25 umeclidinium 62.5 mcg-vilanterol 1 inh inhalation Q24H #60 ea 02/07/25 25 mcg/actuation powdr for inhalation (Anoro Ellipta) sulfamethoxazole 800 1 tab PO Q12H 7 days #14 tabs 02/18/25 mg-trimethoprim 160 mg tablet (Bactrim DS) Allergies Allergy/AdvReac Type Severity Reaction Status Date / Time Penicillins Allergy Severe I WILL Verified 02/18/25 09:54 Review of Systems Review of Systems Systems Reviewed: All systems reviewed, normal except as documented ED Exam General Limitations: Present no limitations General appearance: Present alert and in no apparent distress Head Head exam: Present atraumatic Eye Eye exam: Present normal appearance, PERRL and EOMI ENT ENT exam: Present normal exam, normal oropharynx and mucous membranes moist Neck Neck exam: Present normal inspection, full ROM and trachea midline Chest Chest inspection: Present normal inspection and symmetric chest wall rise Respiratory Respiratory exam: Present normal lung sounds bilaterally Cardiovascular Cardiovascular exam: Present regular rate, normal rhythm and normal heart sounds Abdominal Exam Abdominal exam: Present soft and normal bowel sounds Extremities Exam Extremities exam: Present normal inspection and full ROM Back Exam Back exam: Present normal inspection and full ROM Neurological Exam Neurological exam: Present alert and oriented X3 Psychiatric Psychiatric exam: Present normal affect and normal mood Skin Skin exam: Present dry, normal color and other (There is a superficial open wound measuring approximately 2 cm x 2 cm x 3 cm at the right antecubital fossa region. There is approximately 3 cm of surrounding erythema and induration with very mild warmth. No fluctuance is appreciated. I wound culture of the open wound was obtained.) Course Quality Measures none Orders Category Date Time Status CT Screening NOW Care 02/18/25 10:[address] elbow RT w con Stat Exams 02/18/25 10:58 Completed BNP [B-Type Natriuretic Peptide] Stat Lab 02/18/25 11:40 Completed Blood Culture (Lab) Stat Lab 02/18/25 11:45 Received CBC Stat Lab 02/18/25 11:40 Completed CMP [Comprehensive Metabolic Panel] Stat Lab 02/18/25 11:40 Completed PT [Prothrombin Time with INR] Stat Lab 02/18/25 11:40 Completed Furosemide [Lasix] Med 02/18/25 12:47 Discontinued 40 mg PO X1 ONE Vancomycin Pharmacy to Dose Med 02/18/25 11:00 Discontinued 1 each IV STAT STA Vancomycin/Water 1250 mg Ivpb 250 ml Med 02/18/25 11:15 Discontinued IV X1 Vital Signs Vital signs: Vital Signs Temperature 98.9 F 02/18/25 10:32 Pulse Rate 105 H 02/18/25 10:32 Respiratory Rate 19 02/18/25 10:32 Blood Pressure 131/94 H 02/18/25 10:32 Pulse Oximetry (%) 95 02/18/25 10:32 Oxygen Delivery Method Room Air 02/18/25 10:32 Extremity Problem MDM Narrative MDM Narrative:: Patient is a 59-year-old female with medical history notable for recent hospitalizationfor COPD exacerbation discharged on February 07 is in emerged from concerns for nonhealing wound on the right upper extremity. Patient states she had an IV placed in her right upper arm, has gone home and it has not healed. It itches, and has surrounding redness and some discharge now. Denies fevers chills nausea vomiting chest pain shortness of breath abdominal pain dysuria hematuria. 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 Previously smoked.Denies any trauma to the area On exam, patient is nontoxic-appearing in no visible signs distress. Vital signs are stable. She has a superficial, open wound, at the right AC with surrounding erythema. Workup reveals no leukocytosis. Metabolic panel is unremarkable exception of her bicarb at 35. BNP is 616. CT was stated reveals no abscess or soft tissue gas. There is a cellulitis pattern noted. Patient received a dose of vancomycin here. She also received furosemide. She will be discharged with a prescription of Septra DS. Wound care was discussed. Return precautions were discussed. Patient is invited to return at anytime for any worsening changes or concerns. Patient data External records reviewed:: None Clinical information provided by:: patient Social determinants that could affect healthcare access:: mental health Patient has the following chronic illnesses:: Bipolar How is presenting disease/condition affected by chronic disease/condition?: uneffected by Evaluation data The following diagnostics were reviewed and interpreted by me:: lab results and radiology exam(s) Lab and/or radiology exams considered but not ordered:: n/a Interpretation Summary: Cellulitis left AC Medications / Prescriptions Medications or Prescriptions considered but not ordered:: n/a Medication administrations:: Medication Administration History Discontinued Medications Furosemide (Furosemide 40 Mg Tablet) 40 mg PO X1 ONE Stop: 02/18/25 12:48 Last Admin: 02/18/25 13:04 Dose: 40 mg Documented By: ELHAM Vancomycin HCl (Vancomycin/Water 1250 Mg Ivpb) 250 mls @ 120 mls/hr IV X1 ONE Stop: 02/18/25 13:19 Last Admin: 02/18/25 13:10 Dose: 120 mls/hr Documented By: ELHAM Pharmacy Consult (Vancomycin Pharmacy To Dose 1 Each Each) 1 each IV STAT STA Stop: 02/18/25 11:01 Last Admin: 02/18/25 13:14 Dose: Not Given Documented By: [facility] Non-Admin Reason: Duplicate Medication on eMAR see above Consultations Consultation(s) initiated? (list below): No Diagnosis Most likely diagnosis given after review of the tests above:: Cellulitis left AC Admission Indicated Admission indicated?: not indicated Admission Request Was there a request for admission?: No Disposition Plan Disposition Plan: Discharge Discharge Attestation Discharge Attestation: The patient and all family members were given an opportunity to ask questions and understood the discharge instructions. Discharge instructions specifically effects, indications for sooner follow up or return to the emergency department, and the expected course of current diagnosis. Patient condition: Stable Discharge Plan Plan Patient Disposition: HOME (Self Care) Patient condition on transfer: Stable Prescriptions/Referrals Prescriptions/Med Rec: New sulfamethoxazole-trimethoprim [Bactrim DS] 800-160 mg tablet 1 tab PO Q12H 7 Days Qty: 14 0RF No Action amiodarone 200 mg Tablet 200 mg PO QDAY 30 Days Qty: 30 0RF apixaban 5 mg tablet 5 mg PO BID 30 Days Qty: 60 0RF quetiapine 50 mg tablet 50 mg PO HS 15 Days Qty: 15 0RF prednisone 5 mg tablet See Taper PO QDAY Qty: 19 0RF Taper: Prednisone Taper 20 mg DAILY for 2 Days and 0 Hour 10 mg DAILY for 2 Days and 0 Hour 5 mg DAILY for 7 Days and 0 Hour umeclidinium-vilanterol [Anoro Ellipta] 62.5-25 mcg/actuation blister with device 1 inh inhalation Q24H Qty: 60 0RF albuterol sulfate 90 mcg/actuation HFA aerosol inhaler 1 inh inhalation QID PRN (Reason: shortness of breath or wheezing) Qty: 8.5 0RF furosemide 20 mg tablet 40 mg PO QDAY 30 Days Qty: 30 1RF metoprolol succinate 25 mg capsule,sprinkle,ER 24hr 50 mg PO QDAY 30 Days Qty: 30 1RF Referrals: No Primary/Family,Physician [Primary Care Provider] - In 1 week Problem List Clinical Impression: Cellulitis Patient/Caregiver Discharge Instructions Additional Instructions: - Continue wound care. You may apply [id number] antibiotic ointment to the affected area. - Do not use any hydroperoxide, alcohol, or iodine over the open wound. - Use the provided antibiotic as prescribed. We are sending you home with a prescription of a sulfa-based antibiotic to use every 12 hours for 1 week. - You may also apply a frequent warm compress to your arm. - Please return to the emergency room at anytime for any worsening or emergent changes. Print Language: Spanish Stand Alone Forms: Joan Award Info., Patient Portal Info Letter
[2025-02-18 12:49] VITALS: BP 131/90; PULSE 96; RESP 18; TEMP 37.4; O2SAT 95
--- NOTE | 2025-02-18 12:59 | PC.NURSE ---
PT HERE WITH OPEN WOUND TO RIGHT UPPER ARM S/P IV INSERTION THERE FROM RECENT HOSPITAL ADMIT. WOUND COVERED AT THIS TIME
[2025-02-18 13:04] VITALS: BP 121/90; PULSE 87
[2025-02-18] MEDS: VANCOMYCIN/WATER 1250 MG IVPB 250 ML 120 MG IV (13:10)
[2025-02-18 14:24] VITALS: BP 131/94; PULSE 85; RESP 26; TEMP 36.6; O2SAT 94
[2025-02-18 15:56] VITALS: BP 105/84; PULSE 98; RESP 18; TEMP 37.1; O2SAT 95
== END 2025-02-18 16:32 | disposition home or self-care (01) ==
PROVIDERS: Emergency Provider Emergency Medicine
DX: L02.413 Cutaneous abscess of right upper limb (principal)
CPT/HCPCS: 36415; 73201; 80053; 83880; 85025; 85610; 87040; 87077; 87186; 96365; 96366; 99283; A4649; J3372; Q9967; A9270